=== PATIENT | male | born 1955 | race Two or more races ===

== ENCOUNTER 2020-03-27 07:09 | Outpatient (REF) | payer OTHER, SELFPAY ==
[2020-03-27 08:22] LABS: Hematocrit 44.7 % (42-52); Hemoglobin 14.6 g/dl (14.0-18.0); Mean Corpuscular HGB Conc 32.7 g/dl (31.0-36.0); Mean Corpuscular Hemoglobin 29.6 pg (27.0-33.0); Mean Corpuscular Volume 90.5 fL (80-98); Mean Platelet Volume 9.6 fL (9.4-12.4); Platelet Count 216 X10*3/uL (160-400); Red Blood Count 4.94 X10*6/uL (4.60-5.80)
[2020-03-27 08:42] LABS: Estimated Average Glucose 148 mg/dL; Hemoglobin A1c % 6.8 %
[2020-03-27 08:43] LABS: Alanine Aminotransferase 62 U/L (0-40); Albumin Level 4.5 g/dL (3.5-5.0); Alkaline Phosphatase 75 U/L (39-117); Anion Gap 13 (12-20); Aspartate Amino Transferase 28 U/L (5-37); Bilirubin Total 0.4 mg/dL (0.0-1.0); Blood Urea Nitrogen 21 mg/dL (9-16); Calcium 9.9 mg/dL (8.4-10.2); Carbon Dioxide 29 mmol/L (22-29); Chloride 104 mmol/L (96-108); Cholesterol 142 mg/dL; Estimated Glomerular Filt Rate > 60; Glucose Fasting 155 mg/dL (60-99); HDL Cholesterol 43 mg/dL; LDL Cholesterol Calculated 70 mg/dl; Potassium 4.5 mmol/l (3.3-5.1); Sodium 141 mmol/L (135-145); Total Protein 7.4 g/dL (6.5-8.0); Triglycerides 147 mg/dL
[2020-03-27 08:48] LABS: Microalbum/Creatinine Ratio Ur 29.9 ug/mg cr
[2020-03-27 09:11] LABS: Vitamin D 25-OH Total 37.2 ng/mL (>30)
== END 2020-03-27 07:10 | disposition home or self-care (01) ==
LOC: HO.LAB 07:09
PROVIDERS: PCP Nurse Practitioner Family; Visit Provider Nurse Practitioner Family
DX: E11.29 Type 2 diabetes mellitus with other diabetic kidney complication (principal); E11.69 Type 2 diabetes mellitus with other specified complication; I10 Essential (primary) hypertension; M81.0 Age-related osteoporosis without current pathological fracture; R35.1 Nocturia
CPT/HCPCS: 36415; 80053; 80061; 82043; 82306; 83036; 84153; 85027

== ENCOUNTER 2020-09-04 09:46 | Outpatient (REF) | payer OTHER, SELFPAY ==
[2020-09-04 10:59] LABS: Alanine Aminotransferase 36 U/L (0-40); Albumin Level 4.5 g/dL (3.5-5.0); Alkaline Phosphatase 76 U/L (39-117); Anion Gap 13 (12-20); Aspartate Amino Transferase 21 U/L (5-37); Bilirubin Total 0.7 mg/dL (0.0-1.0); Blood Urea Nitrogen 19 mg/dL (9-16); Carbon Dioxide 28 mmol/L (22-29); Chloride 103 mmol/L (96-108); Estimated Glomerular Filt Rate > 60; Glucose Random 225 mg/dL (60-115); Potassium 4.2 mmol/L (3.3-5.1); Sodium 140 mmol/L (135-145); Total Protein 7.5 g/dL (6.5-8.0)
[2020-09-04 11:23] LABS: Estimated Average Glucose 160 mg/dL; Hemoglobin A1c % 7.2 %
== END 2020-09-04 09:47 | disposition home or self-care (01) ==
LOC: HO.LAB 09:46
PROVIDERS: PCP Family Medicine; Visit Provider Family Medicine
DX: E11.29 Type 2 diabetes mellitus with other diabetic kidney complication (principal); R89.9 Unspecified abnormal finding in specimens from other organs, systems and tissues
CPT/HCPCS: 36415; 80053; 83036

== ENCOUNTER → 2020-12-17 10:16 | Outpatient (BNVA) | payer OTHER, SELFPAY | PROVIDERS: PCP Family Medicine; Referring Provider Family Medicine; Visit Provider Internal Medicine Cardiovascular Disease | DX: I25.10 Atherosclerotic heart disease of native coronary artery without angina pectoris (principal); I11.9 Hypertensive heart disease without heart failure | CPT/HCPCS: 93005; 99212 ==

== ENCOUNTER → 2021-03-18 09:20 | Outpatient (REF) | payer OTHER, SELFPAY ==
--- NOTE | 2021-03-18 09:23 | CA_ITS ---
Transthoracic Echocardiogram Patient (Last, First, Middle): Talha Mendoza, Gender: Male Date of : 1955 Age: 65 Procedure Date: 03/18/2021 Procedure Type: Transthoracic Echocardiogram Location: OP Height: 167.64 cm Weight: 100.25 kg BSA: 2.09 m2 Heart Rate: bpm BP: 128 / 80 mmHg [employer]: MELISA Referring MD: Jeevan Marte MD Informatics Coordinator: Jeevan Marte MD Symptoms: I11.9 - Hypertensive heart disease without heart failure Study Quality: Fair ECG Rhythm: Sinus Conclusions: - 1. Normal LV systolic function with mild LVH with grade 1 diastolic dysfunction 2. Mildly dilated left atrium 3. Normal cardiac valvular Doppler 4. No pulmonary hypertension 5. No gross pericardial effusion Findings Left Ventricle Normal left ventricular size and systolic function. There is mildly increased left ventricular wall thickness. The visually estimated ejection fraction is between 55-60%. Spectral Doppler is indicative of an impaired relaxation filling pattern. E/E prime ratio is <8, consistent with normal filling pressures. Evidence suggests grade I (mild) diastolic dysfunction. Right Ventricle Normal right ventricular cavity size. Atria The left atrium is mildly dilated. Interatrial shunt cannot be excluded. The right atrium is normal in size. Aortic Valve The aortic valve structure and function is likely normal. There is no aortic valve stenosis. There is no aortic valve regurgitation. Mitral Valve Likely normal mitral valve structure and function. There is trace mitral valve regurgitation. There is no mitral valve stenosis. Pulmonic Valve The pulmonic valve was not well visualized. Tricuspid Valve There is trace tricuspid valve regurgitation. There is no evidence of pulmonary hypertension. Great Vessels All visible segments of the aorta are normal in size. The pulmonary artery was not well visualized. Venous The inferior vena cava was not well visualized. Pericardium/Pleural There is no evidence of pericardial effusion. Prior Study Comparison No significant change compared to prior study dated: 11/07/2018. Measurements 2D Linear Measurements IVSd: 1.24 0.6-0.9/0.6-1.0 cm LVIDd: 4.67 3.9-5.3/4.2-5.9 cm LVIDd Index: 2.23 2.4-3.2/2.2-3.1 cm/m2 LVIDs: 2.98 2.0-3.6 cm LVPWd: 1.27 0.7-1.1 cm Ao Root: 3.50 2.1-3.5 cm LA Diam: 4.20 2.7-3.8/3.0-4.0 cm LAIDs Index: 2.01 1.5-2.3 cm/m2 LV Mass: 279.03 67-162/88-224 g LV Mass Index: 133.51 43-95/49-115 g/m2 LVOT Diam: 2.00 3.0+(-)1.3 cm Mitral Valve MV Pk E: 0.47 MV PK A: 0.86 MV Decel Time: 229.00 E/A: 0.50 E'Lateral: 8.49 E'Medial: 6.42 E/E' Med: 7.30 E/E' Lat: 5.50 PHT: 67.00 MVA PHT: 3.28 Decel [place]: 2.06 Aortic Valve AoV Pk Po: 1.32 AoV Mn Po: 0.94 AoV VTI: 0.25 AoV Pk Grad: 7.00 Aov Mn Grad: 4.00 ARNOL Cont.VTI: 2.25 LVOT LVOT Pk Po: 1.05 LVOT Mn Po: 0.62 LVOT VTI: 0.18 LVOT Pk Grad: 4.00 LVOT Mn Grad: 2.00 LVOT Diam: 2.00 LVOT Area: 3.14 Diastolic Function MV Pk E: 0.47 MV Pk A: 0.86 E/A: 0.50 E'Medial: 6.42 E/E' Med: 7.30 E' Laterial: 8.49 E/E' Lat: 5.50 Tricuspid Valve TR Pk Po: 1.75 TR Pk Grad: 12.00 Great Vessels Aorta Ao Root-2D: 3.50 2.0-3.7 cm Ao Asc: 3.40 2.1-3.4 cm Pulmonary Valve PV Pk Po: 0.92 Peak PV Grad: 3.00 Updated in Other Vendor System with Status of Final Jeevan Marte MD electronically signed on 03/18/2021 4:14:05 PM with status of Final
== END ==
LOC: HO.CARD 09:20
PROVIDERS: PCP Family Medicine; Visit Provider Internal Medicine Cardiovascular Disease
DX: I25.10 Atherosclerotic heart disease of native coronary artery without angina pectoris (principal); I11.9 Hypertensive heart disease without heart failure
CPT/HCPCS: 93306

== ENCOUNTER 2021-04-22 08:48 | Outpatient (REF) | payer OTHER, SELFPAY ==
[2021-04-22 09:03] LABS: MANUAL DIFF FLAG NO
[2021-04-22 09:15] LABS: Basophils Percent Auto 0.5 % (0-2); Eosinophils Absolute Auto 0.3 X10*3/uL (0.0-0.4); Eosinophils Percent Auto 3.5 % (0-4); Hematocrit 45.6 % (42-52); Hemoglobin 14.9 g/dl (14.0-18.0); Imm Gran Abs Auto 0.04 X10*3/uL (0.00-0.03); Imm Gran Pct Auto 0.5 % (0.0-0.4); Lymphocytes Absolute Auto 2.9 X10*3/uL (1.2-4.9); Lymphocytes Percent Auto 39.2 % (20-40); Mean Corpuscular HGB Conc 32.7 g/dl (31.0-36.0); Mean Corpuscular Hemoglobin 29.2 pg (27.0-33.0); Mean Corpuscular Volume 89.4 fL (80-98); Mean Platelet Volume 9.2 fL (9.4-12.4); Monocytes Absolute Auto 0.7 X10*3/uL (0.1-1.2); Neutrophils Absolute Auto 3.5 X10*3/uL (2.0-8.3); Neutrophils Percent Auto 47.3 % (45-73); Platelet Count 227 X10*3/uL (160-400); Red Cell Distribution Width 13.2 % (11.0-16.0); White Blood Count 7.4 X10*3/uL (4.8-10.8)
[2021-04-22 09:17] LABS: Estimated Average Glucose 146 mg/dL; Hemoglobin A1c % 6.7 %
[2021-04-22 09:46] LABS: Anion Gap 14 (12-20); Blood Urea Nitrogen 17 mg/dL (9-16); Calcium 10.2 mg/dL (8.4-10.2); Carbon Dioxide 28 mmol/L (22-29); Chloride 105 mmol/L (96-108); Estimated Glomerular Filt Rate > 60; Iron 76 mcg/dL (45-160); Percent Iron Saturation 23 % (15-50); Potassium 4.5 mmol/L (3.3-5.1); Sodium 142 mmol/L (135-145); Total Iron Binding Capacity 337 mcg/dL (228-428); Unsaturated Iron Binding 261 ug/dL
[2021-04-22 09:59] LABS: Appearance Urine CLEAR; Color Urine YELLOW; Glucose Urine UA NEG (NEG); Leukocyte Esterase Urine NEG (NEG); Nitrite Urine NEG (NEG); Specific Gravity - Urine 1.025 (1.005-1.025); Urine Blood NEG (NEG); Urine Ketones NEG (NEG); Urine Protein TRACE MG/DL (NEG-TRACE)
[2021-04-22 10:07] LABS: Vitamin D 25-OH Total 38.5 ng/mL (>30)
[2021-04-22 10:31] LABS: Creatinine Urine 153.48 mg/dL; Protein/Creatinine Ratio, Ur 0.08 (<0.2); Total Protein Urine Random 13 mg/dL (<12)
[2021-04-25 14:31] LABS: Calcium (PTHI) 10.3 mg/dL (8.6-10.3); PTHI 28 pg/mL (14-64)
== END 2021-04-22 08:49 | disposition home or self-care (01) ==
LOC: HO.LAB 08:48
PROVIDERS: PCP Family Medicine; Visit Provider Internal Medicine Nephrology
DX: I12.9 Hypertensive chronic kidney disease with stage 1 through stage 4 chronic kidney disease, or unspecified chronic kidney disease (principal); E11.22 Type 2 diabetes mellitus with diabetic chronic kidney disease; N18.2 Chronic kidney disease, stage 2 (mild)
CPT/HCPCS: 36415; 80051; 81003; 82306; 82310; 82565; 83036; 83540; 83970; 84156; 84520; 85025

== ENCOUNTER 2021-05-12 09:22 | Outpatient (REF) | payer OTHER, SELFPAY ==
--- NOTE | ~2021-05-12 | XR_ITS ---
EXAMINATION: XR SHOULDER, LEFT CLINICAL INFORMATION: Pain in left shoulder COMPARISON: None TECHNIQUE: AP external rotation, Grashey, scapular Y, and axillary views of the left shoulder. FINDINGS: Glenohumeral joint is normal. Minor degenerative joint narrowing and spur of the acromioclavicular joint. No bone erosions. No soft tissue calcification. XR/XR shoulder LT min 2V IMPRESSION: Minor degenerative change of the acromioclavicular joint. Normal glenohumeral joint.
--- NOTE | ~2021-05-12 | XR_ITS ---
EXAMINATION: XR SHOULDER, RIGHT CLINICAL INFORMATION: Pain in right shoulder COMPARISON: None TECHNIQUE: Four views of the right shoulder. FINDINGS: The bones and soft tissues are normal. No fracture. Glenohumeral and acromioclavicular alignment is anatomic with normal joint space. No abnormal soft tissue calcifications. XR/XR shoulder RT min 2V IMPRESSION: Normal right shoulder.
== END 2021-05-12 09:23 | disposition home or self-care (01) ==
LOC: HO.XRAY 09:22
PROVIDERS: PCP Nurse Practitioner Primary Care; Visit Provider Nurse Practitioner Primary Care
DX: M25.511 Pain in right shoulder (principal); M25.512 Pain in left shoulder
CPT/HCPCS: 73030

== ENCOUNTER 2021-09-05 10:22 | Outpatient (REF) | payer OTHER, SELFPAY ==
[2021-09-05 12:33] LABS: Creatinine Urine 79.52 mg/dL; Microalbum/Creatinine Ratio Ur 60.3 ug/mg cr
[2021-09-05 12:43] LABS: Anion Gap 10 (12-20); Blood Urea Nitrogen 18 mg/dL (9-16); Calcium 9.7 mg/dL (8.4-10.2); Carbon Dioxide 28 mmol/L (22-29); Chloride 105 mmol/L (96-108); Estimated Glomerular Filt Rate > 60; Glucose Random 173 mg/dL (60-115); Potassium 4.3 mmol/L (3.3-5.1); Sodium 139 mmol/L (135-145)
== END 2021-09-05 10:23 | disposition home or self-care (01) ==
LOC: HO.LAB 10:22
PROVIDERS: PCP Nurse Practitioner Primary Care; Visit Provider Nurse Practitioner Primary Care
DX: E11.65 Type 2 diabetes mellitus with hyperglycemia (principal)
CPT/HCPCS: 36415; 80048; 82043

== ENCOUNTER → 2021-09-23 08:43 | Outpatient (BNVA) | payer OTHER, SELFPAY | PROVIDERS: PCP Nurse Practitioner Primary Care; Visit Provider Physician Assistant | DX: M75.82 Other shoulder lesions, left shoulder (principal) | CPT/HCPCS: 20610; 99202; J1020 ==

== ENCOUNTER → 2021-11-04 11:07 | Outpatient (BNVA) | payer OTHER, SELFPAY | PROVIDERS: PCP Nurse Practitioner Primary Care; Visit Provider Physician Assistant | DX: M75.82 Other shoulder lesions, left shoulder (principal) | CPT/HCPCS: 99212 ==

== ENCOUNTER 2021-12-02 11:00 | Outpatient (RCR) | payer OTHER, SELFPAY ==
[2021-10-28 10:22] VITALS: BP 134/71; PULSE 74; O2SAT 96
--- NOTE | 2021-10-28 11:47 | MHC.PT.EP ---
[facility] [place] Office [place] Office [place] Office [address] Rad[address] Flanagan [address] [phone] F: [phone] F: [phone] F: [phone] F: [phone] Physical Therapy Plan of Care Date of Evaluation: Date of Surgery: Diagnosis: TENDONITIS LEFT SHOULDER Assessment: 66 YO MALE REF TO PT W 4 MONTH H/O PROGRESSIVE Lt SH PAIN- HE HAD AN INJECTION 09/23/21 W MINIMAL SX RELIEF. 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 OBJECTIVE FINDINGS: DECR POSTURAL AWARENESS, LIMITED CERV AND DARELL SH AROM, STRENGTH DEFICITS IN POST RC/ SCAP MM WELL >SH HEIGHT DUE TO PAIN, AND LEFT SH PAIN W (+) TISSUE TENSION-ESPEC IN POSTERIOR CHAIN. FUNCTIONALLY, Pt IS LIMITED W SLEEP, LIFTING/ CARRYING, HOUSE CHORES- REQ INCR UEs USAGE. Pt WOULD BENEFIT FROM PT TO ADDRESS THE ABOVE FINDINGS, PAIN MGMT, DEV SELF- SX MGMT STRATEGIES, AND EDUC Pt RE BODY MECH W CARETAKING DUTY SIMIL . Frequency and Duration: The patient will be seen 2 x WK x 5 WKS Short Term Goals: Pt INDEP SELF CORRECT POSTURE AND DEMON BODY MECH FOR SIMUL ADL CARE W HIS SPOUSE IN 2 WKS Pt'S POSTERIOR CHAIN TISSUE TENSION EASED AND LEFT SH PAIN DECR TO 2-3/10 IN 2 WKS Pt DEMON WFL AROM Lt SH AND CERV AROM WFL IN 3 WKS Reception Manager Goals: Pt INDEP W HEP PROGRESSION AND SELF-SX MGMT STRATEGIES IN 5 WKS Pt RESUME REG ADLs EVIDENT W IMPROVED SPADI SCORE BY 8-10 POINTS (AT EVAL 94/130 ) IN 5 WKS Treatment Plan: Modalities to reduce pain, spasms and effusion. Manual therapy to restore motion and function. Therapeutic exercise to improve strength and flexibility. Neuromuscular re-education for posture and balance. Therapeutic activities to return to functional activities of daily living. Electronically signed by: Leti Pringle,PT Please sign and return to therapist. Thank you for your referral.
--- NOTE | 2021-12-02 15:09 | MHC.PT.DC ---
[facility] [place] Office [place] Office [place] Office [address] Justa Flanagan [address] [phone] F: [phone] F: [phone] F: [phone] F: [phone] Physical Therapy Discharge Report Diagnosis: TENDONITIS LEFT SHOULDER Date of Surgery: Date of Evaluation: 10/28/21 Date of Discharge: 12/02/21 Treatments to Date: 6 Cancellations to Date: No Shows to Date: Discharge Status: Achieved Goals Improved Function Independent with HEP Discharge Summary: Pt HAS PROGRESSED WELL IN PT- HE STATED HE IS PLEASED W HIS PROGRESS AND IS READY TO CONT W HEP ON HIS OWN. HE HAS BEEN ABLE TO RESUME REG ADLs, SELF CORRECT POSTURE, AND CARE FOR HIS . HIS Lt SHOULDER PAIN IS SIGNIF REDUCED AND NO LONGER CONSTANT. HE MET PT GOALS AND DEMON IMPROVED SPADI SCORE. Electronically signed by: Leti Pringle,PT Please sign and return to therapist. Thank you for your referral.
== END 2021-12-02 15:10 | disposition home or self-care (01) ==
LOC: HO.PT 11:00
PROVIDERS: PCP Nurse Practitioner Primary Care; Visit Provider Physician Assistant
DX: M75.82 Other shoulder lesions, left shoulder (principal)
CPT/HCPCS: 97110; 97162

== ENCOUNTER 2022-01-07 07:12 | Outpatient (REF) | payer OTHER, SELFPAY ==
[2022-01-07 08:56] LABS: Cholesterol 142 mg/dL; HDL Cholesterol 45 mg/dL; LDL Cholesterol Calculated 60 mg/dl; Triglycerides 185 mg/dL
[2022-01-07 09:05] LABS: Estimated Average Glucose 163 mg/dL; Hemoglobin A1c % 7.3 %
== END 2022-01-07 07:13 | disposition home or self-care (01) ==
LOC: HO.LAB 07:12
PROVIDERS: PCP Nurse Practitioner Primary Care; Visit Provider Registered Nurse
DX: Z79.899 Other long term (current) drug therapy (principal)
CPT/HCPCS: 36415; 80061; 83036

== ENCOUNTER 2022-04-27 08:13 | Outpatient (REF) | payer OTHER, SELFPAY ==
[2022-04-27 08:26] LABS: MANUAL DIFF FLAG NO
[2022-04-27 08:48] LABS: Basophils Percent Auto 0.5 % (0-2); Eosinophils Absolute Auto 0.2 X10*3/uL (0.0-0.4); Hemoglobin 14.7 g/dl (14.0-18.0); Imm Gran Abs Auto 0.05 X10*3/uL (0.00-0.03); Imm Gran Pct Auto 0.6 % (0.0-0.4); Lymphocytes Absolute Auto 3.1 X10*3/uL (1.2-4.9); Lymphocytes Percent Auto 39.2 % (20-40); Mean Corpuscular HGB Conc 33.4 g/dl (31.0-36.0); Mean Corpuscular Hemoglobin 28.7 pg (27.0-33.0); Mean Corpuscular Volume 85.9 fL (80.0-98.0); Mean Platelet Volume 9.4 fL (9.4-12.4); Monocytes Absolute Auto 0.8 X10*3/uL (0.1-1.2); Monocytes Percent Auto 9.7 % (2-11); Neutrophils Absolute Auto 3.8 x10*3/uL (2.0-8.3); Platelet Count 209 X10*3/uL (160-400); Red Blood Count 5.12 X10*6/uL (4.60-5.80); Red Cell Distribution Width 13.2 % (11.0-16.0)
[2022-04-27 09:01] LABS: Estimated Average Glucose 180 mg/dL; Hemoglobin A1c % 7.9 %
[2022-04-27 09:13] LABS: Anion Gap 16 (12-20); Blood Urea Nitrogen 19 mg/dL (9-16); Calcium 10.2 mg/dL (8.4-10.2); Chloride 102 mmol/L (96-108); Estimated Glomerular Filt Rate > 60; Iron 73 mcg/dL (45-160); Percent Iron Saturation 21 % (15-50); Potassium 4.2 mmol/L (3.3-5.1); Sodium 141 mmol/L (135-145); Total Iron Binding Capacity 353 mcg/dL (228-428); Unsaturated Iron Binding 280 ug/dL; Uric Acid 5.9 mg/dL (3.4-7.0)
[2022-04-27 09:17] LABS: Carbon Dioxide 27 mmol/L (22-29)
[2022-04-27 09:37] LABS: Ferritin 291 ng/mL (20-250); Vitamin D 25-OH Total 31.9 ng/mL (>30)
[2022-04-27 10:26] LABS: Appearance Urine Clear; Color Urine Yellow; Glucose Urine UA Negative (Negative); Leukocyte Esterase Urine Negative (Negative); Nitrite Urine Negative (Negative); PH 5.5 (5.0-9.0); Urine Blood Negative (Negative); Urine Ketones Negative (Negative); Urine Protein Trace mg/dL (Neg-Trace)
[2022-04-27 10:46] LABS: Creatinine Urine 172.33 mg/dL; Protein/Creatinine Ratio, Ur 0.14 (<0.2); Total Protein Urine Random 24 mg/dL (<12)
[2022-05-01 12:42] LABS: Calcium (PTHI) 10.1 mg/dL (8.6-10.3); PTHI 38 pg/mL (16-77)
== END 2022-04-27 08:14 | disposition home or self-care (01) ==
LOC: HO.LAB 08:13
PROVIDERS: PCP Nurse Practitioner Primary Care; Visit Provider Physician Assistant
DX: E11.22 Type 2 diabetes mellitus with diabetic chronic kidney disease (principal); N18.2 Chronic kidney disease, stage 2 (mild); D50.8 Other iron deficiency anemias; E55.9 Vitamin D deficiency, unspecified
CPT/HCPCS: 36415; 80051; 81003; 82306; 82310; 82565; 82728; 83036; 83540; 83970; 84156; 84520; 84550; 85025

== ENCOUNTER 2022-08-11 13:03 | Outpatient (REF) | payer OTHER, SELFPAY ==
--- NOTE | ~2022-08-11 | US_ITS ---
EXAMINATION: US RETROPERITONEAL LIMITED (AORTA) CLINICAL INFORMATION: Screening for cardiovascular disorders. Smoker. COMPARISON: None TECHNIQUE: Riggs-scale, color Doppler and spectral Doppler evaluation of the abdominal aorta. FINDINGS: The aorta is normal. The measurements of the aorta in maximum AP and transverse dimensions respectively are as follows: Proximal: 2.2 x 2.6 cm. Mid: 1.8 x 1.6 cm. Distal: 1.7 x 1.6 cm. PSV: 98 cm/s. The measurements of the common iliac arteries in maximum AP and TRV dimensions are as follows: Right Common Iliac Artery: 1.0 x 1.1 cm. Left Common Iliac Artery: 0.9 x 1.1 cm. US/US abdominal aortic aneurysm IMPRESSION: There is mild ectasia of the proximal abdominal aorta. No jose aneurysm formation is noted.
== END 2022-08-11 13:04 | disposition home or self-care (01) ==
LOC: HO.US 13:03
PROVIDERS: Visit Provider Nurse Practitioner Primary Care
DX: Z13.6 Encounter for screening for cardiovascular disorders (principal); Z87.891 Personal history of nicotine dependence
CPT/HCPCS: 76706

== ENCOUNTER 2022-10-06 13:04 | Outpatient (REF) | payer OTHER, SELFPAY ==
--- NOTE | ~2022-10-06 | CT_ITS ---
EXAMINATION: CT CHEST SCREENING CLINICAL INFORMATION: Former smoker. Quit 8 years ago. 48 pack year history. COMPARISON: Previous chest x-ray April 2018 TECHNIQUE: Multidetector volumetric CT imaging of the chest is performed without contrast using low dose technique. Additional 2D coronal and sagittal reformatted images and axial 3D maximum intensity projection (MIP) images are generated on the CT workstation. This CT examination was performed using dose optimization techniques as appropriate, variously including the following: *Automated exposure control *Adjustment of mA and/or kV according to patient size (this includes techniques or standardized protocols for targeted exams where dose is matched to indication/reason for exam; i.e. extremities or head) *Use of iterative reconstruction technique DLP: 57 mGy-cm FINDINGS: LUNGS: 2 mm peripheral or subpleural right lower lobe nodule axial image 255 and axial image 276 series 5. No endobronchial or endotracheal lesion. MEDIASTINUM: The mediastinum is normal. CORONARY ARTERY CALCIFICATION: None visualized on this study. PLEURA: There is no pleural effusion. No pleural mass or thickening. AXILLA: Small bilateral axillary lymph nodes. No chest wall mass or enlarged axillary lymph nodes UPPER ABDOMEN: There is a mild diverticulosis colon. OSSEOUS STRUCTURES: Degenerative changes of the spine. CT/CT lung screening IMPRESSION: Small pulmonary nodules or micronodules in the right lower lobe. ASSESSMENT: Lung-RADS category 2: Benign RECOMMENDATION: Annual low-dose chest CT follow-up recommended
== END 2022-10-06 13:05 | disposition home or self-care (01) ==
LOC: HO.CT 13:04
PROVIDERS: PCP Nurse Practitioner Primary Care; Visit Provider Physician Assistant Medical
DX: Z12.2 Encounter for screening for malignant neoplasm of respiratory organs (principal); Z87.891 Personal history of nicotine dependence
CPT/HCPCS: 71271; G0296

== ENCOUNTER 2022-10-12 10:38 | Outpatient (REF) | payer OTHER, SELFPAY ==
--- NOTE | ~2022-10-12 | XR_ITS ---
EXAMINATION: XR HIP, RIGHT CLINICAL INFORMATION: Right hip pain. COMPARISON: CT dated 03/03/2013. TECHNIQUE: AP and frog-leg lateral views of the right hip. FINDINGS: Two partially-threaded cannulated screws are appropriately situated at the femoral head and neck. No appreciable residual or recurrent fracture lines. There is mild osteoarthritis at the right hip with marginal osteophytes and subtle cortical irregularity. Joint space appears relatively well preserved. Foci of periosteal bone formation at the proximal femoral diaphysis appear chronic and are likely enthesopathic in nature. No aggressive osseous lesions. Soft tissues are unremarkable. XR/XR hip RT min 2V IMPRESSION: 1. Mild osteoarthritis in the right hip. No acute osseous findings. 2. Old healed right femoral neck fracture status post ORIF.
== END 2022-10-12 10:39 | disposition home or self-care (01) ==
LOC: HO.XRAY 10:38
PROVIDERS: PCP Nurse Practitioner Primary Care; Visit Provider Nurse Practitioner Primary Care
DX: M25.551 Pain in right hip (principal)
CPT/HCPCS: 73502

== ENCOUNTER → 2022-12-18 10:20 | Outpatient (BNVA) | payer OTHER, SELFPAY | PROVIDERS: PCP Nurse Practitioner Primary Care; Referring Provider Nurse Practitioner Primary Care; Visit Provider Internal Medicine Cardiovascular Disease | DX: I25.10 Atherosclerotic heart disease of native coronary artery without angina pectoris (principal); I11.9 Hypertensive heart disease without heart failure | CPT/HCPCS: 93005; 99212 ==

== ENCOUNTER 2023-03-25 08:40 | Emergency (ER) | payer OTHER, SELFPAY ==
--- NOTE | ~2023-03-25 | XR_ITS ---
EXAMINATION: XR RIBS, BILATERAL CLINICAL INFORMATION: Right rib pain. Trauma. COMPARISON: Previous chest x-ray April [address] September 2022 TECHNIQUE: 3 views of the bilateral ribs were obtained. FINDINGS: Lungs are clear. No consolidation, pneumothorax, or pleural effusion. The cardiomediastinal silhouette and pulmonary vasculature are normal. Old-appearing right anterior eighth rib fracture. There may be a fracture of the right anterior seventh rib near the costochondral junction. This is indeterminate in age. No left-sided rib fracture. Degenerative changes of the thoracic spine. XR/XR ribs BI min 4V w CXR1V IMPRESSION: No evidence for acute disease in the chest. Old-appearing right eighth anterior rib fracture. Question right anterior seventh rib fracture near the costochondral junction, indeterminate age. No left rib fracture.
[2023-03-25 08:42] VITALS: BP 153/76; PULSE 94; RESP 16; TEMP 36.7; O2SAT 95; BMI 34.7
--- NOTE | 2023-03-25 09:15 | ED.GENADULT ---
HPI - General Adult General Chief complaint: General Medical Stated complaint: hit his R side Time Seen by Provider: 03/25/23 08:54 Source: patient Mode of arrival: ambulatory Limitations: no limitations History of Present Illness HPI narrative: 67 year old male with PMHx significant for CAD, HTN, HDL, aortic ectasia, diabetes, GERD, SRINATH, and tubular adenoma of colon presenting to the ED today with right-sided rib pain after reaching into the back seat of his vehicle to reach for something and jamming his ribs into the center console 3 days ago. Reports pain began the following day and has been constant since, unchanged. Reports pain to the lower anterior and lateral rib area without radiation, worse with coughing and with palpation. Additionally endorses dry cough over the last 4 days along with left-sided shoulder pain at x2 weeks. Denies DENNEY, dizziness, fever, chills, sweats, rash, chest pain, SOB, MART, N/V, abdominal pain, or LE swelling or pain. Former tobacco smoker, quit in 2011. Related Data Home Medications Medication Instructions Recorded Confirmed acetaminophen 500 mg capsule 500 mg PO Q6H PRN 12/17/20 12/18/22 albuterol 90 mcg/actuation aerosol mcg inhalation 12/17/20 12/18/22 inhaler albuterol sulfate 2.5 mg/3 mL 2.5 mg inhalation Q4-6H PRN 12/17/20 12/18/22 (0.083 %) solution for nebulization amlodipine 10 mg tablet (Norvasc) 10 mg PO DAILY 12/17/20 12/18/22 blood sugar diagnostic (FreeStyle #10 ea 12/17/20 Lite Strips) calcium carbonate 500 mg calcium 500 mg PO DAILY 12/17/20 12/18/22 (1,250 mg) tablet (Calcium 500) cholecalciferol (vitamin D3) 25 25 mcg PO DAILY 12/17/20 12/18/22 mcg (1,000 unit) capsule clonazepam 1 mg tablet (Klonopin) 1 mg PO DAILY 12/17/20 12/18/22 cyclobenzaprine 10 mg tablet 10 mg PO TID 12/17/20 12/18/22 escitalopram oxalate 10 mg tablet 10 mg PO DAILY 12/17/20 12/18/22 flunisolide 25 mcg (0.025 %) nasal 2 spray intranasal BID 12/17/20 12/18/22 spray losartan 100 mg tablet 100 mg PO DAILY 12/17/20 12/18/22 metformin 500 mg tablet,extended 500 mg PO DAILY 12/17/20 12/18/22 release 24 hr montelukast 10 mg tablet 10 mg PO QPM 12/17/20 12/18/22 pravastatin 20 mg tablet 20 mg PO BEDTIME 12/17/20 12/18/22 ranitidine HCl 150 mg capsule mg PO 12/17/20 12/18/22 risperidone 1 mg tablet (Risperdal) 1 mg PO BID 12/17/20 12/18/22 Previous Rx's Medication Instructions Recorded clopidogrel 75 mg tablet 75 mg PO DAILY 90 days #90 tabs 05/17/22 tramadol 50 mg tablet 50 mg PO BEDTIME PRN pain (scale 03/25/23 score 7-10) #10 tabs tramadol 50 mg tablet 50 mg PO BEDTIME PRN pain (scale 03/25/23 score 7-10) #14 tabs Allergies Allergy/AdvReac Type Severity Reaction Status Date / Time aspirin Allergy Unknown SWELLING Verified 03/25/23 08:42 diphenhydramine Allergy Unknown RASH Verified 03/25/23 08:42 [From Benadryl] ibuprofen Allergy Unknown SWELLING Verified 03/25/23 08:42 indomethacin [From INDOCIN] Allergy Unknown UNKNWON Verified 03/25/23 08:42 NSAIDS (Non-Steroidal Allergy Unknown RASH Verified 03/25/23 08:42 Anti-Inflamma oxycodone Allergy Unknown SWELLING Verified 03/25/23 08:42 penicillin V Allergy Unknown Unknown Verified 03/25/23 08:42 Penicillins Allergy Unknown RASH Verified 03/25/23 08:42 tolmetin [TOLMETIN] Allergy Unknown UNKNOWN Verified 03/25/23 08:42 Codeine Phosphate Allergy Unknown Unknown Uncoded 03/25/23 08:42 Review of Systems Review of Systems: Constitutional: No fever, chills, fatigue, night sweats, weight changes ENT/Mouth: No ear pain, hearing loss, nasal congestion, sinus pain, rhinorrhea, sore throat Eyes: No eye pain, swelling, redness, vision changes, discharge Cardio: No chest pain, palpitations, MART, orthopnea, peripheral edema Pulm: No SOB, + cough, No sputum, wheezing, dyspnea, hemoptysis GI: No nausea, vomiting, hematemesis, abdominal pain, diarrhea, constipation, hematochezia, melena : No irregular bleeding, dysuria, frequency, urgency, hesitancy, hematuria, flank pain, urinary flow changes, urinary incontinence or retention MSK: No back pain, neck pain, joint pain, myalgias, + rib pain Skin: No lesions, rashes Neuro: No weakness, numbness, paresthesias, LOC, dizziness, headache All other systems reviewed and are negative. FORMERLY [facility], [facility] Past Medical History Attestation statement: The following information was validated with the patient. Source: old records reviewed and nursing notes reviewed Medical History SRINATH (obstructive sleep apnea) Osteopenia Tubular adenoma of colon History of hepatitis C GERD (gastroesophageal reflux disease) Hyperlipidemia Personal history of nicotine dependence Diabetes mellitus HTN (hypertension) Hypertensive heart disease CAD (coronary artery disease) Surgical History History of hand surgery History of endoscopy History of hip surgery History of meniscectomy of right knee History of cardiac cath History of colonoscopy History of blepharoplasty Social History Social History Patient Tobacco Use Status: Former Tobacco user Years Smoked: (former smoker, onset 15yo, 1ppd x 41yrs, 40pyh, quit ~2011) Advance Directives: Yes Advance Directives Information Provided: Yes Advance Directives on File: No Current occupational status: disabled Current occupation: rt hand Physical Exam ED Vital Signs: Vital Signs - 24 hr 03/25/23 08:42 03/25/23 11:02 Temperature 98.0 F Pulse Rate 94 86 Respiratory Rate 16 18 Blood Pressure 153/76 H 128/78 Pulse Oximetry 95 95 Oxygen Delivery Method Room Air Room Air BMI result Body Mass Index 34.7 Vital signs stable. Lying comfortably on the bed. Const General: cooperative, no acute distress, alert and awake Orientation/consciousness: patient oriented x3 Limitations: no limitations HENMT Head: Yes normal to inspection Ears: hearing grossly normal bilaterally General nose exam: Normal external nose present Eyes General: appearance normal, both eyes and all related structures Pupils: Equal, round and reactive pupils present Neck Neck: Yes normal visual inspection and Yes no meningeal signs Chest Other: Chest wall without erythema, ecchymoses, rash, obvious deformity. + tender to palpation over the right 6th-10th anterior and lateral ribs without crepitus or palpable deformity. Chest palpation & inspection: normal inspection of the chest, normal palpation of entire chest wall and No rash Resp Other: Symmetric chest wall movement without segmental paradoxical chest wall movement to indicate flail chest. Effort & Inspection: normal respiratory effort, able to speak in complete sentences, no nasal flaring, no pursed lip breathing, no respiratory distress, not tachypneic, no tracheal deviation, no tripod positioning, no use of accessory muscles and No prolonged expiratory phase Auscultation: clear to auscultation bilaterally Cardio Rate: regular rate Rhythm: regular rhythm Heart sounds: S1 normal heart sound present and S2 normal heart sound present Peripheral pulses: Peripheral pulses 2+ throughout GI Inspection: Yes normal to inspection and No abdominal wall ecchymosis Palpation (GI): Soft to palpation, nontender, no guarding, hepatosplenomegaly present, no pulsatile masses and No Rebound tenderness present General: Yes no CVA tenderness Back/Spine/Pelvis Back: no CVA tenderness Skin General skin exam: no rashes or lesions noted Neuro General: patient oriented x3, gait normal, moves all extremities and no meningeal signs Cranial nerves: Yes CN's II-XII intact bilaterally and Yes Equal, round and reactive pupils present Extrem General: Yes normal to inspection, Yes full ROM, Yes capillary refill normal, Yes no clubbing, cyanosis or edema, Yes no pedal edema and Yes no calf tenderness Course Course Course Narrative: 1034-- CBC without leukocytosis or anemia. Chemistry without acute electrolyte abnormality requiring intervention. BNP wnl. Troponin negative. EKG with NSR at a rate of 89 bpm, normal QT, no ischemic changes. This is unlikely ACS. Serology negative for COVID and influenza. Lipase slightly elevated to 180, no concern for acute pancreatitis as this is not 3x the upper limit and patient does not have epigastric pain or tenderness to palpation. > awaiting rib/chest x-ray 1117-- x-ray of chest/ribs does not reveal infiltrate or consolidation suggestive of pneumonia or pneumothorax. It does show an old 8th rib fracture which the patient tells me may have occurred when he fell and broke his right hip years ago. It also shows a ? new anterior 7th rib fracture near the costochrondral junction. > on re-evaluation patient states that his pain is somewhat improved with the Tylenol and lidocaine patch. Will trial a dose of tramadol in ED & observe. > discussed lab and imaging results with patient. If patient tolerates tramadol well in ED, will send him home with Lidoderm patches and tramadol for pain control along with incentive spirometry. 1216-- patient tolerating tramadol well. Nurse has educated him on incentive spirometer. Patient stating he is feeling better and would like to be discharged home. His vital signs are still stable. All questions answered at this time. Discussed return precautions. Patient agreeable with discharge plan. Patient stable to be discharged home with his daughter. Medications Administered Discontinued Medications Generic Name Dose Route Start Last Admin Trade Name Freq PRN Reason Stop Dose Admin Acetaminophen 975 mg 03/25/23 09:31 03/25/23 09:41 Acetaminophen 325 Mg Tablet PO 03/25/23 09:32 975 mg ONCE ONE Administration Lidocaine 1 patch 03/25/23 09:39 03/25/23 09:54 Lidocaine 4 % Patch Adh..Patch TRANSDERMA 03/25/23 09:40 1 patch ONCE ONE Administration Protocol Tramadol HCl 50 mg 03/25/23 11:21 03/25/23 11:31 Tramadol Hcl 50 Mg Tablet PO 03/25/23 11:22 50 mg ONCE ONE Administration Medical Decision Making Medical Decision Making MDM Narrative: 67 year old male with PMHx significant for CAD, HTN, HDL, aortic ectasia, diabetes, GERD, SRINATH, and tubular adenoma of colon presenting to the ED today with right-sided rib pain after reaching into the back seat of his vehicle to reach for something and jamming his ribs into the center console 3 days ago. VSS, afebrile, not tachycardic. Chest wall without erythema, ecchymoses, rash, obvious deformity. Tender to palpation over the right 6th-10th anterior and lateral ribs without crepitus or palpable deformity. Symmetric chest wall movement without segmental paradoxical chest wall movement to indicate flail chest. Lungs CTA b/l. No epigastric tenderness. No JVD or pedal edema. Pulses 2+ throughout. Cap refill <2 sec throughout. Clinical concern for msk sprain/ strain vs rib fracture vs viral syndrome. Low suspicion for PE, pleural effusion, pnuemonia, tension/pneumothorax. Unlikely ACS, arrhythmia, dissection, or effusion. Plan at this time is pain control, labs, EKG, troponin, chest/ rib radiographs. Differential Diagnosis Differential Diagnoses: The differential diagnosis associated with the presentation includes As above. Admission/Observation Consideration of admission/observation: Escalation of care including admission/observation considered In this 67-year-old patient with extensive cardiac history and right anterior chest pain, admission was considered. Lab Data MDM Lab Attestation statement: I reviewed the patient's lab results. As above. 03/25/23 10:19 03/25/23 10:19 Labs: Lab Results 03/25/23 03/25/23 03/25/23 Range/Units 09:49 09:51 09:52 WBC (4.8-10.8) X10*3/uL RBC (4.60-5.80) X10*6/uL Hgb (14.0-18.0) g/dl Hct (42.0-52.0) % MCV (80.0-98.0) fL MCH (27.0-33.0) pg MCHC (31.0-36.0) g/dl RDW (11.0-16.0) % Plt Count (160-400) X10*3/uL MPV (9.4-12.4) fL Immature Gran % (Auto) (0.0-0.4) % Neut % (Auto) (45-73) % Lymph % (Auto) (20-40) % [place] % (Auto) (2-11) % Eos % (Auto) (0-4) % Baso % (Auto) (0-2) % Lymph # (Auto) (1.2-4.9) X10*3/uL [place] # (Auto) (0.1-1.2) X10*3/uL Eos # (Auto) (0.0-0.4) X10*3/uL Baso # (Auto) (0.0-0.2) X10*3/uL Abs Immat Gran (auto) (0.00-0.03) X10*3/uL Absolute Neuts (auto) (2.0-8.3) x10*3/uL Absolute Nucleated RBC (0.0-0.012) X10*3/uL Nucleated RBC % (auto) (0.0-0.2) /100WBC Sodium (135-145) mmol/L Potassium (3.3-5.1) mmol/L Chloride (96-108) mmol/L Carbon Dioxide (22-29) mmol/L Anion Gap (12-20) BUN (9-16) mg/dL Creatinine (0.5-1.4) mg/dL Estim Creat Clear Calc Estimated GFR Random Glucose (60-115) mg/dL Calcium (8.4-10.2) mg/dL Magnesium (1.6-2.6) mg/dL Total Bilirubin (0.0-1.0) mg/dL AST (5-37) U/L ALT (0-40) U/L Alkaline Phosphatase (39-117) U/L Troponin I High Sens < 2.7 (<3.5-35.0) ng/L B-Natriuretic Peptide (<100) pg/mL Total Protein (6.5-8.0) g/dL Albumin (3.5-5.0) g/dL Lipase (8-78) U/L COVID-19 (SHA) Negative (Negative) COVID-19 Clin Com See Note Influenza Type A (JAMES) Negative (Negative) Influenza Type B (JAMES) Negative (Negative) Influenza A & B Note See Note 03/25/23 Range/Units 10:19 WBC 6.6 (4.8-10.8) X10*3/uL RBC 5.16 (4.60-5.80) X10*6/uL Hgb 14.7 (14.0-18.0) g/dl Hct 44.9 (42.0-52.0) % MCV 87.0 (80.0-98.0) fL MCH 28.5 (27.0-33.0) pg MCHC 32.7 (31.0-36.0) g/dl RDW 13.5 (11.0-16.0) % Plt Count 163 (160-400) X10*3/uL MPV 9.7 (9.4-12.4) fL Immature Gran % (Auto) 0.6 H (0.0-0.4) % Neut % (Auto) 49.9 (45-73) % Lymph % (Auto) 37.0 (20-40) % [place] % (Auto) 9.5 (2-11) % Eos % (Auto) 2.7 (0-4) % Baso % (Auto) 0.3 (0-2) % Lymph # (Auto) 2.5 (1.2-4.9) X10*3/uL [place] # (Auto) 0.6 (0.1-1.2) X10*3/uL Eos # (Auto) 0.2 (0.0-0.4) X10*3/uL Baso # (Auto) 0.0 (0.0-0.2) X10*3/uL Abs Immat Gran (auto) 0.04 H (0.00-0.03) X10*3/uL Absolute Neuts (auto) 3.3 (2.0-8.3) x10*3/uL Absolute Nucleated RBC 0.000 (0.0-0.012) X10*3/uL Nucleated RBC % (auto) 0.0 (0.0-0.2) /100WBC Sodium 139 (135-145) mmol/L Potassium 4.4 (3.3-5.1) mmol/L Chloride 104 (96-108) mmol/L Carbon Dioxide 26 (22-29) mmol/L Anion Gap 13 (12-20) BUN 20 H (9-16) mg/dL Creatinine 0.91 (0.5-1.4) mg/dL Estim Creat Clear Calc 87.9 Estimated GFR > 60 Random Glucose 150 H (60-115) mg/dL Calcium 10.4 H (8.4-10.2) mg/dL Magnesium 1.8 (1.6-2.6) mg/dL Total Bilirubin 0.4 (0.0-1.0) mg/dL AST 34 (5-37) U/L ALT 57 H (0-40) U/L Alkaline Phosphatase 84 (39-117) U/L Troponin I High Sens (<3.5-35.0) ng/L B-Natriuretic Peptide < 10 (<100) pg/mL Total Protein 7.7 (6.5-8.0) g/dL Albumin 4.3 (3.5-5.0) g/dL Lipase 180 H (8-78) U/L COVID-19 (SHA) (Negative) COVID-19 Clin Com Influenza Type A (JAMES) (Negative) Influenza Type B (JAMES) (Negative) Influenza A & B Note Independent Interpretation I performed an independent interpretation of an: EKG and Plain X-Ray Interpretation: EKG with NSR, rate of 89 bpm, QT 370, no acute ischemic changes. CXR without infiltrates, consolidations, or pneumothorax, agree with radiologist's interpretation Xray ribs showing fracture of 7th and 8th anterior ribs, agree with radiologist's interpretation. Radiology Impression Discussion of test interpretation with radiology: I have reviewed the radiologist's reading. Radiologist Impression: XR ribs BI min 4V w CXR1V IMPRESSION: No evidence for acute disease in the chest. Old-appearing right eighth anterior rib fracture. Question right anterior seventh rib fracture near the costochondral junction, indeterminate age. No left rib fracture. Independent Historian Clinical information obtained from an independent historian. History obtained from or confirmed by: Other (daughter) External Record Review External record reviewed: Inpatient record, Office record, Outpatient record, Prior outpatient labs, Prior outpatient radiology, Primary care record and Outside ED record Prescription Management I considered prescription management with: Pain Medication Chronic Conditions Patient?s care impacted by: Diabetes, Hypertension and Other (CAD) Critical Care Time Critical Care Time Critical Care Time: No Discharge Plan Discharge Clinical Impression: Closed rib fracture, Right rib fracture Patient Disposition: Home, Self-Care Instructions: Rib Fracture (ED) Additional Instructions: Your lab workup today was reassuring. Your cardiac enzymes were negative. You chest x-ray did not show pneumonia or acute pathology. The x-ray of your ribs showed an old fracture of the 8th bed along with a question new fracture of the 7th rib. This is likely what is causing your pain. Tramadol is in a narcotic pain reliever. This was chosen as an option for you as you have many allergies to other pain control. You were given a dose in the emergency department today and tolerated this well. This will be sent to your pharmacy for you to take as needed for right rib pain. Additionally you were given an incentive spirometer and educated on how to use it in the emergency department. Use this at home to aid with breathing and lung expansion. Follow-up with your primary care provider. Additionally a referral to orthopedist has been provided to you. You may follow-up with them as needed. If your symptoms persist or worsen, return to the emergency department. The case of emergency call 911. Tus enzimas card?acas fueron negativas. Cunningham radiograf?a de t?rax no mostr? neumon?a ni patolog?a aguda. La radiograf?a de delia costillas mostr? nicole rob fractura del octavo lecho junto con nicole posible nueva fractura de la s?ptima radha. Es probable que esto sea lo que est? causando cunningham dolor. Tramadol se encuentra en un analg?sico narc?jacquie. Bonesteel fue elegido bethany nicole opci?n para usted, ya que tiene muchas alergias a otros analg?sicos. Hoy le smalls administrado nicole dosis en el servicio de urgencias y la denney tolerado stephanie. Bonesteel se enviar? a cunningham farmacia para que lo tome seg?n sea necesario para el dolor de la radha derecha. Adem?s, se le entreg? un espir?metro de incentivo y se le ense?? c?mo usarlo en el departamento de emergencias. ?selo en casa para ayudar con la respiraci?n y la expansi?n pulmonar. Gregoria un seguimiento con cunningham proveedor de atenci?n primaria. Adem?s, se le denney proporcionado nicole derivaci?n a un ortopedista. Puede hacer un seguimiento con ellos seg?n sea necesario. Si delia s?ntomas persisten o empeoran, regrese al departamento de emergencias. El dawit de emergencia llama al 91. Prescriptions: New tramadol 50 mg tablet 50 mg PO BEDTIME PRN (Reason: pain (scale score 7-10)) Qty: 14 0RF tramadol 50 mg tablet 50 mg PO BEDTIME PRN (Reason: pain (scale score 7-10)) Qty: 10 0RF No Action clopidogrel 75 mg tablet 75 mg PO DAILY 90 Days Qty: 90 0RF Rx Instructions: LAST REFILL - OVERDUE for Follow Up Appt. MUST CALL to schedule follow up appt for 2022 to receive future refills; [phone]. clonazepam [Klonopin] 1 mg tablet 1 mg PO DAILY risperidone [Risperdal] 1 mg tablet 1 mg PO BID ranitidine HCl 150 mg capsule PO cyclobenzaprine 10 mg tablet 10 mg PO TID metformin 500 mg tablet extended release 24 hr 500 mg PO DAILY losartan 100 mg tablet 100 mg PO DAILY amlodipine [Norvasc] 10 mg tablet 10 mg PO DAILY cholecalciferol (vitamin D3) 25 mcg (1,000 unit) capsule 25 mcg PO DAILY pravastatin 20 mg tablet 20 mg PO BEDTIME albuterol sulfate 2.5 mg /3 mL (0.083 %) solution for nebulization 2.5 mg inhalation Q4-6H PRN escitalopram oxalate 10 mg tablet 10 mg PO DAILY montelukast 10 mg tablet 10 mg PO QPM (DME) FreeStyle Lite Strips Strip See Rx Instructions .ROUTE .MEDSUPPLY Qty: 10 Rx Instructions: As directed flunisolide 25 mcg (0.025 %) spray,non-aerosol 2 spray intranasal BID albuterol 90 mcg/actuation aerosol inhalation acetaminophen 500 mg capsule 500 mg PO Q6H PRN calcium carbonate [Calcium 500] 500 mg calcium (1,250 mg) tablet 500 mg PO DAILY Referrals: [facility] [Provider Group] Minnie Almonte NP [Primary Care Provider] - Stand Alone Forms: Work/School Release
--- NOTE | 2023-03-25 09:31 | ECG_ITS ---
Test Reason : CP Blood Pressure : / mmHG Vent. Rate : 089 BPM Atrial Rate : 089 BPM P-R Int : 168 ms QRS Dur : 094 ms QT Int : 370 ms P-R-T Axes : 020 013 011 degrees QTc Int : 450 ms Normal sinus rhythm Normal ECG When compared with ECG of 06-MAY-2018 11:42, No significant change was found Referred By: Jerrica Rashid Electronically Signed By:RACHEL METZ
[2023-03-25] MEDS: Acetaminophen 325 MG TABLET 975 MG PO (09:41)
[2023-03-25] MEDS: Lidocaine 4 % Patch ADH..PATCH 1 PATCH TRANSDERMA (09:54)
[2023-03-25 10:12] LABS: COVID-19 Test Negative (Negative); IDNOW Serial# 08D9AD1C
[2023-03-25 10:13] LABS: IDNOW Serial# BCCEAD1C; Influenza A Negative (Negative); Influenza B2 Negative (Negative)
[2023-03-25 10:22] LABS: Troponin-I High Sensitivity < 2.7 ng/L (<3.5-35.0)
[2023-03-25 10:23] LABS: MANUAL DIFF FLAG NO
[2023-03-25 10:28] LABS: Basophils Percent Auto 0.3 % (0-2); Eosinophils Absolute Auto 0.2 X10*3/uL (0.0-0.4); Eosinophils Percent Auto 2.7 % (0-4); Hematocrit 44.9 % (42.0-52.0); Hemoglobin 14.7 g/dl (14.0-18.0); Imm Gran Abs Auto 0.04 X10*3/uL (0.00-0.03); Imm Gran Pct Auto 0.6 % (0.0-0.4); Lymphocytes Absolute Auto 2.5 X10*3/uL (1.2-4.9); Mean Corpuscular HGB Conc 32.7 g/dl (31.0-36.0); Mean Corpuscular Hemoglobin 28.5 pg (27.0-33.0); Mean Platelet Volume 9.7 fL (9.4-12.4); Monocytes Absolute Auto 0.6 X10*3/uL (0.1-1.2); Monocytes Percent Auto 9.5 % (2-11); Neutrophils Absolute Auto 3.3 x10*3/uL (2.0-8.3); Neutrophils Percent Auto 49.9 % (45-73); Platelet Count 163 X10*3/uL (160-400); Red Blood Count 5.16 X10*6/uL (4.60-5.80); Red Cell Distribution Width 13.5 % (11.0-16.0); White Blood Count 6.6 X10*3/uL (4.8-10.8)
[2023-03-25 10:47] LABS: Alanine Aminotransferase 57 U/L (0-40); Albumin Level 4.3 g/dL (3.5-5.0); Alkaline Phosphatase 84 U/L (39-117); Anion Gap 13 (12-20); Aspartate Amino Transferase 34 U/L (5-37); Bilirubin Total 0.4 mg/dL (0.0-1.0); Blood Urea Nitrogen 20 mg/dL (9-16); Calcium 10.4 mg/dL (8.4-10.2); Carbon Dioxide 26 mmol/L (22-29); Chloride 104 mmol/L (96-108); Creatinine Clr Calc Pharmacy 87.9; Estimated Glomerular Filt Rate > 60; Glucose Random 150 mg/dL (60-115); Lipase 180 U/L (8-78); Magnesium 1.8 mg/dL (1.6-2.6); Potassium 4.4 mmol/L (3.3-5.1); Sodium 139 mmol/L (135-145); Total Protein 7.7 g/dL (6.5-8.0)
[2023-03-25 11:02] VITALS: BP 128/78; PULSE 86; RESP 18; O2SAT 95
[2023-03-25 11:20] LABS: B Type Natriuretic Peptide < 10 pg/mL (<100)
[2023-03-25] MEDS: traMADoL HCL 50 MG TABLET PO (11:31)
--- NOTE | 2023-03-25 11:56 | PC.NURSE ---
patient given incentive spirometer with education on use, tolerated well
[2023-03-26 08:19] LABS: HBS Num1 120.78 mIU/mL (0-7.99); HBc Num1 5.19 S/CO (0.00-0.79); Hepatitis A Antibody IgM 0.19 Index (0-0.79); Hepatitis B Surface Antigen Negative (Negative); ~HepC Num1 3.82 S/CO (0.00-0.79); ~Hepatitis A Antibody IgM Nonreactive (Nonreactive); ~Hepatitis B Surface Antibody REACTIVE (Nonreactive); ~Hepatitis C Antibody Reactive (Nonreactive)
[2023-03-26 09:36] LABS: HBc Num2 5.32 S/CO; HBc Num3 5.44 S/CO; Hepatitis B Core Antibody Reactive (Nonreactive)
== END 2023-03-25 12:25 | disposition home or self-care (01) ==
PROVIDERS: Physician Assistant Medical; Emergency Provider Emergency Medicine; PCP Nurse Practitioner Primary Care
DX: S22.31XA Fracture of one rib, right side, initial encounter for closed fracture (principal); R07.81 Pleurodynia; R07.89 Other chest pain; X58.XXXA Exposure to other specified factors, initial encounter; Y93.9 Activity, unspecified; Y92.9 Unspecified place or not applicable; Y99.9 Unspecified external cause status; Z79.899 Other long term (current) drug therapy; Z20.822 Contact with and (suspected) exposure to COVID-19; Z20.828 Contact with and (suspected) exposure to other viral communicable diseases
CPT/HCPCS: 36415; 71111; 80053; 83690; 83735; 83880; 84484; 85025; 86704; 86706; 86709; 86803; 87340; 87502; 87635; 93005; 99284

== ENCOUNTER 2023-03-30 11:29 | Outpatient (REF) | payer OTHER, SELFPAY | END 2023-03-30 11:30 | disposition home or self-care (01) | LOC: HO.LAB 11:29 | PROVIDERS: PCP Nurse Practitioner Primary Care; Visit Provider Registered Nurse | DX: F41.1 Generalized anxiety disorder (principal); F33.3 Major depressive disorder, recurrent, severe with psychotic symptoms; Z79.899 Other long term (current) drug therapy | CPT/HCPCS: 36415; 80061; 83036 ==

== ENCOUNTER 2023-05-01 09:17 | Outpatient (REF) | payer OTHER, SELFPAY ==
--- NOTE | ~2023-05-01 | MM_ITS ---
EXAMINATION: BONE DENSITOMETRY CLINICAL INDICATION: Osteoporosis with recent fracture. COMPARISON: Previous BD dated 05/03/2010 and baseline BD dated 10/26/2006. TECHNIQUE: Using a [employer] DXA System (software version: 13.1) manufactured by [employer] dual-energy x-ray absorptiometry was performed of the lumbar spine, left hip, and left forearm radius 33%. The images are of good technical quality. Summary results are attached. FINDINGS: LEFT FEMUR, NECK: Current: BMD 0.852 g/cm2, Z-score -1.0, T-score -1.7, osteopenia. Prior: BMD 0.766 g/cm2. Baseline: BMD 0.766 g/cm2. LEFT FEMUR, TOTAL: Current: BMD 0.920 g/cm2, Z-score -1.1, T-score -1.3, osteopenia, 8.0% increase from previous, 8.5% increase from baseline (<5% change is not significant). Prior: BMD 0.852 g/cm2. Baseline: BMD 0.848 g/cm2. AP SPINE L1-L4: Current: BMD 1.553 g/cm2, Z-score 2.6, T-score 2.8, normal, 55.6% increase from previous, 71.8% increase from baseline (<5% change is not significant). Prior: BMD 0.998 g/cm2. Baseline: BMD 0.904 g/cm2. LEFT FOREARM RADIUS 33%: BMD 0.949 g/cm2, Z-score 0.3, T-score -0.4, normal. IDENTIFIED RISK FACTORS: Glucocorticoids (chronic), height loss, history of fracture (adult), secondary osteoporosis (liver disease). HISTORY OF FRACTURE: Hip, other fractures. MEDICATIONS: Calcium or multivitamin. Vitamin D. MM/XR DEXA axial skeleton IMPRESSION: 1. DIAGNOSIS: Osteopenia based on the lowest T-score value of -1.7 in the femoral neck applying World Health Organization criteria. 2. 10-YEAR FRACTURE RISK PREDICTION, FRAX: Major osteoporotic fracture (clinical spine, forearm, hip or shoulder) 9.1%. Hip fracture 1.8%. 3. Treatment Recommendations: NOF guidelines recommend consideration for treatment in postmenopausal women and men age 50 and older presenting with the following: -A hip or vertebral (clinical or morphometric) fracture. -T-score less than or equal to -2.5 at the femoral neck or spine after appropriate evaluation to exclude secondary causes. -Low bone mass at the hip or spine and a 10-year fracture probability by FRAX of greater than or equal to 3% for hip fracture or greater than or equal to 20% for major osteoporotic fracture based on the [place] adapted WHO algorithm. 4. Other Recommendations: All treatment decisions require clinical judgment and consideration of individual patient factors, including patient preferences, comorbidities, previous drug use, risk factors not captured in the FRAX model (e.g. frailty, falls, vitamin D deficiency, increased bone turnover, interval significant decline in bone density) and possible under or overestimation of fracture risk by FRAX. Additional medical evaluation for secondary cause of low bone mineral density may be appropriate. FUTURE SCAN RECOMMENDATION: People with diagnosed cases of osteoporosis or at high risk for fracture should have regular bone mineral density tests. For patients eligible for Medicare, routine testing is allowed once every 2 years. The testing frequency can be increased to one year for patients who have rapidly progressing disease, those who are receiving or discontinuing medical therapy to restore bone mass, or have additional risk factors.
== END 2023-05-01 09:18 | disposition home or self-care (01) ==
LOC: HO.MAMMO 09:17
PROVIDERS: PCP Nurse Practitioner Primary Care; Visit Provider Nurse Practitioner Primary Care
DX: Z13.820 Encounter for screening for osteoporosis (principal); M81.0 Age-related osteoporosis without current pathological fracture
CPT/HCPCS: 77080

== ENCOUNTER 2023-05-23 09:15 | Outpatient (AMB) | payer OTHER, SELFPAY ==
--- NOTE | 2023-05-23 09:22 | A.OFFVIS_ITS ---
Intake Intake Visit Reasons: New Prob -Rt hip pain Intake Note: Evaristo 67 year old male presents today for an evaluation of right hip pain. Patient reports pain has been present for a while, he was last seen for his right hip by NE on 11/16/11 and referred patient to pain management. According to NE last ov note patient underwent cannulated screw fixation of a femoral neck fracture several years ago. No hx of injections. He states having ongoing pain for many years and its been getting worse over time. Allergies aspirin Allergy (Unknown, Verified 05/23/23 09:24) SWELLING diphenhydramine [From Benadryl] Allergy (Unknown, Verified 05/23/23 09:24) RASH ibuprofen Allergy (Unknown, Verified 05/23/23 09:24) SWELLING indomethacin [From INDOCIN] Allergy (Unknown, Verified 05/23/23 09:24) UNKNWON NSAIDS (Non-Steroidal Anti-Inflamma Allergy (Unknown, Verified 05/23/23 09:24) RASH oxycodone Allergy (Unknown, Verified 05/23/23 09:24) SWELLING penicillin V Allergy (Unknown, Verified 05/23/23 09:24) Unknown Penicillins Allergy (Unknown, Verified 05/23/23 09:24) RASH tolmetin [TOLMETIN] Allergy (Unknown, Verified 05/23/23 09:24) UNKNOWN Codeine Phosphate Allergy (Unknown, Uncoded 03/25/23 08:42) Unknown HPI New Prob -Rt hip pain HPI Details 67-year-old male who presents to the off ice today with an director technical for evaluation of right hip pain. He was seen by Dr. Florez on 11/15/22 for right hip pain and had undergone cannulated screw fixation of femoral neck fracture. He was also referred to pain management for therapy and he started experiencing the pain s/p therapy exercises. He states the pain is located along the lateral aspect of the hip which radiates down the leg and also across his low back. He states the pain does improve with exercises. [facility] Medical History SRINATH (obstructive sleep apnea) Osteopenia Tubular adenoma of colon History of hepatitis C GERD (gastroesophageal reflux disease) Hyperlipidemia Personal history of nicotine dependence Diabetes mellitus HTN (hypertension) Hypertensive heart disease CAD (coronary artery disease) Surgical History History of hand surgery History of endoscopy History of hip surgery History of meniscectomy of right knee History of cardiac cath History of colonoscopy History of blepharoplasty Social History Patient Tobacco Use Status: Former Tobacco user Years Smoked: (former smoker, onset 15yo, 1ppd x 41yrs, 40pyh, quit ~2011) Current occupational status: disabled Current occupation: rt hand Review of Systems Const All systems reviewed & are unremarkable except as noted in HPI and below Physical Exam Extrem Other: Right hip: Normal to inspection. No pain with ROM of the hip. Pain along the greater trochanter. No pain with hip flexion or abduction. Negative tenderness along the SI joint, Negative SLR. NVI. Results Reviewed Results Reviewed: xrays of the right hip obtained on 10/12/22 show cannulated screws intact Assessment & Plan Assessment & Plan (1) Trochanteric bursitis of right hip: Code(s): M70.61 - Trochanteric bursitis, right hip (2) Iliotibial band syndrome affecting right lower leg: Code(s): M76.31 - Iliotibial band syndrome, right leg Plan We discussed options which include PT, NSAIDs and injections. The patient will defer on formal therapy, physical therapy and injection today and proceed with NSAIDs. He was also given a handout of home exercises in the office today. If symptoms persist, the patient will contact me for an injection, otherwise, PRN. Patient Instructions: Scribed for Sigifredo Salazar PA-C, by Daryn Moran medical certification specialist, on 05/23/2023 at 9:30 AM EST. Sigifredo Lopez PA-C, have personally reviewed and agree with the information entered by the scribe. Coding Level of Care Code Est Pt Level 3 (79558) Diagnoses Trochanteric bursitis of right hip M70.61 Iliotibial band syndrome affecting right lower leg M76.31
== END 2023-05-23 10:04 | disposition home or self-care (01) ==
PROVIDERS: PCP Nurse Practitioner Primary Care; Visit Provider Physician Assistant
DX: M70.61 Trochanteric bursitis, right hip (principal); M76.31 Iliotibial band syndrome, right leg
CPT/HCPCS: 99213

== ENCOUNTER → 2023-05-23 09:15 | Outpatient (BNVA) | payer OTHER, SELFPAY | PROVIDERS: PCP Nurse Practitioner Primary Care; Visit Provider Physician Assistant | DX: M70.61 Trochanteric bursitis, right hip (principal); M76.31 Iliotibial band syndrome, right leg | CPT/HCPCS: 99212 ==

== ENCOUNTER 2023-06-20 09:51 | Outpatient (AMB) | payer OTHER, SELFPAY ==
--- NOTE | 2023-06-20 09:56 | A.OFFVIS_ITS ---
Intake Intake Visit Reasons: incomplete bladder emptying Intake Note: NEW Patient presents today to established treatment for Incomplete Bladder Emptying: Meds- None Allergies to Antibiotic- Penicillin Blood Thinner- None Post Void Residual: 62 mL Adobe Layer Required: No Accompanied by: Self / Same As Patient Allergies aspirin Allergy (Unknown, Verified 06/20/23 10:13) SWELLING diphenhydramine [From Benadryl] Allergy (Unknown, Verified 06/20/23 10:13) RASH ibuprofen Allergy (Unknown, Verified 06/20/23 10:13) SWELLING indomethacin [From INDOCIN] Allergy (Unknown, Verified 06/20/23 10:13) UNKNWON NSAIDS (Non-Steroidal Anti-Inflamma Allergy (Unknown, Verified 06/20/23 10:13) RASH oxycodone Allergy (Unknown, Verified 06/20/23 10:13) SWELLING penicillin V Allergy (Unknown, Verified 06/20/23 10:13) Unknown Penicillins Allergy (Unknown, Verified 06/20/23 10:13) RASH tolmetin [TOLMETIN] Allergy (Unknown, Verified 06/20/23 10:13) UNKNOWN Codeine Phosphate Allergy (Unknown, Uncoded 06/20/23 10:13) Unknown Medication List - Last Reconciled 06/20/23 by Janet Segura MD acetaminophen 500 mg PO Q6H PRN albuterol 90 mcg/actuation mcg inhalation albuterol sulfate 2.5 mg inhalation Q4-6H PRN alfuzosin ER 10 mg PO DAILY amlodipine (Norvasc) 10 mg PO DAILY blood sugar diagnostic (FreeStyle Lite Strips) As directed calcium carbonate (Calcium 500) 500 mg PO DAILY cholecalciferol (vitamin D3) 25 mcg PO DAILY clonazepam (Klonopin) 1 mg PO DAILY clopidogrel 75 mg PO DAILY 90 days cyclobenzaprine 10 mg PO TID escitalopram oxalate 10 mg PO DAILY flunisolide 2 sprays intranasal BID losartan 100 mg PO DAILY metformin ER 500 mg PO DAILY montelukast 10 mg PO QPM pravastatin 20 mg PO BEDTIME ranitidine HCl mg PO risperidone (Risperdal) 1 mg PO BID solifenacin (Vesicare) 10 mg PO BEDTIME tramadol 50 mg PO BEDTIME PRN tramadol 50 mg PO BEDTIME PRN HPI HPI Comments History of Present Illness Details Talha is a 67 year old male who is here for evaluation for LUTS of hesitency, and urgency. AUA symptom questionaire completed - score 18. Past Medical history SRINATH (obstructive sleep apnea) Osteopenia Tubular adenoma of colon History of hepatitis C GERD (gastroesophageal reflux disease) Hyperlipidemia Personal history of nicotine dependence Diabetes mellitus HTN (hypertension) Hypertensive heart disease CAD (coronary artery disease) The patient complains of daytime urinary frequency every 45 min - 1 hours, ocassional urge urinary incontinence, he does not currently wear a pad, nocturia every 2-3 hrs, denies hematuria, denies dysuria, history of nicotine use. CoMorbidity- Diabetes I have reviewed chart, labs- FaE0z--39/6/23--7.4, 03/25/23--BUn/creat --20/0.91 I have discussed avoiding dietary bladder irritants, including to cut back on caffeine usage UA - Leuks- neg, blood neg, glu - 3+ Plan: Us retroperitoneum, PSA alfluzosin vesicare fu 6 weeks PFSH Medical History SRINATH (obstructive sleep apnea) Osteopenia Tubular adenoma of colon History of hepatitis C GERD (gastroesophageal reflux disease) Hyperlipidemia Personal history of nicotine dependence Diabetes mellitus HTN (hypertension) Hypertensive heart disease CAD (coronary artery disease) Surgical History History of hand surgery History of endoscopy History of hip surgery History of meniscectomy of right knee History of cardiac cath History of colonoscopy History of blepharoplasty Social History Patient Tobacco Use Status: Former Tobacco user Years Smoked: (former smoker, onset 15yo, 1ppd x 41yrs, 40pyh, quit ~2011) Current occupational status: disabled Current occupation: rt hand Questionnaire AUA Symptom Score AUA Incomplete emptying - It does not feel like I empty my bladder all the way.: 2 - Less than half the time Frequency - I have to go again less than two hours after I finish urinating.: 5 - Almost always Intermittency - I stop and start again several times when I urinate.: 1 - Less than 1 time in 5 Urgency - It is hard to wait when I have to urinate.: 1 - Less than 1 time in 5 Weak stream - I have a weak urinary stream.: 2 - Less than half the time Straining - I have to push or strain to begin urination.: 3 - About half the time Nocturia - I get up to urinate after I go to bed until the time I get up in the morning.: 4 times AUA Symptom Score: 18 Quality of life due to urinary symptoms: If you were to spend the rest of your life with your urinary condition the way it is now, how would you feel about that?: Mixed: about equally satisfied and dissatisfied Source: Erik COMER, Laura PONCE Jr, O'Yoly MP, et al, and the Measurement Committee of the [place] [employer]. The [place] [employer] symptom index for benign prostatic hyperplasia. J Urol. 1992; 148: 3302-5595. Copyright 1992 [place] [employer] Review of Systems Const All systems reviewed & are unremarkable except as noted in HPI and below Reports no additional complaints Eyes Reports no additional complaints ENT Reports no additional complaints Card Denies dyspnea Resp Denies cough and Denies dyspnea GI Reports no additional complaints Musc Reports no additional complaints Skin/Breast Denies rash and Denies unusual bruising Neuro Reports no additional complaints Psych Reports no additional complaints Endo Reports no additional complaints Dave/Lymph Reports no additional complaints Aller/Immun Reports no additional complaints Physical Exam Const General: healthy appearing, no acute distress and well developed Orientation/consciousness: patient oriented x3 HEENT Head: Yes normocephalic and Yes atraumatic Eyes Conjunctivae: conjunctivae normal Neck Neck: Yes normal visual inspection Chest Chest palpation & inspection: normal inspection of the chest Resp Effort & Inspection: normal respiratory effort Cardio Rate: regular rate GI Inspection: Yes normal to inspection Palpation (GI): Soft to palpation Skin General skin exam: no rashes or lesions noted Neuro General: patient oriented x3 Extrem General: No pedal edema Psych Appearance: grossly normal Affect: normal affect Office Procedures Post Void Residual Post Residual Void Post Void Residual (PVR): 62 [id number] Void Residual by ultrasound Results AMB Urinalysis, Automated UA Leukoctes 0 Mary Lou/uL Last Edit by Brennen Perez [facility] on 06/20/23 10:16 UA Nitrite Negative Last Edit by Brennen Perez [facility] on 06/20/23 10:16 UA Urobilinogen 0.2 mg/dL Last Edit by Brennen Perez [facility] on 06/20/23 10:1 6 UA Protein 0 mg/dL Last Edit by Brennen Perez [facility] on 06/20/23 10:16 UA pH 6.0 Last Edit by Brennen Perez [facility] on 06/20/23 10:16 UA Blood 0 Jovi/uL Last Edit by Brennen Perez [facility] on 06/20/23 10:16 UA Specific Horse Shoe 1.015 Last Edit by Brennen Perez [facility] on 06/20/23 10: 16 UA Ketone Negative Last Edit by Brennen Perez [facility] on 06/20/23 10:16 UA Bilirubin 0 mg/dL Last Edit by Brennen Perez [facility] on 06/20/23 10:16 UA Glucose 1000 mg/dL Last Edit by Brennen Perez [facility] on 06/20/23 10:16 3+ Brennen Perez 06/20/23 10:16 Results Reviewed Results Reviewed: Laboratory Last Values Urine pH (Auto) 6.0 06/20/23 10:07 Specific Horse Shoe (Auto) 1.015 06/20/23 10:07 Urine Protein (Auto) 0 mg/dL 06/20/23 10:07 Glucose (UA)(Auto) 1000 mg/dL 06/20/23 10:07 Urine Ketones (Auto) Negative 06/20/23 10:07 Urine Blood (Auto) 0 Jovi/uL 06/20/23 10:07 Urine Nitrite (Auto) Negative 06/20/23 10:07 Urine Bilirubin (Auto) 0 mg/dL 06/20/23 10:07 Urine Urobilinogen (Auto) 0.2 mg/dL 06/20/23 10:07 Leukocyte Esterase (Auto) 0 Mary Lou/uL 06/20/23 10:07 Assessment & Plan Assessment & Plan (1) Urinary urgency: Code(s): R39.15 - Urgency of urination (2) Weak urinary stream: Code(s): R39.12 - Poor urinary stream (3) Diabetes mellitus: Comment: (T2DM, with neuropathy) Code(s): E11.9 - Type 2 diabetes mellitus without complications (4) Personal history of nicotine dependence: Comment: (former smoker, onset 15yo, 1ppd x 41yrs, 40pyh, quit ~2011) Code(s): Z87.891 - Personal history of nicotine dependence (5) BPH loc w urin obs/LUTS: Code(s): N40.1 - Benign prostatic hyperplasia with lower urinary tract symptoms Plan Plan: Us retroperitoneum, PSA alfluzosin vesicare fu 6 weeks Orders: Orders AMB Urinalysis Automated Today Z13.9 - Encounter for screening, unspecified US retroperitoneal comp Today R39.12 - Poor urinary stream, R39.15 - Urgency of urination AMB Post Void Residual by ultrasound Today N39.8 - Other specified disorders of urinary system PSA,Total (Free>4and<10) Today N40.1 - Benign prostatic hyperplasia with lower urinary tract symptoms Medications: New alfuzosin ER administer after the same meal each day 10 mg PO DAILY 60 tabs 2RF solifenacin (Vesicare) 10 mg PO BEDTIME 30 tabs 2RF Patient Instructions: The patient had an opportunity to ask questions regarding treatment plan. All questions were answered. Laboratory studies and physical exam results were discussed and reviewed in detail. No major barriers to understanding were identified. The patient expressed understanding and agreement with the above treatment plan. The patient is aware they should contact our office by phone for worsening of their current condition or the appearance of new symptoms. Compliance is encouraged with any medications and followup testing that is ordered. It is a privilege to be allowed the opportunity to participate in the urologic care of your patient. If you have any questions or concerns regarding treatment for the above conditions please do not hesitate to contact me. The office telephone contact is [phone]. This note is constructed in part using voice recognition software. While every effort has been made to ensure accuracy customer consultant errors may have been included. Yours sincerely, Janet Segura MD Quality Reporting (2019) Benign Prostatic Hyperplasia ([facility] 771) AUA symptom score: 18 Quality of life due to urinary symptoms: If you were to spend the rest of your life with your urinary condition the way it is now, how would you feel about that?: Mixed: about equally satisfied and dissatisfied Coding Level of Care Code New Pt Level 4 (29634) Diagnoses Urinary urgency R39.15 Weak urinary stream R39.12 Diabetes mellitus E11.9 Personal history of nicotine dependence Z87.891 BPH loc w urin obs/LUTS N40.1 CPT Codes Post Residual Void - PVR CPT Code: 60193-[id number] Void Residual by ultrasound ([id number])
== END 2023-06-20 11:13 | disposition home or self-care (01) ==
PROVIDERS: PCP Nurse Practitioner Primary Care; Visit Provider Urology
DX: R39.15 Urgency of urination (principal); R39.12 Poor urinary stream; E11.9 Type 2 diabetes mellitus without complications; Z87.891 Personal history of nicotine dependence; N40.1 Benign prostatic hyperplasia with lower urinary tract symptoms; Z13.9 Encounter for screening, unspecified
CPT/HCPCS: 99204

== ENCOUNTER → 2023-06-20 09:51 | Outpatient (BNVA) | payer OTHER, SELFPAY | PROVIDERS: PCP Nurse Practitioner Primary Care; Visit Provider Urology | DX: N40.1 Benign prostatic hyperplasia with lower urinary tract symptoms (principal); R39.15 Urgency of urination; R39.12 Poor urinary stream; E11.9 Type 2 diabetes mellitus without complications; Z87.891 Personal history of nicotine dependence | CPT/HCPCS: 51798; 81003; 99202 ==

== ENCOUNTER 2023-06-30 08:35 | Outpatient (REF) | payer OTHER, SELFPAY ==
[2023-06-30 10:24] LABS: Alanine Aminotransferase 45 U/L (0-40); Albumin Level 4.4 g/dL (3.5-5.0); Alkaline Phosphatase 99 U/L (39-117); Anion Gap 14 (12-20); Aspartate Amino Transferase 24 U/L (5-37); Bilirubin Direct 0.3 mg/dL (0.0-0.5); Bilirubin Total 0.6 mg/dL (0.0-1.0); Blood Urea Nitrogen 19 mg/dL (9-16); Calcium 10.2 mg/dL (8.4-10.2); Carbon Dioxide 28 mmol/L (22-29); Chloride 102 mmol/L (96-108); Cholesterol 132 mg/dL (<200); Estimated Glomerular Filt Rate > 60; Glucose Random 171 mg/dL (60-115); HDL Cholesterol 40 mg/dL (>40); LDL Cholesterol Calculated 66 mg/dL (<100); Lipase 29 U/L (8-78); Potassium 4.4 mmol/L (3.3-5.1); Sodium 140 mmol/L (135-145); Total Protein 7.9 g/dL (6.5-8.0); Triglycerides 130 mg/dL (<150)
[2023-07-05 11:48] LABS: VITAMIN D (1,25 OH) D3 31 pg/mL; Vit D (1,25-Dihydroxy) Total 31 pg/mL (18-72); Vitamin D (1,25 OH) D2 <8 pg/mL
== END 2023-06-30 08:36 | disposition home or self-care (01) ==
LOC: HO.LAB 08:35
PROVIDERS: Absent Provider Nurse Practitioner Primary Care; PCP Nurse Practitioner Primary Care; Visit Provider Urology
DX: N40.1 Benign prostatic hyperplasia with lower urinary tract symptoms (principal); E11.69 Type 2 diabetes mellitus with other specified complication; E78.5 Hyperlipidemia, unspecified; I10 Essential (primary) hypertension; R33.9 Retention of urine, unspecified; R74.8 Abnormal levels of other serum enzymes; M80.00XD Age-related osteoporosis with current pathological fracture, unspecified site, subsequent encounter for fracture with routine healing; X58.XXXD Exposure to other specified factors, subsequent encounter; Z12.5 Encounter for screening for malignant neoplasm of prostate
CPT/HCPCS: 36415; 80048; 80061; 80076; 82043; 82570; 82607; 82652; 83690; 84153

== ENCOUNTER 2023-07-27 10:12 | Outpatient (REF) | payer OTHER, SELFPAY ==
--- NOTE | ~2023-07-27 | US_ITS ---
EXAMINATION: US RETROPERITONEAL COMPLETE (RENAL) CLINICAL INFORMATION: Urgency of urination. COMPARISON: None available. TECHNIQUE: Real-time imaging of the kidneys and bladder. FINDINGS: RIGHT KIDNEY: 12.7 x 5.3 x 5.8 cm (SAG x AP x TRV). The kidney is normal in size, contour, and echogenicity. Renal cortical thickness is normal. No calculi or focal parenchymal lesions. No hydronephrosis. LEFT KIDNEY: 13.0 x 6.2 x 5.6 cm (SAG x AP x TRV). The kidney is normal in size, contour, and echogenicity. Renal cortical thickness is normal. No calculi or focal parenchymal lesions. No hydronephrosis. BLADDER: Well distended and normal. Bilateral ureteral jets are demonstrated. Prevoid bladder volume is 129.5 mL. Postvoid bladder volume is 31.8 mL. ADDITIONAL FINDINGS: The prostate measures 49 mL US/US retroperitoneal comp IMPRESSION: Enlarged prostate measuring 49 mL. Small post void bladder residual volume of 32 mL. No hydronephrosis..
== END 2023-07-27 10:13 | disposition home or self-care (01) ==
LOC: HO.US 10:12
PROVIDERS: PCP Nurse Practitioner Primary Care; Visit Provider Urology
DX: R39.15 Urgency of urination (principal); R39.12 Poor urinary stream
CPT/HCPCS: 76770

== ENCOUNTER 2023-08-02 11:43 | Outpatient (AMB) | payer OTHER, SELFPAY ==
--- NOTE | 2023-08-02 12:12 | A.OFFVIS_ITS ---
Intake Intake Visit Reasons: 6wks follow up/PSA/Imaging Intake Note: Patient presents today for a follow-up on PSA Results Meds- None Allergies to Antibiotic- Penicillin Blood Thinner- None Fitness And Wellness Coordinator Required: No Accompanied by: Self / Same As Patient Allergies aspirin Allergy (Unknown, Verified 08/10/23 08:22) SWELLING diphenhydramine [From Benadryl] Allergy (Unknown, Verified 08/10/23 08:22) RASH ibuprofen Allergy (Unknown, Verified 08/10/23 08:22) SWELLING indomethacin [From INDOCIN] Allergy (Unknown, Verified 08/10/23 08:22) UNKNWON NSAIDS (Non-Steroidal Anti-Inflamma Allergy (Unknown, Verified 08/10/23 08:22) RASH oxycodone Allergy (Unknown, Verified 08/10/23 08:22) SWELLING penicillin V Allergy (Unknown, Verified 08/10/23 08:22) Unknown Penicillins Allergy (Unknown, Verified 08/10/23 08:22) RASH tolmetin [TOLMETIN] Allergy (Unknown, Verified 08/10/23 08:22) UNKNOWN Codeine Phosphate Allergy (Unknown, Uncoded 06/20/23 10:13) Unknown HPI HPI Comments History of Present Illness Details Talha presents for telehealth follow-up to review PSA results. He was initially evaluated on 06/20/2023 for lower urinary tract symptoms secondary to BPH. He was started on alfuzosin and VESIcare. He states urinary symptoms have improved. I reviewed PSA results-06/30/2023--0.65 ng/mL; renal ultrasound 07/27/2023--kidneys within normal limits, estimated prostate volume 49 mL. Review of chart: 06/20/2023-- Talha is a 67 year old male who is here for evaluation for LUTS of hesitency, and urgency. AUA symptom questionaire completed - score 18. Past Medical history SRINATH (obstructive sleep apnea) Osteopenia Tubular adenoma of colon History of hepatitis C GERD (gastroesophageal reflux disease) Hyperlipidemia Personal history of nicotine dependence Diabetes mellitus HTN (hypertension) Hypertensive heart disease CAD (coronary artery disease) The patient complains of daytime urinary frequency every 45 min - 1 hours, ocassional urge urinary incontinence, he does not currently wear a pad, nocturia every 2-3 hrs, denies hematuria, denies dysuria, history of nicotine use. CoMorbidity- Diabetes I have reviewed chart, labs- [id number]--34/6/23--7.4, 03/25/23--BUn/creat --20/0.91 I have discussed avoiding dietary bladder irritants, including to cut back on caffeine usage UA - Leuks- neg, blood neg, glu - 3+ Plan: Us retroperitoneum, PSA alfluzosin vesicare fu 6 weeks PFSH Medical History SRINATH (obstructive sleep apnea) Osteopenia Tubular adenoma of colon History of hepatitis C GERD (gastroesophageal reflux disease) Hyperlipidemia Personal history of nicotine dependence Diabetes mellitus HTN (hypertension) Hypertensive heart disease CAD (coronary artery disease) Surgical History History of hand surgery History of endoscopy History of hip surgery History of meniscectomy of right knee History of cardiac cath History of colonoscopy History of blepharoplasty Social History Patient Tobacco Use Status: Former Tobacco user Years Smoked: (former smoker, onset 15yo, 1ppd x 41yrs, 40pyh, quit ~2011) Current occupational status: disabled Current occupation: rt hand Results Reviewed Results Reviewed: Date of Service: 07/27/23 EXAMINATION: US RETROPERITONEAL COMPLETE (RENAL) CLINICAL INFORMATION: Urgency of urination. COMPARISON: None available. TECHNIQUE: Real-time imaging of the kidneys and bladder. FINDINGS: RIGHT KIDNEY: 12.7 x 5.3 x 5.8 cm (SAG x AP x TRV). The kidney is normal in size, contour, and echogenicity. Renal cortical thickness is normal. No calculi or focal parenchymal lesions. No hydronephrosis. LEFT KIDNEY: 13.0 x 6.2 x 5.6 cm (SAG x AP x TRV). The kidney is normal in size, contour, and echogenicity. Renal cortical thickness is normal. No calculi or focal parenchymal lesions. No hydronephrosis. BLADDER: Well distended and normal. Bilateral ureteral jets are demonstrated. Prevoid bladder volume is 129.5 mL. Postvoid bladder volume is 31.8 mL. ADDITIONAL FINDINGS: The prostate measures 49 mL IMPRESSION: Enlarged prostate measuring 49 mL. Small post void bladder residual volume of 32 mL. No hydronephrosis.. Assessment & Plan Assessment & Plan (1) Urinary urgency: Code(s): R39.15 - Urgency of urination (2) Weak urinary stream: Code(s): R39.12 - Poor urinary stream (3) Diabetes mellitus: Comment: (T2DM, with neuropathy) Code(s): E11.9 - Type 2 diabetes mellitus without complications (4) Personal history of nicotine dependence: Comment: (former smoker, onset 15yo, 1ppd x 41yrs, 40pyh, quit ~2011) Code(s): Z87.891 - Personal history of nicotine dependence (5) BPH loc w urin obs/LUTS: Code(s): N40.1 - Benign prostatic hyperplasia with lower urinary tract symptoms Plan Continue alfluzosin, vesicare fu 4 months Telehealth Telehealth Location of provider rendering services: practice address Location of patient: address on file Patient Identification confirmed using: Name, : Yes Telehealth method: voice only Patient verbally consented to treatment: Yes Patient verbally consented to billing insurance company: Yes Patient informed of any privacy concerns related to visit: Yes Minutes spent on Phone/Video with Pt.: 12 Coding Level of Care Code Tele Est Pt Level 3 (56704) Diagnoses Urinary urgency R39.15 Weak urinary stream R39.12 Diabetes mellitus E11.9 Personal history of nicotine dependence Z87.891 BPH loc w urin obs/LUTS N40.1
== END 2023-08-02 12:25 | disposition home or self-care (01) ==
LOC: HO.HUSH 11:44
PROVIDERS: PCP Nurse Practitioner Primary Care; Visit Provider Urology
DX: R39.15 Urgency of urination (principal); R39.12 Poor urinary stream; E11.9 Type 2 diabetes mellitus without complications; Z87.891 Personal history of nicotine dependence; N40.1 Benign prostatic hyperplasia with lower urinary tract symptoms
CPT/HCPCS: 99442

== ENCOUNTER → 2023-08-02 11:43 | Outpatient (BNVA) | payer OTHER, SELFPAY | PROVIDERS: PCP Nurse Practitioner Primary Care; Visit Provider Urology ==

== ENCOUNTER 2023-08-10 08:01 | Outpatient (AMB) | payer OTHER, SELFPAY ==
--- NOTE | 2023-08-10 08:16 | A.OFFVIS_ITS ---
Intake Vital Signs 08/10/23 08:25 Height 5 ft 6 in Weight 211 lb 4 oz BMI 34.1 BP 120/70 Blood Pressure Location Lt brachial Position Sitting Pulse 52 Pulse Source Pulse Oximeter Pulse Oximetry (%) 94 Oxygen Delivery Method Room Air Intake Visit Reasons: Obstructive sleep apnea-LVM Intake Note: Patient presents for still snoring, sleep during day, gets up a lot at night, legs jerk on their own. Allergies aspirin Allergy (Unknown, Verified 08/10/23 08:22) SWELLING diphenhydramine [From Benadryl] Allergy (Unknown, Verified 08/10/23 08:22) RASH ibuprofen Allergy (Unknown, Verified 08/10/23 08:22) SWELLING indomethacin [From INDOCIN] Allergy (Unknown, Verified 08/10/23 08:22) UNKNWON NSAIDS (Non-Steroidal Anti-Inflamma Allergy (Unknown, Verified 08/10/23 08:22) RASH oxycodone Allergy (Unknown, Verified 08/10/23 08:22) SWELLING penicillin V Allergy (Unknown, Verified 08/10/23 08:22) Unknown Penicillins Allergy (Unknown, Verified 08/10/23 08:22) RASH tolmetin [TOLMETIN] Allergy (Unknown, Verified 08/10/23 08:22) UNKNOWN Codeine Phosphate Allergy (Unknown, Uncoded 06/20/23 10:13) Unknown HPI HPI Comments History of Present Illness Details 67 y/o male patient with pmx of CAD, T2D M presents for new in-person visit for sleep consultation. Pt reports he was diagnosed with SRINATH more than 5 years ago. He has been using CPAP, but his CPAP did not work, and stopped using it. Pt continues to experiences snoring, disrupted sleep, wakes up several times at night. He feels tired all day, can doze off during daytime. leep questionnaire: Have you ever been diagnosed with a sleep disorder? Yes, SRINATH more than 5 years ago. Have you ever had a sleep study in the past? Yes. Have you ever been treated for a sleep disorder? Yes, with CPAP, but it does not work anymore. Do you take medications for a sleep disorder? No. Do you snore? Yes. Do you wake up gasping at night? No. Do you have episodes of apneas? Yes. If yes, are they witnessed? Yes. Do you have episodes of nocturnal chest pain or dyspnea? No. Do you have difficulty initiating sleep? Yes. Do you have difficulty maintaining sleep? Yes. Do you wake up tired? Yes. Do you have headaches upon awakening? No. Do you wake up with dry mouth or throat? No. Do you have GERD? Yes. Do you have nocturia? Yes. Do you have nocturnal leg cramps? Yes. Do you have symptoms of restless legs? Yes. Do you act out your dreams? No. Sleep hygiene questionnaire: What is your usual sleep routine? Usual bedtime is at 10-11 pm; Usual wake up time is at 4:30- 5 am. Do you take naps? Yes. Is your sleep environment cool, dark, and quiet? Yes. Do you exercise? Yes, Do you take caffeine or other stimulants? Coffee in the morning. Do you use electronics in bed? Yes. What is your work schedule? Retired. Hypersomnolence questionnaire: Do you have daytime tiredness or fatigue? Yes. Do you easily fall asleep when inactive? Yes Have you ever had episodes of sudden weakness? No. Have you ever had episodes of sudden weakness associated with strong emotions? No. PFSH Medical History SRINATH (obstructive sleep apnea) Osteopenia Tubular adenoma of colon History of hepatitis C GERD (gastroesophageal reflux disease) Hyperlipidemia Personal history of nicotine dependence Diabetes mellitus HTN (hypertension) Hypertensive heart disease CAD (coronary artery disease) Surgical History History of hand surgery History of endoscopy History of hip surgery History of meniscectomy of right knee History of cardiac cath History of colonoscopy History of blepharoplasty Social History Patient Tobacco Use Status: Former Tobacco user Years Smoked: (former smoker, onset 15yo, 1ppd x 41yrs, 40pyh, quit ~2011) Current occupational status: disabled Current occupation: rt hand Review of Systems Const All systems reviewed & are unremarkable except as noted in HPI and below Physical Exam Vital Signs: Last Vital Signs Pulse 52 08/10/23 08:25 BP 120/70 08/10/23 08:25 Pulse Ox 94 08/10/23 08:25 Oxygen Delivery Method Room Air 08/10/23 08:25 BMI result Body Mass Index 34.1 Const General: cooperative Nutritional Appearance: obese Orientation/consciousness: patient oriented x3 Neck Neck: Yes full ROM and Yes supple Resp Effort & Inspection: normal respiratory effort and able to speak in complete sentences Neuro General: patient oriented x3 and gait normal Cranial nerves: Yes CN's II-XII intact bilaterally Cognition (Neuro): normal cognition Psych Appearance: grossly normal Mental Status: mental status grossly normal Speech and movement: Normal speech and movement present Affect: normal affect Attitude: cooperative Assessment & Plan Assessment & Plan (1) SRINATH (obstructive sleep apnea): Code(s): G47.33 - Obstructive sleep apnea (adult) (pediatric) (2) Daytime sleepiness: Code(s): R40.0 - Somnolence Plan Pt is advised to undergo home sleep study to assess for sleep apnea. Will f/u with pt after study to discuss results and appropriate treatment options. Wt reduction advised. Pt to call with any worsening concerns or questions. Orders: Orders RT home sleep study Today G47.33 - Obstructive sleep apnea (adult) (pediatric), R40.0 - Somnolence Coding Level of Care Code New Pt Level 3 (34996) Diagnoses SRINATH (obstructive sleep apnea) G47.33 Daytime sleepiness R40.0
[2023-08-10 08:25] VITALS: BP 120/70; PULSE 52; O2SAT 94; BMI 34.1
== END 2023-08-10 08:48 | disposition home or self-care (01) ==
PROVIDERS: PCP Nurse Practitioner Primary Care; Visit Provider Nurse Practitioner Family
DX: G47.33 Obstructive sleep apnea (adult) (pediatric) (principal); R40.0 Somnolence
CPT/HCPCS: 99203

== ENCOUNTER → 2023-08-10 08:01 | Outpatient (BNVA) | payer OTHER, SELFPAY | PROVIDERS: PCP Nurse Practitioner Primary Care; Visit Provider Nurse Practitioner Family | DX: G47.33 Obstructive sleep apnea (adult) (pediatric) (principal); R40.0 Somnolence | CPT/HCPCS: 99202 ==

== ENCOUNTER → 2023-09-26 08:52 | Outpatient (REF) | payer OTHER, SELFPAY | LOC: HO.SL 08:52 | PROVIDERS: PCP Nurse Practitioner Primary Care; Visit Provider Nurse Practitioner Family | DX: G47.33 Obstructive sleep apnea (adult) (pediatric) (principal); R40.0 Somnolence | CPT/HCPCS: 95806 ==

== ENCOUNTER → 2023-09-26 09:06 | Outpatient (BNV) | payer OTHER, SELFPAY | PROVIDERS: PCP Nurse Practitioner Primary Care; Visit Provider Psychiatry & Neurology Neurology | DX: G47.33 Obstructive sleep apnea (adult) (pediatric) (principal) | CPT/HCPCS: 95806 ==

== ENCOUNTER 2023-11-30 08:55 | Outpatient (AMB) | payer OTHER, SELFPAY ==
--- NOTE | 2023-11-30 09:03 | A.OFFVIS_ITS ---
Intake Visit Reasons: 4m/PVR/BPH/OAB Intake Note: Patient presents today for a follow-up on BPH/OAB & Bladder Scan (PVR) Meds- Alfuzosin & Vesicare Allergies to Antibiotic- Penicillin Blood Thinner- None Unable to void, PVR 222 mL, patient was able to void completely. Cloth Brushing And Sueding Supervisor Required: No Accompanied by: Self / Same As Patient Allergies aspirin Allergy (Unknown, Verified 11/30/23 09:21) SWELLING diphenhydramine [From Benadryl] Allergy (Unknown, Verified 11/30/23 09:21) RASH ibuprofen Allergy (Unknown, Verified 11/30/23 09:21) SWELLING indomethacin [From INDOCIN] Allergy (Unknown, Verified 11/30/23 09:21) UNKNWON NSAIDS (Non-Steroidal Anti-Inflamma Allergy (Unknown, Verified 11/30/23 09:21) RASH oxycodone Allergy (Unknown, Verified 11/30/23 09:21) SWELLING penicillin V Allergy (Unknown, Verified 11/30/23 09:21) Unknown Penicillins Allergy (Unknown, Verified 11/30/23 09:21) RASH tolmetin [TOLMETIN] Allergy (Unknown, Verified 11/30/23 09:21) UNKNOWN Codeine Phosphate Allergy (Unknown, Uncoded 11/30/23 09:21) Unknown Medication List - Last Reconciled 12/01/23 by Janet Segura MD acetaminophen 500 mg PO Q6H PRN albuterol 90 mcg/actuation mcg inhalation albuterol sulfate 2.5 mg inhalation Q4-6H PRN alfuzosin ER 10 mg PO DAILY amlodipine (Norvasc) 10 mg PO DAILY calcium carbonate (Calcium 500) 500 mg PO DAILY cholecalciferol (vitamin D3) 25 mcg PO DAILY clonazepam (Klonopin) 1 mg PO DAILY clopidogrel 75 mg PO DAILY 90 days cyclobenzaprine 10 mg PO TID diphenhydramine HCl (Benadryl) 25 mg PO BEDTIME PRN empagliflozin (Jardiance) 25 mg PO DAILY escitalopram oxalate 10 mg PO DAILY flunisolide 2 sprays intranasal BID losartan 100 mg PO DAILY metformin ER 500 mg PO DAILY montelukast 10 mg PO QPM pravastatin 20 mg PO BEDTIME ranitidine HCl mg PO risperidone (Risperdal) 1 mg PO BID HPI Comments Details: 12/01/23-- Talha is here for fu due to LUTS of urgency and he has been prescribed alfuzosin and VESIcare. He states that sometimes he has to push to feel like he is emptying his bladder. Initially he was not able to give a urine specimen bladder scan was 222 mL. The patient eventually provided urine to be evaluated. Leukocytes negative blood negative. I have discussed continue alfuzosin we will discontinue VESIcare. Review of chart: Talha presents for telehealth follow-up to review PSA results. He was initially evaluated on 06/20/2023 for lower urinary tract symptoms secondary to BPH. He was started on alfuzosin and VESIcare. He states urinary symptoms have improved. I reviewed PSA results-06/30/2023--0.65 ng/mL; renal ultrasound 07/27/2023--kidneys within normal limits, estimated prostate volume 49 mL. 06/20/2023-- Talha is a 67 year old male who is here for evaluation for LUTS of hesitency, and urgency. AUA symptom questionaire completed - score 18. The patient complains of daytime urinary frequency every 45 min - 1 hours, ocassional urge urinary incontinence, he does not currently wear a pad, nocturia every 2-3 hrs, denies hematuria, denies dysuria, history of nicotine use. I have discussed avoiding dietary bladder irritants, including to cut back on caffeine usage. UA - Leuks- neg, blood neg, glu - 3+. CoMorbidity- Diabetes Past Medical history SRINATH (obstructive sleep apnea) Osteopenia Tubular adenoma of colon History of hepatitis C GERD (gastroesophageal reflux disease) Hyperlipidemia Personal history of nicotine dependence Diabetes mellitus HTN (hypertension) Hypertensive heart disease CAD (coronary artery disease) I have reviewed chart, labs- [id number]--02/6/23--7.4, 03/25/23--BUn/creat --20/0.91 [facility] Medical History History of hepatitis C CAD (coronary artery disease) Hypertensive heart disease HTN (hypertension) Hyperlipidemia Diabetes mellitus SRINATH (obstructive sleep apnea) Osteopenia Tubular adenoma of colon GERD (gastroesophageal reflux disease) Personal history of nicotine dependence Surgical History History of hand surgery History of endoscopy History of hip surgery History of meniscectomy of right knee History of cardiac cath History of colonoscopy History of blepharoplasty Social History Patient Tobacco Use Status: Former Tobacco user Years Smoked: (former smoker, onset 15yo, 1ppd x 41yrs, 40pyh, quit ~2011) Current occupational status: disabled Current occupation: rt hand Review of Systems Const All systems reviewed & are unremarkable except as noted in HPI and below Reports no additional complaints Eyes Reports no additional complaints ENT Reports no additional complaints Card Reports no additional complaints Resp Reports no additional complaints GI Reports no additional complaints Reports as per HPI Musc Reports no additional complaints Skin/Breast Reports system reviewed and no additional complaints, except as documented Neuro Reports no additional complaints Psych Reports no additional complaints Endo Reports no additional complaints Dave/Lymph Reports no additional complaints Aller/Immun Reports no additional complaints Office Procedures Post Void Residual Post Residual Void Post Void Residual (PVR): [id number] Void Residual by ultrasound Results AMB Urinalysis, Automated UA Leukoctes 0 Mary Lou/uL Last Edit by ROBERTO Hmyan on 11/30/23 09:50 UA Nitrite Negative Last Edit by RBOERTO Hyman on 11/30/23 09:50 UA Urobilinogen 0.2 mg/dL Last Edit by ROBERTO Hyman on 11/30/23 09:5 0 UA Protein 0 mg/dL Last Edit by ROBERTO Hyman on 11/30/23 09:50 UA pH 5.0 Last Edit by ROBERTO Hyman on 11/30/23 09:50 UA Blood 0 Jovi/uL Last Edit by ROBERTO Hyman on 11/30/23 09:50 UA Specific [place] 1.010 Last Edit by ROBERTO Hyman on 11/30/23 09: 50 UA Ketone Negative Last Edit by ROBERTO Hyman on 11/30/23 09:50 UA Bilirubin 0 mg/dL Last Edit by ROBERTO Hyman on 11/30/23 09:50 UA Glucose 1000 mg/dL Last Edit by ROBERTO Hyman on 11/30/23 09:50 3+ Brennen Perez 11/30/23 09:50 Results Reviewed Results Reviewed: Laboratory Last Values Urine pH (Auto) 5.0 11/30/23 09:49 Specific [place] (Auto) 1.010 11/30/23 09:49 Urine Protein (Auto) 0 mg/dL 11/30/23 09:49 Glucose (UA)(Auto) 1000 mg/dL 11/30/23 09:49 Urine Ketones (Auto) Negative 11/30/23 09:49 Urine Blood (Auto) 0 Jovi/uL 11/30/23 09:49 Urine Nitrite (Auto) Negative 11/30/23 09:49 Urine Bilirubin (Auto) 0 mg/dL 11/30/23 09:49 Urine Urobilinogen (Auto) 0.2 mg/dL 11/30/23 09:49 Leukocyte Esterase (Auto) 0 Mary Lou/uL 11/30/23 09:49 Date of Service: 07/27/23 EXAMINATION: US RETROPERITONEAL COMPLETE (RENAL) CLINICAL INFORMATION: Urgency of urination. COMPARISON: None available. TECHNIQUE: Real-time imaging of the kidneys and bladder. FINDINGS: RIGHT KIDNEY: 12.7 x 5.3 x 5.8 cm (SAG x AP x TRV). The kidney is normal in size, contour, and echogenicity. Renal cortical thickness is normal. No calculi or focal parenchymal lesions. No hydronephrosis. LEFT KIDNEY: 13.0 x 6.2 x 5.6 cm (SAG x AP x TRV). The kidney is normal in size, contour, and echogenicity. Renal cortical thickness is normal. No calculi or focal parenchymal lesions. No hydronephrosis. BLADDER: Well distended and normal. Bilateral ureteral jets are demonstrated. Prevoid bladder volume is 129.5 mL. Postvoid bladder volume is 31.8 mL. ADDITIONAL FINDINGS: The prostate measures 49 mL IMPRESSION: Enlarged prostate measuring 49 mL. Small post void bladder residual volume of 32 mL. No hydronephrosis.. Assessment & Plan Assessment & Plan (1) Urinary urgency: Code(s): R39.15 - Urgency of urination Category: Medical (2) Weak urinary stream: Code(s): R39.12 - Poor urinary stream Category: Medical (3) Diabetes mellitus: Comment: (T2DM, with neuropathy) Code(s): E11.9 - Type 2 diabetes mellitus without complications Category: Medical (4) Personal history of nicotine dependence: Comment: (former smoker, onset 15yo, 1ppd x 41yrs, 40pyh, quit ~2011) Code(s): Z87.891 - Personal history of nicotine dependence Category: Medical (5) BPH loc w urin obs/LUTS: Code(s): N40.1 - Benign prostatic hyperplasia with lower urinary tract symptoms Category: Medical Plan Continue alfluzosin, d/c vesicare Orders: Orders AMB Post Void Residual by ultrasound 11/30/23 N39.8 - Other specified disorders of urinary system AMB Urinalysis Automated 11/30/23 Z13.9 - Encounter for screening, unspecified Medications: Discontinued solifenacin (Vesicare) Discontinued Reason: Doctor's Order 10 mg PO BEDTIME 30 tabs 2RF Patient Instructions: The patient had an opportunity to ask questions regarding treatment plan. The patient expressed understanding and agreement with the above treatment plan. The patient is aware they should contact our office by phone for worsening of their current condition or the appearance of new symptoms. Compliance is encouraged with any medications and followup testing that is ordered. It is a privilege to be allowed the opportunity to participate in the urologic care of your patient. If you have any questions or concerns regarding treatment for the above conditions please do not hesitate to contact me. The office telephone contact is [phone]. This note is constructed in part using voice recognition software. While every effort has been made to ensure accuracy mainframe analyst errors may have been included. Yours sincerely, Janet Segura MD Coding Level of Care Code Est Pt Level 4 (18569) Complex EM visit Add On G2211 Diagnoses Urinary urgency R39.15 Weak urinary stream R39.12 Diabetes mellitus E11.9 Personal history of nicotine dependence Z87.891 BPH loc w urin obs/LUTS N40.1 CPT Codes Post Residual Void - PVR CPT Code: 15956-Xght Void Residual by ultrasound ([id number])
== END 2023-11-30 09:51 | disposition home or self-care (01) ==
PROVIDERS: PCP Nurse Practitioner Primary Care; Visit Provider Urology
DX: R39.15 Urgency of urination (principal); R39.12 Poor urinary stream; E11.9 Type 2 diabetes mellitus without complications; Z87.891 Personal history of nicotine dependence; N40.1 Benign prostatic hyperplasia with lower urinary tract symptoms
CPT/HCPCS: 99214; G2211

== ENCOUNTER → 2023-11-30 08:55 | Outpatient (BNVA) | payer OTHER, SELFPAY | PROVIDERS: PCP Nurse Practitioner Primary Care; Visit Provider Urology | DX: N40.1 Benign prostatic hyperplasia with lower urinary tract symptoms (principal); R39.15 Urgency of urination; R39.12 Poor urinary stream; E11.9 Type 2 diabetes mellitus without complications; Z87.891 Personal history of nicotine dependence | CPT/HCPCS: 51798; 81003; 99212 ==

== ENCOUNTER 2023-12-12 08:20 | Outpatient (AMB) | payer OTHER, SELFPAY ==
--- NOTE | 2023-12-12 08:20 | A.OFFVIS_ITS ---
Intake Visit Reasons: 4 mo f/u-CONF Intake Note: Patient following up on sleep study results Allergies aspirin Allergy (Unknown, Verified 12/12/23 08:21) SWELLING diphenhydramine [From Benadryl] Allergy (Unknown, Verified 12/12/23 08:21) RASH ibuprofen Allergy (Unknown, Verified 12/12/23 08:21) SWELLING indomethacin [From INDOCIN] Allergy (Unknown, Verified 12/12/23 08:21) UNKNWON NSAIDS (Non-Steroidal Anti-Inflamma Allergy (Unknown, Verified 12/12/23 08:21) RASH oxycodone Allergy (Unknown, Verified 12/12/23 08:21) SWELLING penicillin V Allergy (Unknown, Verified 12/12/23 08:21) Unknown Penicillins Allergy (Unknown, Verified 12/12/23 08:21) RASH tolmetin [TOLMETIN] Allergy (Unknown, Verified 12/12/23 08:21) UNKNOWN Codeine Phosphate Allergy (Unknown, Uncoded 12/12/23 08:21) Unknown HPI Comments Details: 68-yr-old male presents for follow-up televideo visit for f/u of HST results via telephone Doximity. Pt is accompanied by his dtr. Since the last visit, pt underwent HST, which revealed: mild SRINATH w/ AHI 12/hr and O2 jose angel 74%. Since, pt has started on APAP 5-20 cmH2O. Pt states he is using this nightl;y w/o difficulty. He feels he is sleeping better and feels better during the day. He is cleaning his machine and supplies routinely. [facility] Medical History History of hepatitis C CAD (coronary artery disease) Hypertensive heart disease HTN (hypertension) Hyperlipidemia Diabetes mellitus SRINATH (obstructive sleep apnea) Osteopenia Tubular adenoma of colon GERD (gastroesophageal reflux disease) Personal history of nicotine dependence Surgical History History of hand surgery History of endoscopy History of hip surgery History of meniscectomy of right knee History of cardiac cath History of colonoscopy History of blepharoplasty Social History Patient Tobacco Use Status: Former Tobacco user Years Smoked: (former smoker, onset 15yo, 1ppd x 41yrs, 40pyh, quit ~2011) Current occupational status: disabled Current occupation: rt hand Review of Systems Const All systems reviewed & are unremarkable except as noted in HPI and below Physical Exam Const General: no acute distress Orientation/consciousness: patient oriented x3 Neuro General: patient oriented x3 Psych Mental Status: mental status grossly normal Speech and movement: Clear speech present Attitude: cooperative Telehealth Telehealth Telehealth Platform: Epuls Location of provider rendering services: practice address Location of patient: address on file Patient Identification confirmed using: Name, : Yes Telehealth method: video Patient verbally consented to treatment: Yes Patient verbally consented to billing insurance company: Yes Patient informed of any privacy concerns related to visit: Yes Minutes spent on Phone/Video with Pt.: 6 Results Reviewed Results Reviewed: HST report- see HPI. Assessment & Plan Assessment & Plan (1) Mild obstructive sleep apnea: Comment: 10/02/23: HST AHI 12/hr w/ O2 jose angel 74% Code(s): G47.33 - Obstructive sleep apnea (adult) (pediatric) Category: Medical Plan Continue APAP 5-20 cmH2O, as pt is having good clinical effect from use. Clean and change PAP supplies routinely. Pt to notify us or respiratory company w/ any issues or concerns r/t his PAP machine/use. follow-up in 6-12 months or sooner prn. Coding Level of Care Code Tele Est Pt Level 3 (63977) Diagnoses Mild obstructive sleep apnea G47.33
== END 2023-12-12 09:13 | disposition home or self-care (01) ==
LOC: HO.HSMS 08:20
PROVIDERS: PCP Nurse Practitioner Primary Care; Visit Provider Nurse Practitioner Family
DX: G47.33 Obstructive sleep apnea (adult) (pediatric) (principal)
CPT/HCPCS: 99213

== ENCOUNTER → 2023-12-12 08:20 | Outpatient (BNVA) | payer OTHER, SELFPAY | PROVIDERS: PCP Nurse Practitioner Primary Care; Visit Provider Nurse Practitioner Family ==

== ENCOUNTER 2023-12-28 08:56 | Outpatient (AMB) | payer OTHER, SELFPAY ==
--- NOTE | 2023-12-28 08:56 | MHC.OFFVIS ---
Intake Visit Reasons: follow up Intake Note: Patient is Present for Follow Up Urology Medication: Alfuzosin Antibiotic Allergies:Penicillin Blood Thinners:Clopidogrel Last PVR: 222ML Today PVR: 73ml Allergies aspirin Allergy (Unknown, Verified 12/12/23 08:21) SWELLING diphenhydramine [From Benadryl] Allergy (Unknown, Verified 12/12/23 08:21) RASH ibuprofen Allergy (Unknown, Verified 12/12/23 08:21) SWELLING indomethacin [From INDOCIN] Allergy (Unknown, Verified 12/12/23 08:21) UNKNWON NSAIDS (Non-Steroidal Anti-Inflamma Allergy (Unknown, Verified 12/12/23 08:21) RASH oxycodone Allergy (Unknown, Verified 12/12/23 08:21) SWELLING penicillin V Allergy (Unknown, Verified 12/12/23 08:21) Unknown Penicillins Allergy (Unknown, Verified 12/12/23 08:21) RASH tolmetin [TOLMETIN] Allergy (Unknown, Verified 12/12/23 08:21) UNKNOWN Codeine Phosphate Allergy (Unknown, Uncoded 12/12/23 08:21) Unknown HPI Comments Details: 01/15 - Developed balanitis with foreskin scarring after being on Jardiance. Likely due to subclinical fungal infection Prescribed clotrimazole +betamethasone cream Recommendation to cease Jardiance Four week follow-up Dr. Lopez 12/01/23-- Talha is here for fu due to LUTS of urgency and he has been prescribed alfuzosin and VESIcare. He states that sometimes he has to push to feel like he is emptying his bladder. Initially he was not able to give a urine specimen bladder scan was 222 mL. The patient eventually provided urine to be evaluated. Leukocytes negative blood negative. I have discussed continue alfuzosin we will discontinue VESIcare. Review of chart: Talha presents for telehealth follow-up to review PSA results. He was initially evaluated on 06/20/2023 for lower urinary tract symptoms secondary to BPH. He was started on alfuzosin and VESIcare. He states urinary symptoms have improved. I reviewed PSA results-06/30/2023--0.65 ng/mL; renal ultrasound 07/27/2023--kidneys within normal limits, estimated prostate volume 49 mL. 06/20/2023-- Talha is a 67 year old male who is here for evaluation for LUTS of hesitency, and urgency. AUA symptom questionaire completed - score 18. The patient complains of daytime urinary frequency every 45 min - 1 hours, ocassional urge urinary incontinence, he does not currently wear a pad, nocturia every 2-3 hrs, denies hematuria, denies dysuria, history of nicotine use. I have discussed avoiding dietary bladder irritants, including to cut back on caffeine usage. UA - Leuks- neg, blood neg, glu - 3+. CoMorbidity- Diabetes Past Medical history SRINATH (obstructive sleep apnea) Osteopenia Tubular adenoma of colon History of hepatitis C GERD (gastroesophageal reflux disease) Hyperlipidemia Personal history of nicotine dependence Diabetes mellitus HTN (hypertension) Hypertensive heart disease CAD (coronary artery disease) I have reviewed chart, labs- ReU9l--28/6/23--7.4, 03/25/23--BUn/creat --20/0.91 PFSH Medical History History of hepatitis C CAD (coronary artery disease) Hypertensive heart disease HTN (hypertension) Hyperlipidemia Diabetes mellitus SRINATH (obstructive sleep apnea) Osteopenia Tubular adenoma of colon GERD (gastroesophageal reflux disease) Personal history of nicotine dependence Surgical History History of hand surgery History of endoscopy History of hip surgery History of meniscectomy of right knee History of cardiac cath History of colonoscopy History of blepharoplasty Social History Patient Tobacco Use Status: Former Tobacco user Years Smoked: (former smoker, onset 15yo, 1ppd x 41yrs, 40pyh, quit ~2011) Current occupational status: disabled Current occupation: rt hand Review of Systems Const Denies chills and Denies fever(s) Card Reports no additional complaints and Denies syncope Resp Denies cough GI Denies abdominal pain and Denies heartburn Reports as per HPI and Denies change in libido Neuro Denies syncope Psych Denies change in libido Endo Denies change in libido Physical Exam Const General: cooperative, healthy appearing, comfortable and no acute distress Orientation/consciousness: patient oriented x3 HEENT Face and sinus: Yes normal facial exam Mouth: moist mucous membranes Neck Neck: Yes normal visual inspection, Yes full ROM and Yes trachea midline Chest Chest palpation & inspection: normal inspection of the chest Resp Effort & Inspection: normal respiratory effort, able to speak in complete sentences and no respiratory distress GI Inspection: Yes normal to inspection Back/Spine/Pelvis Cervical Spine: normal cervical lordosis Thoracic/Lumbar Spine: thoracic and lumbar spine normal to inspection Skin General skin exam: no rashes or lesions noted Neuro General: patient oriented x3, gait normal, tone normal and moves all extremities Extrem General: Yes normal to inspection and Yes capillary refill normal Office Procedures Post Void Residual Post Residual Void Post Void Residual (PVR): [id number] Void Residual by ultrasound Results AMB Urinalysis, Automated UA Leukoctes 0 Mary Lou/uL Last Edit by Gayle Steinberg Braden on 12/28/23 09:17 UA Nitrite Negative Last Edit by Gayle Steinberg A on 12/28/23 09:17 UA Urobilinogen 0.2 mg/dL Last Edit by Gayle Steinberg Braden on 12/28/23 09:17 UA Protein 15 mg/dL Last Edit by [facility]le [facility] on 12/28/23 09:17 UA pH 5.0 Last Edit by Gayle Steinberg [facility] on 12/28/23 09:17 UA Blood 0 Jovi/uL Last Edit by Gayle Steinberg [facility] on 12/28/23 09:17 UA Specific [place] 1.015 Last Edit by Gayle Steinbreg A on 12/28/23 09:17 UA Ketone Negative Last Edit by Gayle Steinberg Braden on 12/28/23 09:17 UA Bilirubin 0 mg/dL Last Edit by Gayle Steinberg A on 12/28/23 09:17 UA Glucose 0 mg/dL Last Edit by Gayle Steinberg [facility] on 12/28/23 09:17 Results Reviewed Results Reviewed: Laboratory Last Values Urine pH (Auto) 5.0 12/28/23 09:16 Specific [place] (Auto) 1.015 12/28/23 09:16 Urine Protein (Auto) 15 mg/dL 12/28/23 09:16 Glucose (UA)(Auto) 0 mg/dL 12/28/23 09:16 Urine Ketones (Auto) Negative 12/28/23 09:16 Urine Blood (Auto) 0 Jovi/uL 12/28/23 09:16 Urine Nitrite (Auto) Negative 12/28/23 09:16 Urine Bilirubin (Auto) 0 mg/dL 12/28/23 09:16 Urine Urobilinogen (Auto) 0.2 mg/dL 12/28/23 09:16 Leukocyte Esterase (Auto) 0 Mary Lou/uL 12/28/23 09:16 Assessment & Plan Assessment & Plan (1) Balanitis: Code(s): N48.1 - Balanitis Category: Medical Plan Antifungal cream prescribed Four week follow-up Dr. Lopez Orders: Orders AMB Post Void Residual by ultrasound Today N40.1 - Benign prostatic hyperplasia with lower urinary tract symptoms AMB Urinalysis Automated Today Z13.9 - Encounter for screening, unspecified Medications: New clotrimazole-betamethasone 1-0.05 % Apply thin coat 2 times per day 1 appl topical BID 45 grams 0RF 4 weeks N48.1 - Balanitis Patient Instructions: Imaging studies, laboratory and physical exam results were discussed and reviewed in detail. No major barriers to patient understanding were identified. An opportunity to ask questions regarding the treatment plan was provided. All questions were answered. The patient expressed understanding and agreement with the above treatment plan. The patient is aware they should contact our office by phone for worsening of their current condition or the appearance of new urologic symptoms. Compliance is encouraged with any medications and followup testing that is ordered. It is a privilege to participate in the urologic care of your patient. If you have any questions or concerns regarding treatment for the above conditions, or other urologic issues, please do not hesitate to contact me. The office telephone contact is [phone]. This note is constructed using voice recognition software. While every effort has been made to ensure accuracy rn acute dialysis errors may have been included. Yours sincerely, Dr Kamron Talamantes MD, [facility] - Urology Providers of Expert, Compassionate Care for the Genitourinary System Coding Level of Care Code Est Pt Level 4 (97924) Diagnoses Balanitis N48.1 CPT Codes Post Residual Void - PVR CPT Code: 03568-Mgnt Void Residual by ultrasound ([id number])
== END 2023-12-28 09:44 | disposition home or self-care (01) ==
LOC: HO.HUSH 08:56
PROVIDERS: PCP Nurse Practitioner Primary Care; Visit Provider Urology
DX: N48.1 Balanitis (principal); Z13.9 Encounter for screening, unspecified
CPT/HCPCS: 99213

== ENCOUNTER → 2023-12-28 08:56 | Outpatient (BNVA) | payer OTHER, SELFPAY | PROVIDERS: PCP Nurse Practitioner Primary Care; Visit Provider Urology | DX: N48.1 Balanitis (principal); N40.0 Benign prostatic hyperplasia without lower urinary tract symptoms | CPT/HCPCS: 51798; 81003; 99212 ==

== ENCOUNTER 2024-01-28 08:41 | Outpatient (REF) | payer OTHER, SELFPAY ==
--- NOTE | ~2024-01-28 | US_ITS ---
EXAMINATION: US RETROPERITONEAL LIMITED (AORTA) CLINICAL INFORMATION: Aorta close to upper limits of normal on AAA screening July 2022. COMPARISON: US retroperitoneal limited (aorta) 08/11/2022. TECHNIQUE: Riggs-scale, color Doppler and spectral Doppler evaluation of the abdominal aorta. FINDINGS: The aorta is normal. The measurements of the aorta in maximum AP and transverse dimensions respectively are as follows: Proximal: 2.7 x 2.4 cm. Mid: 2.2 x 2.3 cm. Distal: 2.3 x 2.0 cm. PSV: 100 cm/s. The measurements of the common iliac arteries in maximum AP and TRV dimensions are as follows: Right Common Iliac Artery: 1.0 x 1.2 cm. Left Common Iliac Artery: 1.3 x 1.5 cm. US/US abdominal aortic aneurysm IMPRESSION: No abdominal aortic aneurysm.
== END 2024-01-28 08:42 | disposition home or self-care (01) ==
LOC: HO.US 08:41
PROVIDERS: PCP Nurse Practitioner Primary Care; Visit Provider Nurse Practitioner Primary Care
DX: Z13.6 Encounter for screening for cardiovascular disorders (principal); Z87.891 Personal history of nicotine dependence
CPT/HCPCS: 76706

== ENCOUNTER 2024-02-22 08:31 | Outpatient (AMB) | payer OTHER, SELFPAY ==
--- NOTE | 2024-02-22 08:56 | A.OFFVIS_ITS ---
Intake Visit Reasons: 1m follow up/PVR Intake Note: Patient is present for 1M F/U PVR Urology Medication:ALFUZOSIN, CLOTRIMAZOLE Antibiotic Allergy:PENICILLIN, TOLMETIN Blood Thinner:NONE TODAY'S PVR: [facility] Required: No Allergies aspirin Allergy (Unknown, Verified 02/22/24 08:59) SWELLING diphenhydramine [From Benadryl] Allergy (Unknown, Verified 02/22/24 08:59) RASH ibuprofen Allergy (Unknown, Verified 02/22/24 08:59) SWELLING indomethacin [From INDOCIN] Allergy (Unknown, Verified 02/22/24 08:59) UNKNWON NSAIDS (Non-Steroidal Anti-Inflamma Allergy (Unknown, Verified 02/22/24 08:59) RASH oxycodone Allergy (Unknown, Verified 02/22/24 08:59) SWELLING penicillin V Allergy (Unknown, Verified 02/22/24 08:59) Unknown Penicillins Allergy (Unknown, Verified 02/22/24 08:59) RASH tolmetin [TOLMETIN] Allergy (Unknown, Verified 02/22/24 08:59) UNKNOWN Codeine Phosphate Allergy (Unknown, Uncoded 02/22/24 08:59) Unknown HPI Comments Details: Talha is a pleasant male. He is a patient of Dr. Almonte. He is seen for the following urologic conditions - balanitis - diabetic - lower urinary tract symptoms Here for review of balanitis Improved after ceasing Jardiance Urination is staying improved with alfuzosin Six-month follow-up Balanitis Treated with topical therapy Lower urinary tract symptoms Current therapy alfuzosin Initial evaluation 06/16 Primary presentation with urgency, hesitancy - AUA score 18 Reported daytime frequency every hour, nocturia 2-3 times Initial therapy included alfuzosin with VESIcare [facility] Medical History History of hepatitis C CAD (coronary artery disease) Hypertensive heart disease HTN (hypertension) Hyperlipidemia Diabetes mellitus SRINATH (obstructive sleep apnea) Osteopenia Tubular adenoma of colon GERD (gastroesophageal reflux disease) Personal history of nicotine dependence Surgical History History of hand surgery History of endoscopy History of hip surgery History of meniscectomy of right knee History of cardiac cath History of colonoscopy History of blepharoplasty Social History Patient Tobacco Use Status: Former Tobacco user Years Smoked: (former smoker, onset 15yo, 1ppd x 42yrs, 40pyh, quit ~2011) Current occupational status: disabled Current occupation: rt hand Review of Systems Const Denies chills and Denies fever(s) Card Reports no additional complaints and Denies syncope Resp Denies cough GI Denies abdominal pain and Denies heartburn Reports as per HPI and Denies change in libido Neuro Denies syncope Psych Denies change in libido Endo Denies change in libido Physical Exam Const General: cooperative, healthy appearing, comfortable and no acute distress Orientation/consciousness: patient oriented x3 HEENT Face and sinus: Yes normal facial exam Mouth: moist mucous membranes Neck Neck: Yes normal visual inspection, Yes full ROM and Yes trachea midline Chest Chest palpation & inspection: normal inspection of the chest Resp Effort & Inspection: normal respiratory effort, able to speak in complete sentences and no respiratory distress GI Inspection: Yes normal to inspection Back/Spine/Pelvis Cervical Spine: normal cervical lordosis Thoracic/Lumbar Spine: thoracic and lumbar spine normal to inspection Skin General skin exam: no rashes or lesions noted Neuro General: patient oriented x3, gait normal, tone normal and moves all extremities Extrem General: Yes normal to inspection and Yes capillary refill normal Results AMB Urinalysis, Automated UA Leukoctes 0 Mary Lou/uL Last Edit by SALTY Mcnally on 02/22/24 09:14 UA Nitrite Negative Last Edit by SALTY Mcnally on 02/22/24 09:14 UA Urobilinogen 0.2 mg/dL Last Edit by SALTY Mcnally on 02/22/24 09:1 4 UA Protein 15 mg/dL Last Edit by SALTY Mcnally on 02/22/24 09:14 UA pH 6.0 Last Edit by SALTY Mcnally on 02/22/24 09:14 UA Blood 0 Jovi/uL Last Edit by SALTY Mcnally on 02/22/24 09:14 UA Specific [place] 1.025 Last Edit by SALTY Mcnally on 02/22/24 09: 14 UA Ketone Negative Last Edit by SALTY Mcnally on 02/22/24 09:14 UA Bilirubin 0 mg/dL Last Edit by SALTY Mcnally on 02/22/24 09:14 UA Glucose 100 mg/dL Last Edit by SALTY Mcnally on 02/22/24 09:14 Results Reviewed Results Reviewed: Laboratory Last Values Urine pH (Auto) 6.0 02/22/24 09:14 Specific [place] (Auto) 1.025 02/22/24 09:14 Urine Protein (Auto) 15 mg/dL 02/22/24 09:14 Glucose (UA)(Auto) 100 mg/dL 02/22/24 09:14 Urine Ketones (Auto) Negative 02/22/24 09:14 Urine Blood (Auto) 0 Jovi/uL 02/22/24 09:14 Urine Nitrite (Auto) Negative 02/22/24 09:14 Urine Bilirubin (Auto) 0 mg/dL 02/22/24 09:14 Urine Urobilinogen (Auto) 0.2 mg/dL 02/22/24 09:14 Leukocyte Esterase (Auto) 0 Mary Lou/uL 02/22/24 09:14 Assessment & Plan Assessment & Plan (1) Balanitis: Code(s): N48.1 - Balanitis Category: Medical (2) BPH loc w urin obs/LUTS: Code(s): N40.1 - Benign prostatic hyperplasia with lower urinary tract symptoms Category: Medical Plan Six-month follow-up office PVR Orders: Orders AMB Urinalysis Automated Today Z13.9 - Encounter for screening, unspecified Medications: Changed From alfuzosin ER administer after the same meal each day 10 mg PO DAILY 60 tabs 2RF N40.1 - Benign prostatic hyperplasia with lower urinary tract symptoms To alfuzosin ER administer after the same meal each day 10 mg PO DAILY 90 days 90 tabs 1RF N40.1 - Benign prostatic hyperplasia with lower urinary tract symptoms Patient Instructions: Imaging studies, laboratory and physical exam results were discussed and reviewed in detail. No major barriers to patient understanding were identified. An opportunity to ask questions regarding the treatment plan was provided. All questions were answered. The patient expressed understanding and agreement with the above treatment plan. The patient is aware they should contact our office by phone for worsening of their current condition or the appearance of new urologic symptoms. Compliance i s encouraged with any medications and followup testing that is ordered. It is a privilege to participate in the urologic care of your patient. If you have any questions or concerns regarding treatment for the above conditions, or other urologic issues, please do not hesitate to contact me. The office telephone contact is [phone]. This note is constructed using voice recognition software. While every effort has been made to ensure accuracy arc trimmer errors may have been included. Yours sincerely, Dr Kamron Talamantes MD, [facility] - Urology Providers of Expert, Compassionate Care for the Genitourinary System Coding Level of Care Code Est Pt Level 3 (09297) Diagnoses Balanitis N48.1 BPH loc w urin obs/LUTS N40.1
== END 2024-02-22 09:33 | disposition home or self-care (01) ==
PROVIDERS: PCP Nurse Practitioner Primary Care; Visit Provider Urology
DX: N48.1 Balanitis (principal); N40.1 Benign prostatic hyperplasia with lower urinary tract symptoms; Z13.9 Encounter for screening, unspecified
CPT/HCPCS: 99213

== ENCOUNTER → 2024-02-22 08:31 | Outpatient (BNVA) | payer OTHER, SELFPAY | PROVIDERS: PCP Nurse Practitioner Primary Care; Visit Provider Urology | DX: N48.1 Balanitis (principal); N40.1 Benign prostatic hyperplasia with lower urinary tract symptoms; N13.8 Other obstructive and reflux uropathy | CPT/HCPCS: 81003; 99212 ==

== ENCOUNTER 2024-04-05 07:18 | Outpatient (REF) | payer OTHER, SELFPAY ==
[2024-04-05 08:19] LABS: Cholesterol 140 mg/dL (<200); HDL Cholesterol 46 mg/dL (>40); LDL Cholesterol Calculated 63 mg/dL (<100); Triglycerides 157 mg/dL (<150)
[2024-04-05 09:05] LABS: Estimated Average Glucose 169 mg/dL; Hemoglobin A1C 211.6715 umol/L; Hemoglobin A1c % 7.5 % (<6.0); Total Hemoglobin (HGBA1C) 3599.8373 umol/L
== END 2024-04-05 07:19 | disposition home or self-care (01) ==
LOC: HO.LAB 07:18
PROVIDERS: PCP Nurse Practitioner Primary Care; Visit Provider Registered Nurse
DX: Z79.899 Other long term (current) drug therapy (principal)
CPT/HCPCS: 36415; 80061; 83036

== ENCOUNTER 2024-04-29 08:06 | Day surgery (SDC) | payer OTHER, SELFPAY ==
[2024-04-25 10:00] VITALS: BMI 34.2
--- NOTE | 2024-04-28 11:04 | P.CONAN_ITS ---
Documented by User: Heather Cesar NP 04/28/24 11:06 HPI - Anesthesia Eval Consult details Narrative: 68yo M for Colonoscopy Multiple Med Allergies Follows [facility] [place] Cardiology for CAD (plavix d/t asa allergy). No office visit >1 year, but ok to proceed per workload message. [facility] Active Problems Active Problems: All Active Problems Balanitis (Acute) Mild obstructive sleep apnea (Acute) Daytime sleepiness (Acute) BPH loc w urin obs/LUTS (Acute) Weak urinary stream (Acute) Urinary urgency (Acute) Iliotibial band syndrome affecting right lower leg (Acute) Trochanteric bursitis of right hip (Acute) Aortic ectasia, abdominal (Acute) Tendonitis of left rotator cuff (Acute) CAD (coronary artery disease) (Acute) Hypertensive heart disease (Acute) Hyperlipidemia (Acute) Diabetes mellitus (Acute) SRINATH (obstructive sleep apnea) (Acute) GERD (gastroesophageal reflux disease) (Acute) Tubular adenoma of colon (Acute) Personal history of nicotine dependence (Acute) Osteopenia (Acute) Past Medical History Medical History (Updated 04/25/24 @ 09:26 by Penny Gomez RN) Asthma SRINATH (obstructive sleep apnea) Osteopenia Tubular adenoma of colon History of hepatitis C GERD (gastroesophageal reflux disease) Hyperlipidemia Personal history of nicotine dependence Diabetes mellitus HTN (hypertension) Hypertensive heart disease CAD (coronary artery disease) Surgical History Surgical History History of hand surgery History of endoscopy History of hip surgery History of meniscectomy of right knee History of cardiac cath History of colonoscopy History of blepharoplasty Social History Social History Patient Tobacco Use Status: Former Tobacco user Years Smoked: (former smoker, onset 15yo, 1ppd x 41yrs, 40pyh, quit ~2011) Use of substances other than those prescribed or required for medical reasons: No Are you DNR?: No Advance Directives: No Advance Directives Information Provided: Yes Current occupational status: disabled Current occupation: rt hand Meds Allergies Allergy/AdvReac Type Severity Reaction Status Date / Time aspirin Allergy Unknown SWELLING Verified 04/29/24 08:56 diphenhydramine Allergy Unknown RASH Verified 04/29/24 08:56 [From Benadryl] ibuprofen Allergy Unknown SWELLING Verified 04/29/24 08:56 indomethacin [From INDOCIN] Allergy Unknown UNKNWON Verified 04/29/24 08:56 NSAIDS (Non-Steroidal Allergy Unknown RASH Verified 04/29/24 08:56 Anti-Inflamma oxycodone Allergy Unknown SWELLING Verified 04/29/24 08:56 penicillin V Allergy Unknown Unknown Verified 04/29/24 08:56 Penicillins Allergy Unknown RASH Verified 04/29/24 08:56 tolmetin [TOLMETIN] Allergy Unknown UNKNOWN Verified 04/29/24 08:56 amitriptyline [From Elavil] Allergy Unknown Verified 04/29/24 08:56 diclofenac Allergy Unknown Verified 04/29/24 08:56 fenoprofen Allergy Unknown Verified 04/29/24 08:56 halofantrine [From Halfan] Allergy Unknown Verified 04/29/24 08:56 ketoprofen Allergy Unknown Verified 04/29/24 08:56 meclofenamic acid Allergy Unknown Verified 04/29/24 08:56 [meclofenamate sodium] mefenamic acid [From Ponstel] Allergy Unknown Verified 04/29/24 08:56 metformin Allergy Unknown Verified 04/29/24 08:56 morphine Allergy Unknown Verified 04/29/24 08:56 naproxen Allergy Unknown Verified 04/29/24 08:56 phenylbutazone Allergy Unknown Verified 04/29/24 08:56 piroxicam [From Feldene] Allergy Unknown Verified 04/29/24 08:56 sulindac Allergy Unknown Verified 04/29/24 08:56 Codeine Phosphate Allergy Unknown Unknown Uncoded 04/29/24 08:56 Home Medications ?Medication ?Instructions ?Recorded ?Confirmed ?Last Taken ?Type acetaminophen 500 mg capsule 500 mg PO Q8-10H PRN Pain 12/17/20 04/29/24 Unknown History albuterol sulfate 2.5 mg/3 mL 2.5 mg inhalation Q4-6H PRN 12/17/20 04/29/24 Unknown History (0.083 %) solution for nebulization Shortness Of Breath Or Wheezing amlodipine 10 mg tablet (Norvasc) 10 mg PO DAILY 12/17/20 04/29/24 Unknown History calcium carbonate (Calcium 500) 500 mg PO DAILY 12/17/20 04/29/24 Unknown History cholecalciferol (vitamin D3) 25 25 mcg PO DAILY 12/17/20 04/29/24 Unknown History mcg (1,000 unit) capsule clonazepam 1 mg tablet (Klonopin) 1 mg PO DAILY 12/17/20 04/29/24 04/29/24 History escitalopram oxalate 10 mg tablet 10 mg PO DAILY 12/17/20 04/29/24 Unknown History losartan 100 mg tablet 100 mg PO DAILY 12/17/20 04/29/24 Unknown History metformin 500 mg tablet,extended 500 mg PO DAILY 12/17/20 04/29/24 Unknown Histo ry release 24 hr montelukast 10 mg tablet 10 mg PO QPM 12/17/20 04/29/24 Unknown History pravastatin 20 mg tablet 20 mg PO BEDTIME 12/17/20 04/29/24 Unknown History diphenhydramine HCl 25 mg capsule 25 mg PO BEDTIME PRN Insomnia 06/20/23 04/29/24 Unknown History (Benadryl) albuterol sulfate 90 mcg/actuation 2 puff inhalation Q4-6H PRN 04/25/24 04/29/24 Unknown History aerosol inhaler Shortness Of Breath Or Wheezing budesonide 32 mcg/actuation nasal 2 spray intranasal DAILY 04/25/24 04/29/24 Unknown History spray clonazepam 1 mg tablet (Klonopin) 1 mg PO TID 04/25/24 04/29/24 Unknown History diphenhydramine HCl 12.5 mg/5 mL 25 mg PO TID 04/25/24 04/29/24 Unknown History oral elixir famotidine 20 mg tablet 20 mg PO DAILY 04/25/24 04/29/24 Unknown History ranitidine HCl 150 mg capsule 150 mg PO DAILY 04/25/24 04/29/24 Unknown History risperidone 1 mg tablet (Risperdal) 1 mg PO DAILY 04/25/24 04/29/24 Unknown History Exam Height,Weight and Vital Signs: Height 5 ft 6 in Weight 96.162 kg Assessment and Plan Assessment Anesthesia Assessment: Chart Reviewed Documented by User: Rea Conrad MD 04/29/24 09:43 [facility] Past Medical History Medical History (Updated 04/25/24 @ 09:26 by Penny Gomez RN) Asthma SRINATH (obstructive sleep apnea) Osteopenia Tubular adenoma of colon History of hepatitis C GERD (gastroesophageal reflux disease) Hyperlipidemia Personal history of nicotine dependence Diabetes mellitus HTN (hypertension) Hypertensive heart disease CAD (coronary artery disease) Family History Family history of problems with anesthesia: No Surgical History Surgical History History of hand surgery History of endoscopy History of hip surgery History of meniscectomy of right knee History of cardiac cath History of colonoscopy History of blepharoplasty History of Problems with Anesthesia: No Social History Social History Patient Tobacco Use Status: Former Tobacco user Years Smoked: (former smoker, onset 15yo, 1ppd x 41yrs, 40pyh, quit ~2011) Use of substances other than those prescribed or required for medical reasons: No Are you DNR?: No Advance Directives: No Advance Directives Information Provided: Yes Current occupational status: disabled Current occupation: rt hand Meds Allergies Allergy/AdvReac Type Severity Reaction Status Date / Time aspirin Allergy Unknown SWELLING Verified 04/29/24 08:56 diphenhydramine Allergy Unknown RASH Verified 04/29/24 08:56 [From Benadryl] ibuprofen Allergy Unknown SWELLING Verified 04/29/24 08:56 indomethacin [From INDOCIN] Allergy Unknown UNKNWON Verified 04/29/24 08:56 NSAIDS (Non-Steroidal Allergy Unknown RASH Verified 04/29/24 08:56 Anti-Inflamma oxycodone Allergy Unknown SWELLING Verified 04/29/24 08:56 penicillin V Allergy Unknown Unknown Verified 04/29/24 08:56 Penicillins Allergy Unknown RASH Verified 04/29/24 08:56 tolmetin [TOLMETIN] Allergy Unknown UNKNOWN Verified 04/29/24 08:56 amitriptyline [From Elavil] Allergy Unknown Verified 04/29/24 08:56 diclofenac Allergy Unknown Verified 04/29/24 08:56 fenoprofen Allergy Unknown Verified 04/29/24 08:56 halofantrine [From Halfan] Allergy Unknown Verified 04/29/24 08:56 ketoprofen Allergy Unknown Verified 04/29/24 08:56 meclofenamic acid Allergy Unknown Verified 04/29/24 08:56 [meclofenamate sodium] mefenamic acid [From Ponstel] Allergy Unknown Verified 04/29/24 08:56 metformin Allergy Unknown Verified 04/29/24 08:56 morphine Allergy Unknown Verified 04/29/24 08:56 naproxen Allergy Unknown Verified 04/29/24 08:56 phenylbutazone Allergy Unknown Verified 04/29/24 08:56 piroxicam [From Feldene] Allergy Unknown Verified 04/29/24 08:56 sulindac Allergy Unknown Verified 04/29/24 08:56 Codeine Phosphate Allergy Unknown Unknown Uncoded 04/29/24 08:56 Home Medications ?Medication ?Instructions ?Recorded ?Confirmed ?Last Taken ?Type acetaminophen 500 mg capsule 500 mg PO Q8-10H PRN Pain 12/17/20 04/29/24 Unknown History albuterol sulfate 2.5 mg/3 mL 2.5 mg inhalation Q4-6H PRN 12/17/20 04/29/24 Unknown History (0.083 %) solution for nebulization Shortness Of Breath Or Wheezing amlodipine 10 mg tablet (Norvasc) 10 mg PO DAILY 12/17/20 04/29/24 Unknown History calcium carbonate (Calcium 500) 500 mg PO DAILY 12/17/20 04/29/24 Unknown History cholecalciferol (vitamin D3) 25 25 mcg PO DAILY 12/17/20 04/29/24 Unknown History mcg (1,000 unit) capsule clonazepam 1 mg tablet (Klonopin) 1 mg PO DAILY 12/17/20 04/29/24 04/29/24 History escitalopram oxalate 10 mg tablet 10 mg PO DAILY 12/17/20 04/29/24 Unknown History losartan 100 mg tablet 100 mg PO DAILY 12/17/20 04/29/24 Unknown History metformin 500 mg tablet,extended 500 mg PO DAILY 12/17/20 04/29/24 Unknown History release 24 hr montelukast 10 mg tablet 10 mg PO QPM 12/17/20 04/29/24 Unknown History pravastatin 20 mg tablet 20 mg PO BEDTIME 12/17/20 04/29/24 Unknown History diphenhydramine HCl 25 mg capsule 25 mg PO BEDTIME PRN Insomnia 06/20/23 04/29/24 Unknown History (Benadryl) albuterol sulfate 90 mcg/actuation 2 puff inhalation Q4-6H PRN 04/25/24 04/29/24 Unknown History aerosol inhaler Shortness Of Breath Or Wheezing budesonide 32 mcg/actuation nasal 2 spray intranasal DAILY 04/25/24 04/29/24 Unknown History spray clonazepam 1 mg tablet (Klonopin) 1 mg PO TID 04/25/24 04/29/24 Unknown History diphenhydramine HCl 12.5 mg/5 mL 25 mg PO TID 04/25/24 04/29/24 Unknown History oral elixir famotidine 20 mg tablet 20 mg PO DAILY 04/25/24 04/29/24 Unknown History ranitidine HCl 150 mg capsule 150 mg PO DAILY 04/25/24 04/29/24 Unknown History risperidone 1 mg tablet (Risperdal) 1 mg PO DAILY 04/25/24 04/29/24 Unknown History Exam Airway Mallampati Class: III TM Dist: >3cm Neck ROM: Full Assessment and Plan Assessment Anesthesia Assessment: Anesthesia Plan Discussed Final Anesthetic Review Family History of Problems with Anesthesia: No History of Problems with Anesthesia: No NPO: Yes ASA Class: III Final Preanesthetic Review: No Changes in Pt Med Stat, Meds/Allgs Chart Reviewed, Consent Obtained/Reviewed and Anes Risks/Benef Reviewed Patient Risk: Intermediate Procedure Risk: Low Anesthetic Plan Anesthetic Plan: TIVA Disposition: Standard PACU
[2024-04-29 08:52] VITALS: BMI 33.1
[2024-04-29 08:53] VITALS: BP 128/86; PULSE 94; RESP 14; TEMP 36.9; O2SAT 95
[2024-04-29 08:53] LABS: Glucose, Whole Blood 155 mg/dL (60-115)
[2024-04-29] MEDS: Lactated Ringers 1,000 ML 100 ML IVCONT (09:04)
--- NOTE | 2024-04-29 09:22 | MHC.SHP ---
Pre-Procedural Eval Section A - 24 Hr Update-Section A only Date of Service: 04/29/24 Section B - Complete if H&P > 30 days Chief Complaint: screening Details of Present Illness: see H&P no changes Relevant Family History (Specify if Yes): No Relevant Social History: None Present Medications: see Short Stay Collaborative assessment Medical History: No relevant PMH Allergies: Allergies Allergy/AdvReac Type Severity Reaction Status Date / Time aspirin Allergy Unknown SWELLING Verified 04/29/24 08:56 diphenhydramine Allergy Unknown RASH Verified 04/29/24 08:56 [From Benadryl] ibuprofen Allergy Unknown SWELLING Verified 04/29/24 08:56 indomethacin [From INDOCIN] Allergy Unknown UNKNWON Verified 04/29/24 08:56 NSAIDS (Non-Steroidal Allergy Unknown RASH Verified 04/29/24 08:56 Anti-Inflamma oxycodone Allergy Unknown SWELLING Verified 04/29/24 08:56 penicillin V Allergy Unknown Unknown Verified 04/29/24 08:56 Penicillins Allergy Unknown RASH Verified 04/29/24 08:56 tolmetin [TOLMETIN] Allergy Unknown UNKNOWN Verified 04/29/24 08:56 amitriptyline [From Elavil] Allergy Unknown Verified 04/29/24 08:56 diclofenac Allergy Unknown Verified 04/29/24 08:56 fenoprofen Allergy Unknown Verified 04/29/24 08:56 halofantrine [From Halfan] Allergy Unknown Verified 04/29/24 08:56 ketoprofen Allergy Unknown Verified 04/29/24 08:56 meclofenamic acid Allergy Unknown Verified 04/29/24 08:56 [meclofenamate sodium] mefenamic acid [From Ponstel] Allergy Unknown Verified 04/29/24 08:56 metformin Allergy Unknown Verified 04/29/24 08:56 morphine Allergy Unknown Verified 04/29/24 08:56 naproxen Allergy Unknown Verified 04/29/24 08:56 phenylbutazone Allergy Unknown Verified 04/29/24 08:56 piroxicam [From Feldene] Allergy Unknown Verified 04/29/24 08:56 sulindac Allergy Unknown Verified 04/29/24 08:56 Codeine Phosphate Allergy Unknown Unknown Uncoded 04/29/24 08:56 Review of Systems Sugical H&P ROS: Negative: Constitution, Cardiovascular, Respiratory, Neurological, Psychiatric, Hem-Onc, Allergic/Immunologic, Gastrointestinal, Genitourinary, Musculoskeletal, Integumentary, Endocrine and Eyes/Ears/Nose/Throat Exam Surgical H&P Exam: Normal: HEENT, Normal: Heart, Normal: Lungs, Normal: Extremities, Normal: Abdomen, Normal: Skin and Normal: Neurological Plan Diagnosis/Plan: Unchanged I have reviewed the history and physical and performed a pertinent physical examination on my patient. No changes have occurred unless specified. Time Spent With Patient Time: Total time managing care of this patient today ____ minutes.
[2024-04-29 10:12] VITALS: BP 124/65; PULSE 98; RESP 17; TEMP 36.7; O2SAT 96
[2024-04-29 10:24] VITALS: BP 125/80; PULSE 107; RESP 16; TEMP 36.6; O2SAT 97
--- NOTE | 2024-04-29 10:24 | OP_ITS ---
DATE OF SERVICE: 04/29/2024 SURGEON: Frank Sharif MD INDICATIONS: Colon cancer screening and prior history of adenomatous colon polyps. PREOPERATIVE DIAGNOSIS: POSTOPERATIVE DIAGNOSIS: PROCEDURE PERFORMED: Colonoscopy to the terminal ileum with biopsy. ESTIMATED BLOOD LOSS: COMPLICATIONS: ANESTHESIA: Monitored anesthesia care. ASSISTANTS: SPECIMENS: DESCRIPTION OF PROCEDURE: A history and physical was performed. The risks and benefits of the procedure were explained to the patient. Informed consent was obtained. The patient was placed in the left lateral decubitus position. A digital rectal exam was performed and was found to be normal. The Olympus pediatric video colonoscope was introduced into the rectum and advanced to the cecum. The cecum identified by transillumination, palpation, and identification of ileocecal valve. Examination was performed. The scope was removed. He tolerated the procedure well and was returned to the recovery area in stable condition. FINDINGS: The terminal ileum was briefly examined and appeared normal. The visualized colonic mucosa was within normal limits without evidence of masses or ulcers. One polyp measuring less than 5 mm was identified at 80 cm from the anal verge and removed with biopsy forceps. No other polyps were seen. The quality of the prep was good. Retroflexed examination showed small internal hemorrhoids. IMPRESSION: Colon polyp. RECOMMENDATION: Follow up the biopsy results. MD KELSI Madrigal/CHITRA / [id number]
== END 2024-04-29 11:05 | disposition home or self-care (01) ==
PROVIDERS: PCP Nurse Practitioner Primary Care; Visit Provider Internal Medicine Gastroenterology
PROC: 0DJD8ZZ Inspection of Lower Intestinal Tract, Via Natural or Artificial Opening Endoscopic (ICD-10-PCS; CPT 45378; principal; 2024-04-29 10:00)
DX: Z12.11 Encounter for screening for malignant neoplasm of colon (principal); D12.4 Benign neoplasm of descending colon; K64.8 Other hemorrhoids; Z86.0101 Personal history of adenomatous and serrated colon polyps; E11.9 Type 2 diabetes mellitus without complications; I10 Essential (primary) hypertension; E78.5 Hyperlipidemia, unspecified; G47.33 Obstructive sleep apnea (adult) (pediatric); Z87.891 Personal history of nicotine dependence; Z86.19 Personal history of other infectious and parasitic diseases; Z79.899 Other long term (current) drug therapy; Z79.02 Long term (current) use of antithrombotics/antiplatelets; Z79.84 Long term (current) use of oral hypoglycemic drugs
CPT/HCPCS: 45380; 82947; 88305; J2003; J2704

== ENCOUNTER 2024-05-03 09:00 | Outpatient (AMB) | payer OTHER, SELFPAY ==
--- NOTE | 2024-05-03 09:02 | AM.OFFWIN_ITS ---
Intake Vital Signs 05/03/24 09:09 Height 5 ft 6 in Weight 210 lb BMI 33.9 BP 134/70 Blood Pressure Location Lt brachial Position Sitting Pulse 88 Pulse Source Pulse Oximeter Temp 98.0 F Temp Source Oral Pulse Oximetry (%) 97 Oxygen Delivery Method Room Air Intake Visit Reasons: [employer]-Throat swollen Intake Note: Pt is here today c/o throat swollen due to a recent colonoscopy procedure and Rt ear pain Patient Tobacco Use Status: Former Tobacco user Allergies aspirin Allergy (Unknown, Verified 05/03/24 09:17) SWELLING diphenhydramine [From Benadryl] Allergy (Unknown, Verified 05/03/24 09:17) RASH ibuprofen Allergy (Unknown, Verified 05/03/24 09:17) SWELLING indomethacin [From INDOCIN] Allergy (Unknown, Verified 05/03/24 09:17) UNKNWON NSAIDS (Non-Steroidal Anti-Inflamma Allergy (Unknown, Verified 05/03/24 09:17) RASH oxycodone Allergy (Unknown, Verified 05/03/24 09:17) SWELLING penicillin V Allergy (Unknown, Verified 05/03/24 09:17) Unknown Penicillins Allergy (Unknown, Verified 05/03/24 09:17) RASH tolmetin [TOLMETIN] Allergy (Unknown, Verified 05/03/24 09:17) UNKNOWN amitriptyline [From Elavil] Allergy (Verified 05/03/24 09:17) Unknown diclofenac Allergy (Verified 05/03/24 09:17) Unknown fenoprofen Allergy (Verified 05/03/24 09:17) Unknown halofantrine [From Halfan] Allergy (Verified 05/03/24 09:17) Unknown ketoprofen Allergy (Verified 05/03/24 09:17) Unknown meclofenamic acid [meclofenamate sodium] Allergy (Verified 05/03/24 09:17) Unknown mefenamic acid [From Ponstel] Allergy (Verified 05/03/24 09:17) Unknown metformin Allergy (Verified 05/03/24 09:17) Unknown morphine Allergy (Verified 05/03/24 09:17) Unknown naproxen Allergy (Verified 05/03/24 09:17) Unknown phenylbutazone Allergy (Verified 05/03/24 09:17) Unknown piroxicam [From Feldene] Allergy (Verified 05/03/24 09:17) Unknown sulindac Allergy (Verified 05/03/24 09:17) Unknown Codeine Phosphate Allergy (Unknown, Uncoded 05/03/24 09:04) Unknown Medication List - Last Reconciled 05/03/24 by Yeni Rome [facility]- acetaminophen 500 mg PO Q8-10H PRN albuterol sulfate 90 mcg/actuation 2 puffs inhalation Q4-6H PRN albuterol sulfate 2.5 mg inhalation Q4-6H PRN alfuzosin ER 10 mg PO DAILY 90 days amlodipine (Norvasc) 10 mg PO DAILY budesonide 32 mcg/actuation 2 sprays intranasal DAILY calcium carbonate (Calcium 500) 500 mg PO DAILY cholecalciferol (vitamin D3) 25 mcg PO DAILY clonazepam (Klonopin) 1 mg PO BID clopidogrel 75 mg PO DAILY 90 days diphenhydramine HCl 25 mg PO TID escitalopram oxalate 10 mg PO DAILY famotidine 20 mg PO DAILY losartan 100 mg PO DAILY metformin ER 500 mg PO DAILY montelukast 10 mg PO QPM pravastatin 20 mg PO BEDTIME ranitidine HCl 150 mg PO DAILY risperidone (Risperdal) 1 mg PO DAILY HPI HPI Comments History of Present Illness Details 68-year-old Upper Sorbian-speaking male here t yrn with his daughter. Complains that he has a sore throat and right ear pain. Reports that on Sunday he went in for a colonoscopy. Since this time he has had the sensation of a sore throat. Shortly after he developed a productive cough followed by right ear pain. Has been using salt water gargles to help. No medications as he has several listed allergies. He does not have any painful swallowing. He is able to manage secretions. Reports that his voice can be hoarse at times. Exam Awake alert NAD Sclera and conjunctiva clear bilat Nares patent, turbinates within normal limits, no sinus tenderness with palpation bilat TM intact and clear bilat MMM, pharynx mild erythema, no exudate RRR LS CTAB Plan Advised the other than some very mild erythema his exam is benign. Advised for supportive care to include salt water gargles. I did offer to send in some lidocaine to swish and spit however given his allergies the family declines. It was okay to use his inhalers as needed to help with the cough. Educated that should his symptoms continue past 5 days or worsen that he should follow up with his primary care or return to the office. This note is constructed using voice recognition software. While every effort has been made to ensure accuracy in senior integration developer, still errors may have been included Sometimes, these errors may affect the content or meaning of the given sentence . [facility] Medical History (Updated 04/25/24 @ 09:26 by Penny Gomez RN) Asthma SRINATH (obstructive sleep apnea) Osteopenia Tubular adenoma of colon History of hepatitis C GERD (gastroesophageal reflux disease) Hyperlipidemia Personal history of nicotine dependence Diabetes mellitus HTN (hypertension) Hypertensive heart disease CAD (coronary artery disease) Surgical History History of hand surgery History of endoscopy History of hip surgery History of meniscectomy of right knee History of cardiac cath History of colonoscopy History of blepharoplasty Social History Patient Tobacco Use Status: Former Tobacco user Years Smoked: (former smoker, onset 15yo, 1ppd x 41yrs, 40pyh, quit ~2011) Current occupational status: disabled Current occupation: rt hand Physical Exam Vital Signs: Last Vital Signs Temp 98.0 F 05/03/24 09:09 Pulse 88 05/03/24 09:09 BP 134/70 05/03/24 09:09 Pulse Ox 97 05/03/24 09:09 Oxygen Delivery Method Room Air 05/03/24 09:09 BMI result Body Mass Index 33.9 Assessment & Plan Assessment & Plan (1) Otalgia, right ear: Code(s): H92.01 - Otalgia, right ear Plan: . (2) Pharyngitis: Code(s): J02.9 - Acute pharyngitis, unspecified Qualifiers: Pharyngitis/tonsillitis etiology: unspecified etiology Qualified Code(s): J02.9 - Acute pharyngitis, unspecified Plan: . (3) Cough: Code(s): R05.9 - Cough, unspecified Qualifiers: Cough type: acute Qualified Code(s): R05.1 - Acute cough Plan: . Coding Level of Care Code Est Pt Level 3 (34654) Diagnoses Otalgia, right ear H92.01 Pharyngitis, unspecified etiology J02.9 Pharyngitis/tonsillitis etiology: unspecified etiology Acute cough R05.1 Cough type: acute
[2024-05-03 09:09] VITALS: BP 134/70; PULSE 88; TEMP 36.7; O2SAT 97; BMI 33.9
== END 2024-05-03 10:10 | disposition home or self-care (01) ==
PROVIDERS: PCP Nurse Practitioner Primary Care; Visit Provider Nurse Practitioner Family
DX: H92.01 Otalgia, right ear (principal); J02.9 Acute pharyngitis, unspecified; R05.1 Acute cough

== ENCOUNTER → 2024-05-03 09:00 | Outpatient (BNVA) | payer OTHER, SELFPAY | PROVIDERS: PCP Nurse Practitioner Primary Care | DX: H92.01 Otalgia, right ear (principal); J02.9 Acute pharyngitis, unspecified; R05.1 Acute cough | CPT/HCPCS: 99212 ==

== ENCOUNTER 2024-07-10 07:56 | Outpatient (AMB) | payer OTHER, SELFPAY ==
--- NOTE | 2024-07-10 07:54 | MHC.OFFVIS ---
Intake Visit Reasons: 6 month [phone] Allergies aspirin Allergy (Unknown, Verified 07/10/24 07:54) SWELLING diphenhydramine [From Benadryl] Allergy (Unknown, Verified 07/10/24 07:54) RASH ibuprofen Allergy (Unknown, Verified 07/10/24 07:54) SWELLING indomethacin [From INDOCIN] Allergy (Unknown, Verified 07/10/24 07:54) UNKNWON NSAIDS (Non-Steroidal Anti-Inflamma Allergy (Unknown, Verified 07/10/24 07:54) RASH oxycodone Allergy (Unknown, Verified 07/10/24 07:54) SWELLING penicillin V Allergy (Unknown, Verified 07/10/24 07:54) Unknown Penicillins Allergy (Unknown, Verified 07/10/24 07:54) RASH tolmetin [TOLMETIN] Allergy (Unknown, Verified 07/10/24 07:54) UNKNOWN amitriptyline [From Elavil] Allergy (Verified 07/10/24 07:54) Unknown diclofenac Allergy (Verified 07/10/24 07:54) Unknown fenoprofen Allergy (Verified 07/10/24 07:54) Unknown halofantrine [From Halfan] Allergy (Verified 07/10/24 07:54) Unknown ketoprofen Allergy (Verified 07/10/24 07:54) Unknown meclofenamic acid [meclofenamate sodium] Allergy (Verified 07/10/24 07:54) Unknown mefenamic acid [From Ponstel] Allergy (Verified 07/10/24 07:54) Unknown metformin Allergy (Verified 07/10/24 07:54) Unknown morphine Allergy (Verified 07/10/24 07:54) Unknown naproxen Allergy (Verified 07/10/24 07:54) Unknown phenylbutazone Allergy (Verified 07/10/24 07:54) Unknown piroxicam [From Feldene] Allergy (Verified 07/10/24 07:54) Unknown sulindac Allergy (Verified 07/10/24 07:54) Unknown Codeine Phosphate Allergy (Unknown, Uncoded 05/03/24 09:04) Unknown HPI Comments Details: 68-yr-old male presents for follow-up televideo visit for f/u of mild SRINATH.. Pt is accompanied by his dtr. 09/27/2023, t HST, which revealed: mild SRINATH w/ AHI 12/hr and O2 jos eangel 74%. Since, pt states he is unable to consistently use his APAP 5-20 cmH2O, as he is the primary caregiver for his who has dementia. His sleep is often fragmented due to needing to care for her throughout the day and night. When he does use the machine, he does sleep and feels better during the day. He is cleaning his machine and supplies routinely. He does use distilled water. [place] [id number] Email: [email or web address] Compliance Report Usage 06/09/2024 - 07/08/2024 Usage days 4/30 days (13%) >= 4 hours 0 days (0%) < 4 hours 4 days (13%) Usage hours 5 hours 43 minutes Average usage (total days) 11 minutes Average usage (days used) 1 hours 26 minutes Median usage (days used) 1 hours 12 minutes Total used hours (value since last reset - 07/08/2024) 390 hours AirSense 10 AutoSet Serial number [id number] Mode AutoSet Min Pressure 5 cmH2O Max Pressure 20 cmH2O EPR Fulltime EPR level 2 Response Standard Therapy Pressure - cmH2O Median: 4.8 95th percentile: 6.8 Maximum: 7.6 Leaks - L/min Median: 3.0 95th percentile: 7.2 Maximum: 14.4 Events per hour AI: 0.0 HI: 0.0 AHI: 0.0 PFSH Medical History Asthma SRINATH (obstructive sleep apnea) Osteopenia Tubular adenoma of colon History of hepatitis C GERD (gastroesophageal reflux disease) Hyperlipidemia Personal history of nicotine dependence Diabetes mellitus HTN (hypertension) Hypertensive heart disease CAD (coronary artery disease) Surgical History History of hand surgery History of endoscopy History of hip surgery History of meniscectomy of right knee History of cardiac cath History of colonoscopy History of blepharoplasty Social History Patient Tobacco Use Status: Former Tobacco user Years Smoked: (former smoker, onset 15yo, 1ppd x 41yrs, 40pyh, quit ~2011) Current occupational status: disabled Current occupation: rt hand Physical Exam Const General: no acute distress Orientation/consciousness: patient oriented x3 Neuro General: patient oriented x3 Psych Mental Status: mental status grossly normal Speech and movement: Clear speech present Attitude: cooperative Telehealth Telehealth Telehealth Platform: [employer] Location of provider rendering services: practice address Location of patient: address on file Patient Identification confirmed using: Name, : Yes Telehealth method: video Patient verbally consented to treatment: Yes Patient verbally consented to billing insurance company: Yes Patient informed of any privacy concerns related to visit: Yes Minutes spent on Phone/Video with Pt.: 7 Assessment & Plan Assessment & Plan (1) Mild obstructive sleep apnea: Comment: 10/02/23: HST AHI 12/hr w/ O2 jose angel 74% Code(s): G47.33 - Obstructive sleep apnea (adult) (pediatric) Category: Medical Plan Encourage patient to use APAP 5-20 cmH2O whenever he is able to sleep, with the goal of using greater than 4 hours a night, as he does have good clinical effect from use. Once patient is able to use CPAP more consistently, consider nocturnal pulse oximetry reading x1 night to assess effectiveness of APAP on reducing degree of nocturnal hypoxemia. Clean and change PAP supplies routinely. Continue to use distilled water in CPAP water reservoir tubing. Pt to notify us or respiratory company w/ any issues or concerns r/t his PAP machine/use. follow-up in 6-12 months or sooner prn. Coding Level of Care Code Tele Est Pt Level 3 (76152) Diagnoses Mild obstructive sleep apnea G47.33
== END 2024-07-10 12:06 | disposition home or self-care (01) ==
PROVIDERS: PCP Nurse Practitioner Primary Care; Visit Provider Nurse Practitioner Family
DX: G47.33 Obstructive sleep apnea (adult) (pediatric) (principal)
CPT/HCPCS: 99213

== ENCOUNTER 2024-10-16 07:52 | Outpatient (REF) | payer OTHER, SELFPAY ==
--- OUTSIDE RECORDS SUMMARY | 2024-10-16 07:59 | XMS_ITS | Clinical Summary ---
Author Organization [facility] Address [address] [place] [address] Care Team Providers Care Geriatrician Name Role Phone Poonam Garcia MD Primary Care Provider [phone] Social History Tobacco Use Types Packs/Day Years Used Date Smoking Tobacco: Never Assessed Sex and Gender Information Value Date Recorded Sex Assigned at Not on file Legal Sex Male 6:28 PM EST Gender Identity Not on file Sexual Orientation Not on file Plan of Treatment Health Maintenance Due Date Last Done Comments Hepatitis C Virus Screening 1955 DTaP/Tdap/Td Vaccines (1 - Tdap) 08/27/1975 Colonoscopy 2001 Pneumococcal Vaccines 50+ (1 of 1 - PCV) 2006 Zoster (Shingles) Vaccine (1 of 2) 2006 Influenza Vaccine 01/24/2024 COVID-19 Vaccine ( - 2023-2 5 season) 2024 RSV Vaccine 60 years and old er and Patients (1 - 1-dose 75+ series) 08/27/2031 Hepatitis B Vaccines Aged Out No long er eligible based on patient's age to complete this topic Insurance MEDICAID OUT OF STATE [facility] Care Teams Geriatrician Relationship Specialty Start Date End Date Poonam Garcia MD PCP - General Surgery, General 11/06/19
--- OUTSIDE RECORDS SUMMARY | 2024-10-16 07:59 | XMS_ITS | Encounter Summary ---
Author Organization [facility] Address [address] [place] [address] 7[address] [place] [address] Care Team Providers Care Trailer Technician Name Role Phone Minnie Almonte Primary Care Provider [phone] Reason for Visit * Reason Comments Med Refill Encounter Details Date Type Department Care Team (Late st Contact Info) Description 09/12/2022 Refill [facility] [address] [place] [address] [phone] Minnie Almonte ANP [address] [place], [place] [phone] Hyperlipidemia associated with type 2 diabetes mellitus (CMS/[facility]) Social History Tobacco Use Types Packs/Day Years Used Date Smoking Tobacco: Former Cigarettes Smokeless Tobacco: Never Alcohol Use Standard Drinks/Week Comments Not Currently 0 (1 standard drink = 0.6 oz pur e alcohol) Sex and Gender Information Value Date Recorded Sex Assigned at Male 04/24/2022 10:14 AM EDT Legal Sex Male 10:14 AM EDT Gender Identity Male 04/24/2022 10:14 AM EDT Sexual Orientation Choose not to disclose 2021 10:14 AM EDT documented as of this encounter Plan of Treatment Upcoming Encounters Date Type Department Care Team (Late st Contact Info) Description 11/20/2024 10:30 AM EDT Office Visit [facility] [address] [place], [place] [phone] Minnie Almonte ANP [address] [place], [place] [phone] documented as of this encounter Visit Diagnoses Diagnosis Hyperlipidemia associated with type 2 diabetes mellitus (CMS/[facility]) documented in this encounter Care Teams Trailer Technician Relationship Specialty Start Date End Date Minnie Almonte ANP [address] [place] [address] PCP - General Family Medicine 04/15/21 documented as of this encounter
--- OUTSIDE RECORDS SUMMARY | 2024-10-16 07:59 | XMS_ITS | Encounter Summary ---
Author Organization [facility] Address [address] [facility] [address] [place] [address] Care Team Providers Care Cigar Wrapper Tender Automatic Name Role Phone Suzy Minnie MALDONADO Primary Care Provider [phone] Encounter Details Date Type Department Care Team (Late st Contact Info) Description 05/11/2023 Abstract [facility] [address] [place], [place] [phone] Joyce Ely Social History Tobacco Use Types Packs/Day Years Used Date Smoking Tobacco: Former Cigarettes Smokeless Tobacco: Never Alcohol Use Standard Drinks/Week Comments Not Currently 0 (1 standard drink = 0.6 oz pur e alcohol) Housing Stability Answer Date Recorded What is your housing situation today? I have shwetha melton 04/08/[address] you li ve. Do you have problems with any of the following? None of the above 04/08/2023 Food Insecurity Answer Date Recorded Within the past 12 months, y ou worried that your food would run out before you got money to buy more: Never True 04/08/2023 Within the past 12 months,th e food you bought just didn't last and you didn't have enough money to get more: Never True Transportation Answer Date Recorded In the past 12 months, has l ack of transportation kept you from medical appts, meetings, work or from getting things needed for daily living? No 04/08/2023 Utilities Answer Date Recorded In the past 12 months, has t he electric, gas, oil or water company threatened to shut off services in your home? No 04/08/2023 Sex and Gender Information Value Date Recorded [...] Description 11/20/2024 10:30 AM EDT Office Visit [facility] [address] [place] [address] Minnie Almonte ANP [address] [place] [address] documented as of this encounter Procedures Procedure Name Priority Date/Time Associated Diagnosis Comments COLONOSCOPY Routine 01/22/2019 documented in this encounter Results * Colonoscopy (01/22/2019) Colonoscopy Normal Normal Comment:repeat in 5 years Historical Provider HEALTH MAINTENANCE Final Result documented in this encounter Visit Diagnoses Not on filedocumented in this encounter Care Teams Cigar Wrapper Tender Automatic Relationship Specialty Start Date End Date Minnie Almonte ANP [address] [place] [address] PCP - General Family Medicine 04/15/21 documented as of this encounter
--- OUTSIDE RECORDS SUMMARY | 2024-10-16 07:59 | XMS_ITS | Encounter Summary ---
Author Organization [facility] Address [address] [facility] [address] [place] [address] Care Team Providers Care Bicycle Courier Name Role Phone Minnie Almonte Primary Care Provider [phone] Reason for Visit * Reason Comments Med Refill Encounter Details Date Type Department Care Team ([facility] st Contact Info) Description 04/11/2023 Refill [facility] [address] [place], [place] [phone] Minnie Almonte ANP [address] [place] [address] Social History Tobacco Use Types Packs/Day Years [...] t he electric, gas, oil or water [employer] threatened to shut off services in your [...] Description 11/20/2024 10:30 AM EDT Office Visit [facility] [address] [place] [address] Minnie Almonte ANP [address] [place] [address] documented as of this encounter Visit Diagnoses Not on filedocumented in this encounter Care Teams Bicycle Courier Relationship Specialty Start Date End Date Minnie Almonte ANP [address] [place] [id number] PCP - General Family Medicine 04/15/21 documented as of this encounter
--- OUTSIDE RECORDS SUMMARY | 2024-10-16 07:59 | XMS_ITS | Clinical Summary ---
Author Organization [facility], Address [address] [place] [address] [place] [address] Phone Care Team Providers Care Eye Dropper Assembler Name Role Phone Minnie Almonte NP Primary Care Provider [phone] Allergies Active Allergy Reactions Criticality Noted Date Comments Luis Inhibitors Other (see comments) 04/12/2020 COUGH Amitriptyline Other (see comments) High 04/12/2020 SUICIDAL IDEATION Aspirin Anaphylaxis High 04/07/2020 Codeine Hives 04/07/2020 Diphenhydramine 08/14/2023 Doxycycline Itching 04/12/2020 ANGIOEDEMA Ibuprofen Anaphylaxis High 04/12/2020 Morphine Itching 04/12/2020 Penicillins Itching,Swelling 04/07/2020 Medications acetaminophen (TYLENOL) 500 MG tablet TAKE ONE TO TWO TABLETS (1000MG) THREE TIMES A DAY NEEDED. MAX 6 TABLETS/24 HOURS 02/28/20 20 Active alendronate (FOSAMAX) 70 MG tablet 03/05/20 20 Active amLODIPine (NORVASC) 10 MG tablet 03/08/20 20 Active D3-1000 25 MCG (1000 UT) capsule 03/05/20 20 Active clonazePAM (KlonoPIN) 1 MG tablet 03/05/20 20 Active clopidogrel (PLAVIX) 75 MG tablet 03/12/20 20 Active cyclobenzaprin e (FLEXERIL) 10 MG tablet TOME GARY TABLETA VIA ORAL JERAD VECES AL MARA CONNIE SEA NECESARIO PARA BACK PAIN 03/17/20 20 Active escitalopram (LEXAPRO) 20 MG tablet 03/05/20 20 Active losartan (COZAAR) 100 MG tablet 03/05/20 20 Active metFORMIN XR (GLUCOPHAGE-XR ) 500 MG 24 hr tablet 03/05/20 20 Active montelukast (SINGULAIR) 10 MG tablet Take 10 mg by mouth 1 (one) time each day in the evening 04/05/20 Active pravastatin (PRAVACHOL) 20 MG tablet 03/08/20 Active risperiDONE (RisperDAL) 2 MG tablet 03/05/20 Active raNITIdine (ZANTAC) 150 MG tablet Take 150 mg by mouth 2 (two) times a day Active Calcium Carbonate (CALCIUM 500 PO) Take 500 mg by mouth 1 (one) time each day Active famotidine (PEPCID) 20 MG tablet Take 20 mg by mouth 2 (two) times a day Active glimepiride (AMARYL) 1 MG tablet 03/05/20 025 Discontinued Active Problems Problem Noted Date Diagnosed Date Chronic kidney disease, stage 2 (mild) Essential (primary) hypertension 10/11/2020 Type 2 diabetes mellitus wit h diabetic chronic kidney disease 04/07/2020 Resolved Problems Problem Noted Date Diagnosed Date Resolved Date Neuropathy due to diabetes mellitus 04/07/2020 04/25/2021 Hyperlipidemia 04/07/2020 04/25/2021 Proteinuria 04/07/2020 04/25/2021 Renal disorder due to type 2 diabetes mellitus 04/07/2020 04/25/2021 Encounters Date Type Department Care Team Description 10/14/2024 8:50 AM EDT Office Visit [facility] [address] [place] [address] Raffi Kraft MD Essential (primary) hypertension (Primary Dx) 08/20/2024 1:30 PM EST Office Visit [facility] [address] [place] [address] Raffi Kraft MD Essential (primary) hypertension (Primary Dx); Type 2 diabetes mellitus with diabetic chronic kidney disease (HCC) from Last 3 Months Family History Relation Status Comments Father Mother Social History Tobacco Use Types Packs/Day Years Used Date Smoking Tobacco: Former Tobacco Cessation:Counseling Given: Not Answered Comments:Smoking History Info:Some days Alcohol Use Standard Drinks/Week Comments Yes 0 (1 standard drink = 0.6 oz pure alcohol) Alcoholic Drinks/day: Occasional social drink Sex and Gender Information Value Date Recorded Sex Assigned at Not on file Legal Sex Male 4:32 PM EST Gender Identity Not on file Sexual Orientation Not on file Last Filed Vital Signs Vital Sign Reading Time Taken Comments Blood Pressure 128/76 08/15/2023 1:38 PM EST Pulse 74 03/31/2019 12:00 PM EDT Temperature - - Respiratory Rate 16 03/31/2019 12:00 PM EDT Oxygen Saturation - - Inhaled Oxygen Concentration - - Weight 98 kg (216 lb) 08/15/2023 1:38 PM EST Height 166.4 cm (5' 5.5 ) 08/15/2023 1:38 PM EST Body Mass Index 35.4 08/15/2023 1:38 PM EST Plan of Treatment Upcoming Encounters Date Type Department Care Team (Late st Contact Info) Description 10/29/2024 5:20 PM EDT Office [facility] [address] [place] [address] Raffi Kraft MD [address] [address] [place] [phone] 11/19/2024 3:50 PM EDT Office Visit [facility], [address] [facility] [place] [phone] Raffi Kraft MD [address] [place] [phone] Health Maintenance Due Date Last Done Comments Colorectal Cancer Screening: Annual FOBT 2005 Colorectal Cancer Screening: Colonoscopy 2005 Colorectal Cancer Screening: Sigmoidoscopy 2005 Diabetes: Ophthalmology Exam 09/15/2019 Diabetes: Pedal Pulse Checked 09/15/2019 Diabetes: Sensory Foot Exam 09/15/2019 Diabetes: Visual Foot Exam 09/15/2019 Diabetes: Hemoglobin A1C 11/18/2024 025, 05/08/2024, 07/20/2023 Hepatitis B Vaccine Aged Out 03/26/2015 No longe r eligible based on patient's age to complete this topic Pneumococcal Vaccine: 50+ Years Completed 04/10/2023, 09/13/2021, 02/23/2009 Pneumococcal Vaccine: Peds (0 to 5 Years) and At-Risk Patients (6 to 49 Years) Discontinued 04/10/2023, 09/13/2021, 02/23/2009 Influenza Vaccine Completed 04/12/2024, , 05/05/2021, Additional history exists Insurance [facility] Care Dual SNP ([id number]) [place] [id number] Care Teams Eye Dropper Assembler Relationship Specialty Start Date End Date Minnie Almonte NP [address] [place] [id number] PCP - General Nurse Practitioner 10/14/24
--- OUTSIDE RECORDS SUMMARY | 2024-10-16 07:59 | XMS_ITS | Encounter Summary ---
Author Organization [facility], Address [address] [place] [address] Phone Care Team Providers Care Blueprint Maker Name Role Phone Minnie Almonte NP Primary Care Provider [phone] Encounter Details Date Type Department Care Team (Late st Contact Info) Description 10/14/2024 8:50 AM EDT Office Visit [facility], [address] [place] [phone] Raffi Kraft MD [address] [place] [address] [place] [phone] Essential (primary) hypertension (Primary Dx) Social History Tobacco Use Types Packs/Day Years Used Date Smoking Tobacco: Former Comments:Smoking History Inf o:Some days Alcohol Use Standard Drinks/Week Comments Yes 0 (1 standard drink = 0.6 oz pure alcohol) Alcoholic Drinks/day: Occasional social drink Sex and Gender Information Value Date Recorded Sex Assigned at Not on file Legal Sex Male 4:32 PM EST Gender Identity Not on file Sexual Orientation Not on file documented as of this encounter Progress Notes * Raffi Kraft MD - 10/14/2024 8:50 AM EDT Images from the original note were not included. PATIENT: Talha Ness : 1955 ENCOUNTER: 10/14/2024 PCP: Minnie Almonte NP HPI: Talha Ness is a 69 y.o. year old male with a history of Longstanding diabetes, hypertension, and BPH who now presents for further evaluation. Chief Complaint - Elevated blood sugar (235 this morning) - High blood pressure (170/95 on second check) History of Present Illness The patient reports his blood glucose was 235 mg/dL this morning. He is currently taking metformin 1000 mg twice daily but discontinued glimepiride due to side effects. Since stopping glimepiride, his blood sugars have been fluctuating, often running in the 200s. Mr. Mendoza states he does everything possible to manage his diabetes and avoids sugar intake. He mentions that the glimepiride was effective in lowering his blood sugar before he had to stop it. Regarding his blood pressure, he reports feeling anxious, which may have contributed to the elevated readings. The patient also mentions he has been working on fixing a door at his house, which couldbe a source of physical exertion affecting his blood pressure. ROS: Constitutional: No fever. Respiratory: No shortness of breath. Cardiovascular: No chest pain. Gastrointestinal: No abdominal pain, nausea or vomiting. Genitourinary: No hematuria. All other systems reviewed and are negative. PAST MEDICAL HISTORY: Patient Active Problem List Diagnosis Date Noted Chronic kidney disease, stage 2 (mild) 10/11/2020 Essential (primary) hypertension 10/11/2020 Type 2 diabetes mellitus with diabetic chronic kidney disease (HCC) 04/07/2020 PAST SURGICAL HISTORY: Past Surgical History: Procedure Laterality Date OTHER SURGICAL HISTORY Bilateral blepharoplasty SOCIAL HISTORY: Social History Tobacco Use Smoking status: Former Smokeless tobacco: Not on file Tobacco comments: Smoking History Info:Some days Substance Use Topics Alcohol use: Yes Comment: Alcoholic Drinks/day: Occasional social drink FAMILY HISTORY: History reviewed. No pertinent family history. MEDICATIONS: Outpatient Encounter Medications as of 10/14/2024 Medication Sig Dispense Refill acetaminophen (TYLENOL) 500 MG tablet TAKE ONE TO TWO TABLETS (1000MG) THREE TIMES A DAY NEEDED.MAX 6 TABLETS/24 HOURS alendronate (FOSAMAX) 70 MG tablet amLODIPine (NORVASC) 10 MG tablet Calcium Carbonate (CALCIUM 500 PO) Take 500 mg by mouth 1 (one) time each day clonazePAM (KlonoPIN) 1 MG tablet clopidogrel (PLAVIX) 75 MG tablet cyclobenzaprine (FLEXERIL) 10 MG tablet TOME GARY TABLETA VIA ORAL JERAD VECES AL MARA CONNIE SEA NECESARIO PARA BACK PAIN D3-1000 25 MCG (1000 UT) capsule escitalopram (LEXAPRO) 20 MG tablet famotidine (PEPCID) 20 MG tablet Take 20 mg by mouth 2 (two) times a day losartan (COZAAR) 100 MG tablet metFORMIN XR (GLUCOPHAGE-XR) 500 MG 24 hr tablet montelukast (SINGULAIR) 10 MG tablet Take 10 mg by mouth 1 (one) time each day in the evening pravastatin (PRAVACHOL) 20 MG tablet raNITIdine (ZANTAC) 150 MG tablet Take 150 mg by mouth 2 (two) times a day risperiDONE (RisperDAL) 2 MG tablet [DISCONTINUED] glimepiride (AMARYL) 1 MG tablet No facility-administered encounter medications on file as of 10/14/2024. MEDICATION REVIEW: I have reviewed the patient's current medications. ALLERGIES: is allergic to amitriptyline, aspirin, ibuprofen, valentina inhibitors, codeine, diphenhydramine, doxycycline, morphine, and penicillins. PHYSICAL EXAM: There were no vitals taken for this visit. - Blood Pressure: 170/95 mmHg Constitutional: No apparent distress Cardiovascular: No friction rub. Pulmonary/Chest: No rales. Abdominal: Soft and non-tender. Extremities: Edema None LABS: Chemistry Lab Units 06/30/23 0854 03/25/23 1019 CREATININE mg/dL 0.93 0.91 BUN mg/dL 19* 20* POTASSIUM mmol/L 4.4 4.4 SODIUM mmol/L 140 139 CO2 mmol/L 28 26 CHLORIDE mmol/L 102 104 ALBUMIN g/dL -- 4.3 Bone Mineral Lab Units 06/30/23 0854 03/25/23 1019 CALCIUM mg/dL 10.2 10.4* ALK PHOS U/L -- 84 LABORATORY REVIEW: I have reviewed the labs noted above as well as in the chart, in [facility] and in Care Everywhere. DOCUMENTATION REVIEW: I have reviewed the applicable outside notes located in the chart, in CIS and in Care Everywhere. ASSESSMENT: 1. Essential (primary) hypertension Kind 69-year-old gentleman with a history of longstanding hypertension, diabetes benign prostatic hypertrophy who now presents for further evaluation. At this point his current medical issues include Diabetes Mellitus Type 2 Assessment: Patient's diabetes is currently poorly controlled with morning blood glucose of 235 mg/dL. He is taking metformin 1000 mg twice daily but discontinued glimepiride due to side effects. Since stopping glimepiride, blood sugars have been running in the 200s. The patient reports adhering todietary restrictions. An updated HbA1c is needed to assess overall glycemic control before adjusting medication regimen. Plan: - Continue metformin 1000 mg PO BID - Order HbA1c - Discuss potential addition of new antidiabetic medication at follow-up appointment after reviewing HbA1c results - Follow-up appointment scheduled for Sunday evening in two weeks Hypertension Assessment: Patient's blood pressure was initially elevated but improved on repeat measurement to 170/95 mmHg, which is still above goal. The elevated blood pressure may be partially attributed to anxiety in the clinical setting. Plan: - Recheck blood pressure at follow-up appointment in two weeks - Consider medication adjustment based on follow-up blood pressure readings Chronic Kidney Disease (suspected) Assessment: Given the patient's history of diabetes and hypertension, there is concern for potential chronic kidney disease. Further evaluation is necessary to assess renal function and proteinuria. Plan: - Order comprehensive metabolic panel to assess renal function - Order urinalysis to check for proteinuria - Review results at follow-up appointment in two weeks Orders Placed This Encounter Urine Albumin / Creatinine Ratio documented in this encounter Plan of Treatment Upcoming Encounters Date Type Department Care Team (Late st Contact Info) Description 10/29/2024 5:20 PM EDT Office [facility] [address] [phone] Raffi Kraft MD [address] [place] [address] [place] [address] 11/19/2024 3:50 PM EDT Office Visit [facility] [address] [place] [address] Raffi Kraft MD [address] [place] [address] Scheduled Orders Name Type Priority Associated Diagnoses Orde r Schedule Urine Albumin / Creatinine Ratio Lab Routine Essential (primary) hypertension Expected: 10/14/2024, Expires: 11/13/2025 documented as of this encounter Visit Diagnoses Diagnosis Essential (primary) hypertension- Primary documented in this encounter Care Teams Blueprint Maker Relationship Specialty Start Date End Date Minnie Almonte NP [address] [place] [address] PCP - General Nurse Practitioner 10/14/24 documented as of this encounter
--- OUTSIDE RECORDS SUMMARY | 2024-10-16 07:59 | XMS_ITS | Data Portability ---
Author Organization [facility] Address [address] [facility],[address] [place] [address] Care Team Providers Care Airport Baggage Screener Name Role Phone PADMINI HINTON Referring Provider [phone] Assessment Encounter Date Assessment Date Assessment LastModified by Organization Details LastModified Time 02/12/2017 02/12/2017 Talha Mendoza is a 61 year old man with complaints of pain in both shoulders and knees. His greatest pain today is in his right shoulder. On exam, Limited range of motion is present in his right shoulder. Pain is elicited with abduction. Tenderness is elicited on palpation of his right sub acromial region. I recommend a right shoulder steroid injection under ultrasound guidance. The risks and benefits of the procedure were discussed in detail. He wishes to proceed.An appointment will be booked after insurance approval. I have given him a sample of voltaren gel . I have advised him to discuss using it with his PCP as he is on plavix. [email or web address] Not available 02/12/2017 14:31:43 02/19/2017 02/19/2017 Talha Mendoza is a 61 year old man with complaints of pain in both shoulders and knees. His greatest pain today is in his right shoulder. On exam, Limited range of motion is present in his right shoulder. Pain is elicited with abduction. Tenderness is elicited on palpation of his right sub acromial region. He is here for a right shoulder steroid injection under ultrasound guidance. The risks and benefits of the procedure were discussed in detail. He wishes to proceed He has complaints of low back pain radiating into both lower extremities, right is greater than left for the past four months. He had good pain benefit in the past with lumbar epidural steroid injections in 01/2015. On exam, straight leg raising test is positive on the right. Physical therapy in the past did not help. He is doing a home exercise program with persistent pain. MRI Lumbar Spine shows Grade I anterior spondylolisthesis at L5-S1 secondary to underlying spondylolysis with superimposed moderate broad based predominantly right sided disc herniation and degenerative facet arthropathy causing marked right and moderate to marked left sided foraminal stenosis with encroachment upon the right and possibly the left L5 nerve roots within the foramen. I recommend lumbar epidural steroid injection at L5-S1 level under fluoroscopic guidance. The risks and benefits of the procedure were reviewed and He wishes to proceed. An appointment has been booked for the same. He needs a tour driver on the day of the procedure. He is a diabetic. Blood sugar levels may temporarily increase after steroid injections. He was advised to check his blood glucose levels three times a day post procedure. If his levels are above 250, he was advised to contact his PCP. [email or web address] Not available 02/22/2017 11:09:03 10/01/2017 10/01/2017 Talha Mendoza is a 62 year old man with complaints of pain in both shoulders and knees. His greatest pain today is in his right shoulder. On exam, Limited range of motion is present in his right shoulder. Pain is elicited with abduction. Tenderness is elicited on palpation of his right subacromial region. I recommend a right shoulder steroid injection under ultrasound guidance. The risks and benefits of the procedure were discussed in detail. He wishes to proceed. An appointment will be booked after insurance approval. He needs a tour driver on the day of the procedure. He also has pain in his left shoulder. On exam, Limited range of motion is present in his left shoulder. Pain is elicited with abduction. Tenderness is elicited on palpation of his left subacromial region. I recommend a left shoulder steroid injection under ultrasound guidance two weeks after the right. The risks and benefits of the procedure were discussed in detail. He wishes to proceed. An appointment will be booked after insurance approval. He needs a tour driver on the day of the procedure. He is a diabetic. Blood sugar levels may temporarily increase after steroid injections. He was advised to check his blood glucose levels three times a day post procedure. If his levels are above 250, he was advised to contact his PCP. [email or web address] Not available 10/02/2017 08:43:11 10/15/2017 10/15/2017 Talha Mendoza is a 61 year old man with complaints of pain in both shoulders and knees. His greatest pain today is in his right shoulder. On exam, Limited range of motion is present in his right shoulder. Pain is elicited with abduction. Tenderness is elicited on palpation of his right subacromial region. He is here for a right shoulder steroid injection under ultrasound guidance. The risks and benefits of the procedure were discussed in detail. He wishes to proceed. He is a diabetic. Blood sugar levels may temporarily increase after steroid injections. He was advised to check his blood glucose levels three times a day post procedure. If his levels are above 250, he was advised to contact his PCP. [email or web address] Not available 10/15/2017 15:29:52 10/22/2017 10/22/2017 Talha Mendoza is a 62 year old man with complaints of pain in both shoulders and knees. His greatest pain today is in his left shoulder. On exam, Limited range of motion is present in his left shoulder. Pain is elicited with abduction. Tenderness is elicited on palpation of his left sub acromial region. He is here for a left shoulder steroid injection under ultrasound guidance. The risks and benefits of the procedure were discussed in detail. He wishes to proceed He has complaints of low back pain radiating into both lower extremities, right is greater than left for the past four months. He had good pain benefit in the past with lumbar epidural steroid injections in 01/2015. On exam, straight leg raising test is positive on the right. Physical therapy in the past did not help. He is doing a home exercise program with persistent pain. MRI Lumbar Spine shows Grade I anterior spondylolisthesis at L5-S1 secondary to underlying spondylolysis with superimposed moderate broad based predominantly right sided disc herniation and degenerative facet arthropathy causing marked right and moderate to marked left sided foraminal stenosis with encroachment upon the right and possibly the left L5 nerve roots within the foramen. I recommend repeat lumbar epidural steroid injection at L5-S1 level under fluoroscopic guidance. The risks and benefits of the procedure were reviewed and He wishes to proceed. An appointment will be booked after insurance approval. He needs a tour driver on the day of the procedure. He is a diabetic. Blood sugar levels may temporarily increase after steroid injections. He was advised to check his blood glucose levels three times a day post procedure. If his levels are above 250, he was advised to contact his PCP. [email or web address] Not available 10/22/2017 11:10:51 Plan of Treatment Reminders Order Date Submit Date Provider Last Modified By Organization Details Last Modified Time Details Appointments None record ed. Lab None record ed. Referral None record ed. Procedures None record ed. Surgeries None record ed. Imaging None record ed. Medication Orders None record ed. Patient TargetsNo targets recorded. Patient Instructions Encounter Date Encounter Id Patient Instructions Last Modified By Organization Details Last Modified Time 02/12/2017 [id number] He was advised against bed rest lasting longer than four days and to continue activities as tolerated. Benefits of smoking cessation were discussed with him. [email or web address] Not available 02/12/2017 14:28:54 02/19/2017 [id number] He was advised against bed rest lasting longer than four days and to continue activities as tolerated. Benefits of smoking cessation were discussed with him. [email or web address] Not available 02/22/2017 10:38:10 10/01/2017 [id number] He was advised against bed rest lasting longer than four days and to continue activities as tolerated. Benefits of smoking cessation were discussed with him. [email or web address] Not available 10/02/2017 08:29:19 10/15/2017 [id number] He was advised against bed rest lasting longer than four days and to continue activities as tolerated. Benefits of smoking cessation were discussed with him. [email or web address] Not available 10/15/2017 15:27:51 10/22/2017 [id number] He was advised against bed rest lasting longer than four days and to continue activities as tolerated. Benefits of smoking cessation were discussed with him. [email or web address] Not available 10/22/2017 11:08:50 Reason for Referral None Reported. Problems Name Problem SNOMED Code Status Onset Date Resolution Date Notes Provider Name and Address Organization Details Recorded Time Lumbosacral radiculitis [id number] Prudence olson MD [address] , [address], [place], [address], [place] [facility] 6 10:39:48 Muscle pain [id number] Prudence olson MD [address] , [address], [place], [address], [place] [facility] 6 10:39:49 Neuropathy due to diabetes mellitus [id number] Prudence olson MD [address] , [address], [place], [address], [place] [facility] 6 11:21:14 Shoulder joint pain 227346868 Active Rory olson MD [address] , [address], [facility] [place], [address], [place] [facility] 6 11:21:14 Pain in left knee Active Rory olson MD [address] , [address], [facility] [place], [address], [place] [facility] 6 11:21:14 Displacement of lumbar intervertebral disc without myelopathy 64032550 Active Rory olson MD [address] , [address], [facility] [place], [address], [place] [facility] 6 10:39:48 Enthesopathy of hip region 38364416 Active Rory olson MD [address] [facility] , [address], [facility] [place], [address], [place] [facility] 6 10:39:49 Problem Notes None recorded. Procedures Surgical History Date Name Laterality Status Provider Name and Address Organization Details Recorded Time 10/23/19 18 Intra-articular shoulder steroid injection under ultrasound guidance completed Rory Sapp MD [address] , [address], [place], [address], [place] [facility] 10/22/2017 11:07:14 10/16/19 18 Intra-articular shoulder steroid injection under ultrasound guidance completed Rory Sapp MD [address] , [address], [place], [address], [place] [facility] 10/15/2017 15:29:04 02/20/20 17 Intra-articular shoulder steroid injection under ultrasound guidance completed Rory Sapp MD [address] , [address], [place], [address], [place] [facility] 02/22/2017 10:38:22 09/29/19 17 Intra-articular shoulder steroid injection under ultrasound guidance completed Rory Sapp MD [address] , [address], [place], [address], [place] [facility] 09/28/2016 14:41:24 02/08/20 16 Intra-articular shoulder steroid injection under ultrasound guidance completed Rory Sapp MD [address] , [address], [place], [address], [place] [facility] 02/08/2016 11:20:24 01/29/20 15 Trigger Point Injections under ultrasound guidance completed Rory Sapp MD [address] [facility] , [address], [place], [address], [place] [facility] 02/03/2015 10:13:59 01/27/20 15 Lumbar Epidural steroid injection under fluoroscopic guidance completed Rory Sapp MD [address] [facility] , [address], [place], [address], [place] [facility] 01/28/2015 09:19:08 04/02/20 12 Intra-articular Hip Steroid Injection completed Rory Sapp [facility] [address] [facility] [address], [place], [address], [place] [facility] 04/03/2012 11:04:47 02/05/20 12 Lumbar Epidural steroid injection under fluoroscopic guidance completed Rory Sapp MD [address] [facility] , [address], [place], [address], [place] [facility] 02/06/2012 11:45:31 Other completed Vanessa Saeed [place] [facility] 01/15/2015 10:57:36 Other completed Vanessa Saeed [place] [facility] 01/21/2015 15:26:31 Other completed Vanessa Saeed [place] [facility] 01/25/2012 10:16:12 Imaging Results None recorded. Procedure Notes None recorded. Medical Equipment None Reported. Allergies Allergen ID Allergen Name Allergen Category Reaction Reaction Severity Criticality Documentation Date Start Date Code Code System Note Provider Name and Address Organization Details Recorded Time 41998 aspirin medicatio n hives Not available Not available 01/26/2015 1191 RxNorm Vanessa montero [place] [facility] 5 13:06:17 3261 Product containin g penicilli n (product) medicatio n Not available Not available Not available 01/25/2012 74130 8001 SNOMED [place] montero [place] [facility] 2 10:16:12 3262 amoxicill in medicatio n Not available Not available Not available 01/25/2012 723 RxNorm [facility] 2 10:16:12 4181 codeine medicatio n hives Not available Not available 05/14/2012 2670 RxNorm Vanessa montero [place] [facility] 2 15:48:55 Medications Name Sig Start Date Stop Date Status Note LastModified by Organization Details LastModified Time Mapap Extra Strength 500 mg tablet active Not Available Not Available Not Available Qvar 80 mcg/actuati on Metered Aerosol oral inhaler active Not Available Not Available Not Available doxycycline hyclate 100 mg capsule active Not Available Not Available N ot Available benztropine 0.5 mg tablet active Not Available Not Available Not Available albuterol sulfate 2.5 mg/3 mL (0.083 %) solution for nebulizatio n active Not Available Not Available Not Available azithromyci n 250 mg tablet 10/22 completed Not Available Not Available Not Available prednisone 20 mg tablet 10/22 completed Not Available Not Available Not Available clonazepam 0.5 mg tablet TAKE ONE TABLET BY MOUTH TWICE A DAY AND TAKE ONE TO TWO TABLETS AT BEDTIME NEEDED 09/14 completed Not Available Not Available Not Available sertraline 100 mg tablet TAKE ONE TABLET BY MOUTH EVERY DAY IN THE MORNING 10/22 completed Not Available Not Available Not Available clonazepam 1 mg tablet TAKE ONE TABLET BY MOUTH THREE TIMES A DAY active Not Available Not Available No t Available Calcium Antacid 200 mg (as calcium carbonate 500 mg) chewable tablet CHEW AND SWALLOW ONE TABLET BY MOUTH TWICE A DAY active Not Available Not Available No t Available clopidogrel 75 mg tablet TAKE ONE TABLET BY MOUTH EVERY DAY active Not Available Not Available No t Available tramadol 50 mg tablet active Not Available Not Available No t Available triamcinolo ne acetonide 0.1 % topical cream active Not Available Not Available Not Available lidocaine-p rilocaine 2.5 %-2.5 % topical cream APPLY A SMALL AMOUNT TO THE AFFECTED AREA THREE TIMES A DAY active Not Available Not Available No t Available glimepiride 1 mg tablet TAKE ONE TABLET BY MOUTH TWICE A DAY WITH MEALS active Not Available Not Available No t Available Celebrex 200 mg capsule Take 1 capsule twice a day by oral route after meals for 30 days. 2011 active Not Available Not Available Not Avai lable risperidone 2 mg tablet active Not Available Not Available Not Available oxycodone-a cetaminophe n 5 mg-325 mg tablet active Not Available Not Available No t Available amlodipine 10 mg tablet TAKE ONE TABLET BY MOUTH EVERY DAY active Not Available Not Available No t Available erythromyci n 5 mg/gram (0.5 %) eye ointment 02/12 completed Not Available Not Available Not Available ranitidine 150 mg tablet TAKE ONE TABLET BY MOUTH TWICE A DAY active Not Available Not Available No t Available lidocaine 5 % topical patch 02/12 completed Not Available Not Available Not Available valsartan 320 mg tablet TAKE ONE TABLET BY MOUTH EVERY DAY active Not Available Not Available No t Available benztropine 1 mg tablet active Not Available Not Available Not Available omeprazole 20 mg capsule,del ayed release active Not Available Not Available Not Available Actos 15 mg tablet active Not Available Not Available Not Available montelukast 10 mg tablet TAKE ONE TABLET BY MOUTH EVERY DAY IN THE EVENING active Not Available Not Available No t Available pravastatin 20 mg tablet TAKE ONE TABLET BY MOUTH EVERY DAY IN THE EVENING active Not Available Not Available No t Available Nasonex 50 mcg/actuati on [place] active Not Available Not Available Not Available fluticasone propionate 50 mcg/actuati on nasal spray,suspe nsion active Not Available Not Available Not Available risperidone 1 mg tablet TAKE ONE TO TWO TABLETS ONCE DAILY AT BEDTIME NEEDED 10/22 completed Not Available Not Available Not Available Ventolin HFA 90 mcg/actuati on aerosol inhaler INHALE 2 PUFFS FOUR TIMES A DAY NEEDED active Not Available Not Available No t Available Benicar 40 mg tablet TAKE ONE TABLET BY MOUTH EVERY DAY 09/14 completed Not Available Not Available Not Available escitalopra m 10 mg tablet TAKE 1/2 TABLET BY MOUTH EVERY MORNING FOR 7 DAYS THEN TAKE 1 TABLET DAILY EVERY MORNING active Not Available Not Available No t Available Vitamin D3 25 mcg (1,000 unit) tablet TAKE ONE TABLET BY MOUTH TWICE A DAY active Not Available Not Available No t Available Benicar HCT 40 mg-25 mg tablet active Not Available Not Available Not Available Alcohol Prep Pads USE TO TEST BLOOD SUGAR TWICE A DAY active Not Available Not Available No t Available Lexapro 5 mg tablet Take 1 tablet every day by oral route. active Not Available Not Available No t Available Banophen 12.5 mg/5 mL oral liquid TAKE 10ML BY MOUTH THREE TIMES A DAY NEEDED active Not Available Not Available No t Available Zostavax (PF) 19,400 unit/0.65 mL subcutaneou s suspension 02/12 completed Not Available Not Available Not Available Januvia 100 mg tablet active Not Available Not Available No t Available FreeStyle Lite Strips active Not Available Not Available Not Available diclofenac 1 % topical gel APPLY 4 GRAMS TOPICALLY THREE TIMES A DAY TO AFFECTED AREA DIRECTED active Not Available Not Available No t Available Children's Benadryl Allergy 12.5 mg/5 mL oral liquid Take 20 mL every 4 hours by oral route. 02/12 completed Not Available Not Available Not Available Prolia 60 mg/mL subcutaneou s syringe active Not Available Not Available No t Available Proctosol HC 2.5 % topical cream perineal applicator APPLY TO AFFECTED AREA TWO TIMES EVERY DAY 02/12 completed Not Available Not Available Not Available Vitals Date Recorded Heart rate Oxygen saturation Oxygen saturation in Arterial blood by Pulse oximetry Systolic blood pressure Diastolic blood pressure Provider Name and Address Organization Details Last Updated DateTime 7 74 /min 97 % 97 % 115 mm[Hg] 72 mm[Hg] Vanessa Saeed [facility] 7 13:14:21 Date Recorded Heart rate Oxygen saturation Oxygen saturation in Arterial blood by Pulse oximetry Systolic blood pressure Diastolic blood pressure Provider Name and Address Organization Details Last Updated DateTime 7 77 /min 97 % 97 % 129 mm[Hg] 79 mm[Hg] Vanessa Saeed [facility] 7 13:33:15 Date Recorded Oxygen saturation Oxygen saturation in Arterial blood by Pulse oximetry Heart rate Body height Body mass index (BMI) Body weight Systolic blood pressure Diastolic blood pressure Provider Name and Address Organization Details Last Updated DateTime 8 95 % 95 % 71 /min 167.64 cm 33.9 kg/m2 22722.4 g 134 mm[Hg] 84 mm[Hg] Vanessa Saeed [place] [facility] 8 11:56:37 Date Recorded Pain severity - 0-10 verbal numeric rating [Score] - Reported Provider Name and Address Organization Details Last Updated DateTime 10/01/2017 6 Not Available [facility] 8 05:02:17 Date Recorded Body height Heart rate Oxygen saturation Oxygen saturation in Arterial blood by Pulse oximetry Systolic blood pressure Diastolic blood pressure Provider Name and Address Organization Details Last Updated DateTime 8 167.64 cm 71 /min 95 % 95 % 131 mm[Hg] 73 mm[Hg] Vanessa Prietozier [place] - [facility] 8 14:55:51 Date Recorded Body height Heart rate Oxygen saturation Oxygen saturation in Arterial blood by Pulse oximetry Systolic blood pressure Diastolic blood pressure Provider Name and Address Organization Details Last Updated DateTime 8 167.64 cm 81 /min 96 % 96 % 118 mm[Hg] 93 mm[Hg] Vanessa Saeed [place] [facility] 8 10:14:26 Social History Question Answer Notes LastModified by Organizat ion Details LastModified Time Tobacco Smoking Status Current Every Day Smoker Not Available [facility] 04/09/2020 03:16:11 What Is Your Level Of Alcohol Consumption? None [id number] Information not available 04/09/2020 Are You Currently Employed? No [employer] [id number] Information not available 04/09/2020 Which Illicit Or Recreational Drugs Have You Used? No [id number] Information not available 04/09/2020 Education Less Than 8th Grade [email or web address] Information not available 01/25/2012 Live Alone Or With Others? With Others And Daughter Information not available 01/25/2012 Marital Status [place] [id number] Informatio n not available 01/25/2012 What Was The Date Of Your Most Recent Tobacco Screening? 10/22/2017 [id number] Information not available 04/09/2020 How Much Tobacco Do You Smoke? 0.25 PPD [id number] Information not available 04/09/2020 Sex: Unknown Functional Status None recorded. Mental Status None recorded. Family History Nothing Reported. Medical History Condition Response Diabetes Y Arthritis Y Hypertension Y Osteoporosis Y High Cholesterol Y Past Encounters Encounter ID Performer Location Encounter Start Date Encounter Closed Date Diagnosis/Indication Diagnosis SNOMED-CT Code Diagnosis ICD10 Code Diagnosis Note [id number] [facility] [address] [place] [address] 01/25/2012 09:47:03 01/25/2012 11:19:31 [id number] [facility] [address] [place] [id number] 02/05/2012 15:36:13 02/05/2012 16:13:38 [id number] Rory Sapp MD [facility] [address] [place] [address] 03/08/2012 08:45:06 03/08/2012 09:21:51 [id number] Rory Sapp MD [facility] [address] [place] [address] 04/02/2012 15:14:29 04/02/2012 16:03:24 [id number] Rory Sapp MD [facility] [address] [place] [address] 05/14/2012 15:40:22 05/15/2012 14:56:05 [id number] Rory Sapp MD [facility] [address] [place] [address] 01/15/2015 10:33:38 01/17/2015 13:03:46 Displacement of lumbar intervertebral disc without myelopathy 18908807 Enthesopat hy of hip region 09241540 Muscle pain 79855717 Lumbosacra l radiculitis 93160719 [id number] [facility] [address] [place] [address] 01/26/2015 12:58:25 01/28/2015 09:20:28 Muscle pain 95723084 Displaceme nt of lumbar intervertebral disc without myelopathy 17188166 Enthesopat hy of hip region 06672161 Lumbosacra l radiculitis 99694588 [id number] [facility] [address] [place] [address] 01/28/2015 12:53:02 02/03/2015 10:14:41 Muscle pain 02717497 Displaceme nt of lumbar intervertebral disc without myelopathy 84031228 Enthesopat hy of hip region 01611106 Lumbosacra l radiculitis 03000778 [id number] [facility] [address] [place] [address] 03/16/2015 08:29:15 03/16/2015 09:52:50 Displacement of lumbar intervertebral disc without myelopathy 54781859 Enthesopat hy of hip region 60081278 Lumbosacra l radiculitis 87330537 Muscle pain 97084213 [id number] Rory Sapp MD [facility] [address] [place] [address] 02/08/2016 08:51:23 02/08/2016 11:23:25 Neuropathy due to diabetes mellitus 011452716 E11.40 Shoulder joint pain 2679 22405 M25.511 Pain in left knee 202949 0431 91933 M25.562 [id number] Rory Sapp MD [facility] [address] [facility] [place] [address] 09/14/2016 11:18:49 09/14/2016 21:35:34 Neuropathy due to diabetes mellitus 626681672 E11.40 Shoulder joint pain 2679 01986 M25.511 Pain in left knee 790046 7247 95398 M25.562 [id number] Rory Sapp MD [facility] [address] [facility] [address] [facility] [place] [address] 09/28/2016 12:57:01 09/29/2016 10:21:21 Neuropathy due to diabetes mellitus [id number] E11.40 Shoulder joint pain 2679 03241 M25.511 Pain in left knee 968369 5148 78822 M25.562 54371 Rory Sapp MD [facility] [address] [facility] [address] [facility] [place] [address] 02/12/2017 13:11:49 02/12/2017 15:48:06 Neuropathy due to diabetes mellitus [id number] E11.40 Shoulder joint pain 2679 69364 M25.511 Pain in left knee 464995 2068 55015 M25.562 86536 Rory Sapp MD [facility] [address] [facility] [place] [address] 02/19/2017 13:03:32 02/22/2017 10:51:38 Neuropathy due to diabetes mellitus [id number] E11.40 Shoulder joint pain 2679 59805 M25.511 Pain in left knee 198962 4593 00343 M25.562 Displaceme nt of lumbar intervertebral disc without myelopathy 56911096 M51.26 Lumbosacra l radiculitis 00420564 M54.17 71227 Rory Sapp MD PAIN OFFICE [address] [employer] [address] [address] 10/01/2017 11:20:22 10/02/2017 08:38:41 Neuropathy due to diabetes mellitus [id number] E11.40 Shoulder joint pain 2679 43626 M25.511 Pain in left knee 388505 5373 49941 M25.562 Displaceme nt of lumbar intervertebral disc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
--- OUTSIDE RECORDS SUMMARY | 2024-10-16 07:59 | XMS_ITS | Encounter Summary ---
Author Organization [facility] Address [address] [place] [address] Phone Care Team Providers Care Chair Caner Name Role Phone SuzyMinnie Dakota TREJO Primary Care Provider [phone] Encounter Details Date Type Department Care Team (Late st Contact Info) Description 04/27/2022 Documentation Only [facility] [address] [place] [address] Bethany Brink PA Social History Tobacco Use Types Packs/Day Years [...] on file documented as of this encounter Plan of Treatment Upcoming Encounters Date Type Department Care Team (Late st Contact Info) Description 10/29/2024 5:20 PM EDT Office Visit [facility] [address] [place] [address] Raffi Kraft MD [address] [place] [address] [place] [address] 11/19/2024 3:50 PM EDT Office Visit [facility] [address] [place] [address] Raffi Kraft MD [address] [place] [address] [place] [address] documented as of this encounter Visit Diagnoses Not on filedocumented in this encounter Care Teams Chair Caner Relationship Specialty Start Date End Date Minnie Almonte NP [address] [place] [address] PCP - General Nurse Practitioner 10/14/24 documented as of this encounter
--- OUTSIDE RECORDS SUMMARY | 2024-10-16 07:59 | XMS_ITS | Encounter Summary ---
Author Organization [facility] Address [address] [facility] [address] [place] [address] Care Team Providers Care Food Consultant Name Role Phone Minnie Almonte Primary Care Provider [phone] Reason for Visit * Reason Comments Med Refill Encounter Details Date Type Department Care Team (Late st Contact Info) Description 07/30/2022 Refill [facility] MEDICINE [address] [place] [address] Minnie Almonte ANP [address] [place] [address] Hyperlipidemia associated with type 2 diabetes mellitus (CMS/[facility]) Social History Tobacco Use Types Packs/Day Years [...] not to disclose 2021 10:14 AM EDT COVID-19 Exposure Response Date Recorded In the last 10 days, have yo u been in contact with someone who was confirmed or suspected to have Coronavirus/COVID-19? No / Unsure 07/14/2022 10:48 AM EST documented as of this encounter Plan of Treatment Upcoming Encounters Date Type Department Care Team (Late st Contact Info) Description 11/20/2024 10:30 AM EDT Office Visit [facility] MEDICINE [address] [place], [place] [phone] Minnie Almonte ANP [address] [place] [address] documented as of this encounter Visit Diagnoses Diagnosis Hyperlipidemia associated with type 2 diabetes mellitus (CMS/[facility]) documented in this encounter Care Teams Food Consultant Relationship Specialty Start Date End Date Minnie Almonte ANP [address] [place] [address] PCP - General Family Medicine 04/15/21 documented as of this encounter
--- OUTSIDE RECORDS SUMMARY | 2024-10-16 07:59 | XMS_ITS | Encounter Summary ---
Author Organization [facility], Address [address] [place] [address] Phone Care Team Providers Care Mandolin Repairer Name Role Phone SuzyMinnie Dakota TREJO Primary Care Provider [phone] Encounter Details Date Type Department Care Team (Late st Contact Info) Description 06/23/2024 Orders Only [facility] [address] [place] [address] Bethany Brink PA Chronic kidney disease, stage 2 (mild); Essential (primary) hypertension; Type 2 diabetes mellitus with diabetic chronic kidney disease (HCC) Social History Tobacco Use Types Packs/Day Years [...] Visit [facility] [address] [place] [address] Raffi Kraft MD [address] [place] [address] 11/19/2024 3:50 PM EDT Office Visit [facility] [address] [place] [address] Raffi Kraft MD [address] [place] [address] documented as of this encounter Visit Diagnoses Diagnosis Chronic kidney disease, stage 2 (mild) Essential (primary) hypertension Type 2 diabetes mellitus with diabetic chronic kidney disease (HCC) documented in this encounter Care Teams Mandolin Repairer Relationship Specialty Start Date End Date Mninie Almonte NP [address] [place] [address] PCP - General Nurse Practitioner 10/14/24 documented as of this encounter
--- OUTSIDE RECORDS SUMMARY | 2024-10-16 07:59 | XMS_ITS | Encounter Summary ---
Author Organization [employer] Address [address] [facility] 7[address] [place] [address] Care Team Providers Care Dye Range Operator Name Role Phone Minnie Almonte Primary Care Provider [phone] Encounter Details Date Type Department Care Team ([facility] Contact Info) Description 07/11/2022 Orders Only [facility] MED & PEDS [address] [place], [place] [phone] Gayle Coulter LPN Social History Tobacco Use Types Packs/Day Years [...] Upcoming Encounters Date Type Department Care Team ([facility] Contact Info) Description 11/20/2024 10:30 AM EDT Office Visit [facility] MEDICINE [address] [place] [address] Minnie Almonte ANP [address] [place] [address] documented as of this encounter Visit Diagnoses Not on filedocumented in this encounter Care Teams Dye Range Operator Relationship Specialty Start Date End Date Minnie Almonte ANP [address] [place] [address] PCP - General Family Medicine 04/15/21 documented as of this encounter
--- OUTSIDE RECORDS SUMMARY | 2024-10-16 08:00 | XMS_ITS | Encounter Summary ---
Author Organization [facility] Address [address] [facility] 7[address] [place] [address] Care Team Providers Care Decal Decorator Name Role Phone Minnie Almonte Primary Care Provider [phone] Reason for Visit * Reason Onset Date Comments requesting a call back 11/23/2022 Encounter Details Date Type Department Care Team (Late Contact Info) Description 11/23/2022 Telephone [facility] MEDICINE [address] [place] [address] Minnie Almonte ANP [address] [place] [address] requesting a call back Social History Tobacco Use Types Packs/Day Years [...] AM EDT documented as of this encounter Miscellaneous Notes * Telephone Encounter - Micaela Engel - 11/23/2022 9:41 AM EDT Tc from pt daughter requesting a call back in regards to pt regular 3 month check-up for diabetes. documented in this encounter Plan of Treatment Upcoming Encounters Date Type Department Care Team (Late Contact Info) Description 11/20/2024 10:30 AM EDT Office Visit [facility] MEDICINE [address] [place] [address] Minnie Almonte ANP [address] [place] [address] documented as of this encounter Visit Diagnoses Not on filedocumented in this encounter Care Teams Decal Decorator Relationship Specialty Start Date End Date Minnie Almnote ANP [address] [place] [address] PCP - General Family Medicine 04/15/21 documented as of this encounter
--- OUTSIDE RECORDS SUMMARY | 2024-10-16 08:00 | XMS_ITS | Clinical Summary ---
Author Organization [employer] Address [address] [place] [address] Care Team Providers Care Director Of Marketing [employer] Name Role Phone Minnie Almonte ERICA Primary Care Provider [phone] Allergies Active Allergy Reactions Criticality Noted Date Comments Luis Inhibitors Cough 07/28/2010 COUGH Amitriptyline Other High 07/28/2010 SUICIDAL IDEATION Aspirin Anaphylaxis,Hives High 07/28/2010 Codeine Hives 04/07/2020 Doxycycline Itching,Angioedema High 11/12/2017 ANGIOEDEMA Ibuprofen Anaphylaxis High 07/28/2010 Morphine Itching Low 07/28/2010 Other reaction(s): itchy all over Penicillins Itching,Rash,Swelling Low 07/28/2010 Medications acetic acid (Vosol) 2 % otic solution use three times per day to affected ear, use for up to 1 week 2 Active clonazePAM (KlonoPIN) 1 MG tablet Take 1 tablet by mouth every 8 (eight) hours. Active dextran 70-hypromellose (artificial tears) 0.1-0.3 % ophthalmic solution Instil 1 drop each eye daily Active escitalopram (Lexapro) 10 MG tablet Take 1 tablet by mouth at bed time. 8 Active risperiDONE (RisperDAL) 1 MG tablet Take 1 tablet by mouth. Active Nebulizers (Compressor Nebulizer) [facility] 0 Active Blood Glucose Monitoring Suppl (ONE TOUCH ULTRA 2) w/Device kitIndications:Hyp erlipidemia associated with type 2 diabetes mellitus (CMS/HCC) TEST BLOOD SUGAR 2-3 TIMES A DAY 1 kit 3 Active albuterol (2.5 MG/3ML) 0.083% nebulizer solution INHALE THE CONTENTS OF 1 VIAL VIA NEBULIZER FOUR TIMES A DAY NEEDED 300 mL 3 3 Active Continuous Blood Gluc Motor Vehicle Field Representative (FreeStyle Hardeep 2 [place]) deviceIndications: Type 2 diabetes mellitus with hyperlipidemia (CMS/HCC) ([facility]) 1 each 5 (five) times a day. 1 each 3 Active Continuous Blood Gluc Sensor (FreeStyle Hardeep 2 Sensor) miscIndications:Ty pe 2 diabetes mellitus with hyperlipidemia (CMS/HCC) ([facility]) 1 each every 14 (fourteen) days. 6 each 3 3 Active Alcohol Swabs (Alcohol Prep) pads USE TO TEST BLOOD GLUCOSE TWICE A DAY 100 each 11 3 Active fluticasone (Flonase) 50 MCG/ACT nasal sprayIndications:N on-seasonal allergic rhinitis, unspecified trigger SPRAY ONE SPRAY INTO EACH NOSTRIL TWO TIMES A DAY 16 g 1 4 Active albuterol 108 (90 Base) MCG/ACT inhaler INHALE TWO PUFFS BY MOUTH FOUR TIMES A DAY NEEDED 18 g 1 4 Active losartan (Cozaar) 100 MG tablet TAKE 1 TABLET BY MOUTH ONCE DAILY 90 tablet 3 4 Active pravastatin (Pravachol) 20 MG tablet TAKE 1 TABLET BY MOUTH EVERY EVENING 90 tablet 3 4 Active glimepiride (Amaryl) 1 MG tablet TAKE 1 TABLET BY MOUTH TWO TIMES A DAY BEFORE MEALS (BEFORE BREAKFAST AND SUPPER) 180 tablet 3 4 Active amLODIPine (Norvasc) 10 MG tablet TAKE ONE TABLET BY MOUTH EVERY DAY 90 tablet 3 4 Active acetaminophen (Tylenol) 500 MG tablet TAKE ONE TO TWO TABLETS THREE TIMES A DAY NEEDED. MAX 6 TABLETS PER 24 HOURS 100 tablet 5 4 Active Oyster Shell Calcium 500 MG tabletIndications: Osteoporosis, unspecified osteoporosis type, unspecified pathological fracture presence TAKE ONE TABLET BY MOUTH ONCE DAILY IN THE MORNING 90 tablet 1 4 Active famotidine (Pepcid) 20 MG tablet TAKE ONE TABLET BY MOUTH TWO TIMES A DAY 180 tablet 1 4 Active diphenhydrAMINE (BENADryl) 12.5 MG/5ML liquidIndications: Allergic reaction, subsequent encounter Take 10 mL (25 mg) by mouth every 6 (six) hours if needed for allergies. 240 mL 1 4 Active Continuous Glucose Motor Vehicle Field Representative (FreeStyle Hardeep 2 [place]) deviceIndications: Diabetic polyneuropathy associated with type 2 diabetes mellitus (CMS/HCC),Needle phobia Scan sensor every 8 hours 1 each 4 Active Continuous Glucose Sensor (FreeStyle Hardeep 2 Sensor) miscIndications:Di abetic polyneuropathy associated with type 2 diabetes mellitus (CMS/HCC),Needle phobia Apply 1 sensor every 14 days 2 each 11 4 Active glucose blood (ConjectTouch Ultra) test stripIndications:D iabetic polyneuropathy associated with type 2 diabetes mellitus (CMS/HCC),Needle phobia USE TO TEST BLOOD SUGAR 2 TO 3 TIMES A DAY 100 strip 11 4 Active Lancets (OneTouch Delica Plus [id number]) miscIndications:Hy perlipidemia associated with type 2 diabetes mellitus (CMS/HCC) USE TO TEST BLOOD SUGAR 2 TO 3 TIMES A DAY 100 each 11 4 Active clopidogrel (Plavix) 75 MG tablet TAKE ONE TABLET BY MOUTH EVERY DAY 90 tablet 3 5 Active D3-1000 25 MCG (1000 UT) capsuleIndications :Osteoporosis, unspecified osteoporosis type, unspecified pathological fracture presence TAKE ONE CAPSULE BY MOUTH TWICE A DAY 180 capsule 3 5 Active metFORMIN XR (Glucophage-XR) 500 MG 24 hr tabletIndications: Hyperlipidemia associated with type 2 diabetes mellitus (CMS/HCC) TAKE TWO TABLETS BY MOUTH TWICE A DAY 360 tablet 1 5 Active EPINEPHrine (Epipen) 0.3 MG/0.3ML injection syringeIndications :Aspirin allergy Inject 0.3 mL (0.3 mg) as directed 1 (one) time if needed for anaphylaxis. 2 each 5 Active Active Problems Problem Noted Date Diagnosed Date Aspirin allergy 08/21/2024 Benign prostatic hyperplasia with incomplete bladder emptying 06/20/2023 Shoulder joint pain 04/09/2023 04/09/2023 Osteoporosis, postmenopausal 04/09/2023 Muscle pain 04/09/2023 04/09/2023 Lumbosacral radiculitis 04/09/2023 04/09/20 Enthesopathy of hip region 04/09/202304/09 Displacement of lumbar inter vertebral disc without myelopathy 04/09/2023 04/09/2023 Diabetic neuropathy 04/09/2023 04/09/2023 Knee pain, left 04/09/2023 04/09/2023 Mild persistent asthma 07/14/2022 Chronic kidney disease, stage 2 (mild) 04/09/2023 Coronary artery disease invo lving makah coronary artery of makah heart without angina pectoris 02/17/2016 Overview (10/12/2022): On plavix, TOSHA allergy to ASA Allergic rhinitis 08/19/2015 Depressive disorder 08/19/2015 Essential hypertension 08/19/2015 Hyperlipidemia associated with type 2 diabetes m ellitus 08/19/2015 Foot pain 08/19/2015 Gastroesophageal reflux disease without esophagi tis 08/19/2015 Intermittent low back pain 08/19/2015 Type 2 diabetes mellitus with hyperlipidemia (CM S/HCC) 08/19/2015 Obesity 08/19/2015 Obstructive sleep apnea syndrome 08/19/2015 Osteoporosis 08/19/2015 Encounters Date Type Department Care Team Description 09/05/2024 9:30 AM EDT Clinical Support [address] [id number] Sofia Goldman RN Essential hypertension 09/05/2024 Travel 08/21/2024 10:00 AM EST Office Visit [facility] [address] [place] [phone] Minnie Almonte ANP Type 2 diabetes mellitus with hyperlipidemia (CMS/HCC) (CMS/HCC) (Primary Dx); Aspirin allergy; Hypertension associated with diabetes (CMS/HCC) (CMS/HCC); Asymptomatic hypertensive urgency; Stress 08/21/2024 Travel 08/21/2024 Refill [facility] [address] [place] [address] Minnie Almonte ANP Hyperlipidemia associated with type 2 diabetes mellitus (CMS/HCC) (CMS/HCC) 08/15/2024 Telephone [facility] [address] [place] [address] Tabatha Delgado MA chart prep 08/08/2024 Patient Outreach [facility] [address] [place] [address] Minnie Almonte ANP Pre-visit Planning (SDOH Screening negative and Tobacco screening negative) 07/30/2024 Refill [facility] [address] [place] [address] Minnie Almonte ANP Osteoporosis, unspecified osteoporosis type, unspecified pathological fracture presence from Last 3 Months Immunizations Name Administration Dates Next Due Hep A, Adult 03/26/2015 Hep B, adult 03/26/2015 Influenza High-dose Quadriva lent Preservative Free 04/10/2023 Influenza Injectable Quadriv alant Preservative Free IIV4 MDCK 05/05/2021,03/09/2020,04/07/2019,06/10 Influenza Quadrivalent Adjuvanted 04/03/2022 Influenza injectable quadriv alent IIV4 with preservative 03/24/2015 Influenza injectable quadriv alent preservative free 04/23/2017,05/31/2016 Influenza, IIV3, injectable 05/25/2018,0 07/01/2014,04/20/2010,05/25 Influenza, Split (incl. [place]ele fied surface antigen) 03/10/2015,05/31/2014,03/10/2014,03/26,04/25/2012 Influenza, trivalent, adjuvanted 04/12/2024 Pneumococcal Conjugate PCV 13 09/13/2021 Pneumococcal Conjugate PCV 20 04/10/2023 Pneumococcal Polysaccharide PPSV23 02/23/2009 TD (adult), 2 Lf tetanus tox oid, preservative free, adsorbed 07/20/2023,11/01/2003,06/29/1998 Tdap 10/28/2012 Zoster, Recombinant 08/29/2018,06/10/2018 Zoster, live 12/05/2016 Social History Tobacco Use Types Packs/Day Years Used Date Smoking Tobacco: Former Cigarettes Smokeless Tobacco: Never Alcohol Use Standard Drinks/Week Comments Not Currently 0 (1 standard drink = 0.6 oz pur e alcohol) Housing Stability Answer Date Recorded What is your housing situation today? I have shwetha melton 08/08/[address] you li ve. Do you have problems with any of the following? None of the above 08/08/2024 Food Insecurity Answer Date Recorded Within the past 12 months, y ou worried that your food would run out before you got money to buy more: Never True 08/08/2024 Within the past 12 months,th e food you bought just didn't last and you didn't have enough money to get more: Never True Transportation Answer Date Recorded In the past 12 months, has l ack of transportation kept you from medical appts, meetings, work or from getting things needed for daily living? No 08/08/2024 Utilities Answer Date Recorded In the past 12 months, has t he electric, gas, oil or water company threatened to shut off services in your home? No 08/08/2024 Internet Access Answer Date Recorded Internet Access Q1 Yes 08/08/2024 Internet Access Q2 Not on file 08/08/2024 Sex and Gender Information Value Date Recorded Sex Assigned at Male 04/24/2022 10:14 AM EDT Legal Sex Male 10:14 AM EDT Gender Identity Male 04/24/2022 10:14 AM EDT Sexual Orientation Choose not to disclose 2021 10:14 AM EDT Last Filed Vital Signs Vital Sign Reading Time Taken Comments Blood Pressure 140/84 09/05/2024 9:37 AM EDT Pulse 101 09/05/2024 9:37 AM EDT Temperature 36.9 ??C (98.5 ??F) 09/05/2024 9:37 AM ED T Respiratory Rate 16 09/05/2024 9:37 AM EDT Oxygen Saturation 98% 09/05/2024 9:37 AM EDT Inhaled Oxygen Concentration - - Weight 97.7 kg (215 lb 6.4 oz) 08/21/2024 10:17 AM EST Height 167.6 cm (5' 6 ) 02/01/2024 9:24 AM EDT Body Mass Index 34.77 02/01/2024 9:24 AM EDT Plan of Treatment Upcoming Encounters Date Type Department Care Team (Late st Contact Info) Description 11/20/2024 10:30 AM EDT Office Visit [facility] [address] [place] [address] Minnie Almonte ANP [address], [place] [id number] Health Maintenance Due Date Last Done Comments CT Colonography 1956 Depression Screening 1955 FIT DNA/Cologuard 1955 FIT 1956 FOBT 1955 Sigmoidoscopy 1955 Hepatitis B Vaccines (2 of 3 - 19+ 3-dose series) 04/23/2015 03/26/2015 RSV Patients and Patients Aged 60 years or older (1 - Risk 60-74 years 1-dose series) 2016 Lung Cancer Screening 10/12/2022 Eye Exam 10/23/2022 COVID-19 Vaccine ( season) 2024 05/25/2022, 05/27/2021, 11/24/2020, Additional history exists Diabetes: Urine Protein Screening 06/30/2024 06/30/2023, 09/05/2021, 03/27/2020, Additional history exists Diabetes: Foot Exam 07/20/2024 07/20/2023, 07/20/2023, 07/20/2023, Additional history exists Diabetes: Hemoglobin A1C 11/18/2024 025, 05/08/2024, 04/05/2024, Additional history exists Lipid Panel 04/05/2025 04/05/2024, 11/2023, 01/07/2022, Additional history exists SDOH Screening 08/08/2025 08/08/2024 Alcohol/Substance Use Screening 08/21/2025 08/21/2024 Tobacco Screening 09/20/2025 09/20/2024 DTaP/Tdap/Td Vaccines (3 - Td or Tdap) 07/20/2033 07/20/2023, 10/28/2012, 11/01/2003, Additional history exists Colonoscopy 04/29/2035 01/22/2019 Colorectal Cancer Screening 04/29/2035 Hepatitis A Vaccines Aged Out 03/26/2015 No long er eligible based on patient's age to complete this topic Zoster Vaccines Completed 08/29/2018, 05/25, 12/05/2016 Hepatitis C Screening Completed 03/25/2023 Pneumococcal Vaccine: 50+ Years Completed 04/10/2023, 09/13/2021, 02/23/2009 Influenza Vaccine Completed 04/12/2024, , 04/10/2023, Additional history exists HIB Vaccines Aged Out No longer eligi ble based on patient's age to complete this topic HPV Vaccines Aged Out No longer eligi ble based on patient's age to complete this topic IPV Vaccines Aged Out No longer eligi ble based on patient's age to complete this topic Meningococcal Vaccine Aged Out No deuce floyd eligible based on patient's age to complete this topic RSV under 20 months Aged Out No longe r eligible based on patient's age to complete this topic Rotavirus Vaccines Aged Out No longer eligible based on patient's age to complete this topic Procedures Procedure Name Priority Date/Time Associated Diagnosis Comments POCT GLYCATED HEMOGLOBIN, TOTAL Routine 08/21/2024 10:39 AM EST Type 2 diabetes mellitus with hyperlipidemia (CMS/HCC) (CMS/HCC) POCT GLUCOSE Routine 08/21/2024 10:32 AM EST Type 2 diabetes mellitus with hyperlipidemia (CMS/HCC) (CMS/HCC) LIPID PANEL, STANDARD Routine 04/05/2024 7:32 AM EDT ALBUMIN, RANDOM URINE W/CREATININE Routine 06/30/2023 8:49 AM EST Type 2 diabetes mellitus with hyperlipidemia (CMS/HCC) Essential hypertension HEPATITIS PANEL, GENERAL Routine 03/25/2023 10:19 AM EDT HM COLONOSCOPY Routine 01/22/2019 from Last 3 Months or Most Recently Relevant to Health Maintenance Results * (ABNORMAL) POCT HGB A1C (08/21/2024 10:39 AM EST) Hemoglobin A1C 8.3(A) 4.0 - 6.0 % QC Media Lot # [id number] Lot# Expiration Date ,860 Blood 08/21/2024 10:3 9 AM EST [facility] POINT OF CARE TEST ENTER/EDIT OR DERABLES Final Result * POCT Glucose (08/21/2024 10:32 AM EST) Glucose Blood, POC 178 60 - 200 mg/dL QC Media Lot # [id number] Lot# Expiration Date [id number] Blood Capillary blood specimen / Unknown 08/21/2024 10:32 AM EST [facility] Almonte [facility] POINT OF CARE TEST ENTER/EDIT OR DERABLES Final Result * (ABNORMAL) Lipid Panel, Standard (04/05/2024 7:32 AM EDT) Triglycerides 157(H) <150 mg/dL [facility] Comment:Desirable Triglyceri de: less than 150 mg/dLBorderline High Triglyceride 150-199 mg/dLHigh Triglyceride: 200-499 mg/dLVery High Triglyceride: greater than or equal to 5OO mg/dL Cholesterol 140 <200 mg/dL [facility] Comment:Desirable Cholestero l: less than 200 mg/dLBorderline High Cholesterol: 200-239 mg/dLHigh Cholesterol: greater than 239 mg/dL LDL Cholesterol Calculated 63 <100 mg/dL [facility] Comment:Desirable LDL: less than 100 mg/dLNear Optimal/Above Optimal LDL: 110- 129 mg/dLBorderline High LDL: 130-159 mg/dLHigh LDL: 160-189 mg/dLVery High LDL: greater than or equal to 190 mg/dL HDL Cholesterol 46 >40 mg/dL [facility] Comment:Desirable HDL: great er than 40 mg/dL Note: This HDL assay may give artificially low results in patients with liver disease. 04/05/2024 7:32 AM EDT 04/05/2024 7:32 AM EDT [facility] External Data Provider LAB BLOOD ORDERAB LES Final Result [facility] [address] [place] [phone] * (ABNORMAL) Albumin, Random Urine W/Creatinine (06/30/2023 8:49 AM EST) Creatinine, Urine 73.47 mg/dL [facility] Microalbumin Urine 135.0 mg/L [facility] Microalbum Creatinine Ratio Ur 183.7(H) <30 ug/mg cr [facility] Comment:Albumin/Creatinine R atio Reference Ranges: Normal: < 30 ug/mg creatinine Microalbuminuria: 30 - 300 ug/mg creatinineClinical Albuminuria: > 300 ug/mg creatinine Urine 06/30/2023 8:49 AM EST 06/30/2023 9:53 AM EST [facility] LAB URINE ORDERABLES Final Resul t Performing Organization Address [facility] de Phone Number [facility] [address] [place] [phone] * (ABNORMAL) Hepatitis Panel, General (03/25/2023 10:19 AM EDT) Pathologist [facility] Hepatitis A IgM Nonreactive Nonreactive [facility] Comment:IgM antibodies to DENNEY V not detected; does not exclude earlyacute or recovered HAV infection. ~Hepatitis B Surface Antibody REACTIVE Nonreactive [facility] Comment:REACTIVE: > 11.99 mI U/mL Hepatitis B Core Antibody Reactive Nonreactive [facility] Comment:Presumptive evidence of anti-HBc. Hepatitis C Antibody Reactive(A) Nonreactive [facility] Comment:Presumptive evidence of antibodies to HCV. Hepatitis B Surface Ag Negative Negative [facility] 03/25/2023 10:1 9 AM EDT 03/25/2023 10:22 AM EDT [facility] External Provider LAB BLO OD ORDERABLES Final Result Performing Organization Address [facility] de Phone Number [facility] [address] [place] [phone] * Hm Colonoscopy (01/22/2019) Colonoscopy Normal Normal Comment:repeat in 5 years us Historical Provider HEALTH MAINTENANCE Final Result from Last 3 Months or Most Recently Relevant to Health Maintenance Insurance - [employer] Care Teams Director Of Marketing [employer] Relationship Specialty Start Date End Date Minnie Almonte ANP [address] [place] [phone] PCP - General Family Medicine 04/15/21
[2024-10-16 08:28] LABS: Estimated Average Glucose 189 mg/dL; Hemoglobin A1C 237.6584 umol/L; Hemoglobin A1c % 8.2 % (<6.0); Total Hemoglobin (HGBA1C) 3595.4955 umol/L
[2024-10-16 08:37] LABS: Anion Gap 14 (12-20); Blood Urea Nitrogen 16 mg/dL (9-16); Calcium 9.7 mg/dL (8.4-10.2); Carbon Dioxide 24 mmol/L (22-29); Chloride 105 mmol/L (96-108); Estimated Glomerular Filt Rate > 60; Glucose Random 232 mg/dL (60-115); Sodium 139 mmol/L (135-145)
[2024-10-16 09:05] LABS: Creatinine Urine 38.18 mg/dL; Microalbum/Creatinine Ratio Ur 411.2 ug/mg cr (<30)
== END 2024-10-16 07:53 | disposition home or self-care (01) ==
LOC: HO.LAB 07:52
PROVIDERS: PCP Nurse Practitioner Primary Care; Visit Provider Internal Medicine Nephrology
DX: I10 Essential (primary) hypertension (principal); Z13.1 Encounter for screening for diabetes mellitus
CPT/HCPCS: 36415; 80048; 82043; 82570; 83036

== ENCOUNTER 2024-12-20 09:36 | Outpatient (REF) | payer OTHER, SELFPAY ==
--- NOTE | ~2024-12-20 | MR_ITS ---
EXAMINATION: MRI LEFT KNEE WITHOUT CONTRAST HISTORY: r/o meniscal tear COMPARISON: There are no prior studies available for comparison. TECHNIQUE: Coronal T1 and fat-suppressed proton density, sagittal proton density and fat-suppressed proton density, and axial fat suppressed T2 weighted MR images of the left knee were obtained. FINDINGS: Bone marrow: Bone marrow signal intensity is normal. Joint effusion: There is a small joint effusion. Car's cyst: There is a small Car's cyst. Articular cartilage: Intact Anterior cruciate ligament: Intact Posterior cruciate ligament: Intact Medial collateral ligament: Intact Lateral collateral ligament: Intact Medial meniscus: Intact Lateral meniscus: Intact Flexor mechanism: There is focal increased T2 signal intensity in the head of the gastrocnemius muscle consistent with a partial tear. There is edema in the distal popliteus tendon, suggestive of a partial tear. Quadriceps tendon: Intact Patellar tendon: Intact Patellar retinacula: Intact MR/MR knee LT wo con IMPRESSION: Small joint effusion and small Car's cyst. Findings suggestive of partial tears of the head of the gastrocnemius muscle and the popliteus tendon.. Electronically signed by: Homero Betts MD 12/22/2024 09:53 AM EDT
[2024-12-20 10:24] LABS: Estimated Average Glucose 174 mg/dL; Hemoglobin A1c % 7.7 % (<6.0); Total Hemoglobin (HGBA1C) 3572.3984 umol/L
[2024-12-20 11:06] LABS: Cholesterol 121 mg/dL (<200); HDL Cholesterol 44 mg/dL (>40); LDL Cholesterol Calculated 56 mg/dL (<100); Triglycerides 108 mg/dL (<150)
== END 2024-12-20 09:37 | disposition home or self-care (01) ==
LOC: HO.MRI 09:36
PROVIDERS: Absent Provider Registered Nurse; PCP Nurse Practitioner Primary Care; Visit Provider Nurse Practitioner Primary Care
DX: M25.562 Pain in left knee (principal); G89.29 Other chronic pain; Z79.899 Other long term (current) drug therapy
CPT/HCPCS: 36415; 73721; 80061; 83036

== ENCOUNTER → 2024-12-20 09:41 | Outpatient (BNV) | payer OTHER, SELFPAY | PROVIDERS: Absent Provider Registered Nurse; PCP Nurse Practitioner Primary Care; Visit Provider Radiology Diagnostic Radiology | DX: M25.462 Effusion, left knee (principal); M71.22 Synovial cyst of popliteal space [Baker], left knee | CPT/HCPCS: 73721 ==

== ENCOUNTER 2024-12-31 10:58 | Outpatient (AMB) | payer OTHER, SELFPAY ==
--- NOTE | 2024-12-31 11:13 | A.OFFVIS_ITS ---
Vital Signs 12/31/24 11:14 Height 5 ft 6 in Weight 211 lb 10.3 oz BMI 34.2 BP 120/80 Blood Pressure Location Lt brachial Position Sitting Pulse 76 Intake Visit Reasons: 2 year follow up Intake Note: 2 year follow-up with ekg Supervisor Throwing Department Required: Yes Supervisor Throwing Department Services: Supervisor Throwing Department Offered & Declined Computer Network Support Specialist: Computer Network Support Specialist Present Accompanied by: Grand Child Allergies aspirin Allergy (Unknown, Verified 07/10/24 07:54) SWELLING diphenhydramine (From Benadryl) Allergy (Unknown, Verified 07/10/24 07:54) RASH ibuprofen Allergy (Unknown, Verified 07/10/24 07:54) SWELLING indomethacin (From INDOCIN) Allergy (Unknown, Verified 07/10/24 07:54) UNKNWON NSAIDS (Non-Steroidal Anti-Inflamma Allergy (Unknown, Verified 07/10/24 07:54) RASH oxycodone Allergy (Unknown, Verified 07/10/24 07:54) SWELLING penicillin V Allergy (Unknown, Verified 07/10/24 07:54) Unknown Penicillins Allergy (Unknown, Verified 07/10/24 07:54) RASH tolmetin (TOLMETIN) Allergy (Unknown, Verified 07/10/24 07:54) UNKNOWN amitriptyline (From Elavil) Allergy (Verified 07/10/24 07:54) Unknown diclofenac Allergy (Verified 07/10/24 07:54) Unknown fenoprofen Allergy (Verified 07/10/24 07:54) Unknown halofantrine (From Halfan) Allergy (Verified 07/10/24 07:54) Unknown ketoprofen Allergy (Verified 07/10/24 07:54) Unknown meclofenamic acid (meclofenamate sodium) Allergy (Verified 07/10/24 07:54) Unknown mefenamic acid (From Ponstel) Allergy (Verified 07/10/24 07:54) Unknown metformin Allergy (Verified 07/10/24 07:54) Unknown morphine Allergy (Verified 07/10/24 07:54) Unknown naproxen Allergy (Verified 07/10/24 07:54) Unknown phenylbutazone Allergy (Verified 07/10/24 07:54) Unknown piroxicam (From Feldene) Allergy (Verified 07/10/24 07:54) Unknown sulindac Allergy (Verified 07/10/24 07:54) Unknown Codeine Phosphate Allergy (Unknown, Uncoded 05/03/24 09:04) Unknown Medication List - Last Reconciled 12/31/24 by Jeevan Marte MD acetaminophen 500 mg PO Q8-10H PRN albuterol sulfate 90 mcg/actuation 2 puffs inhalation Q4-6H PRN albuterol sulfate 2.5 mg inhalation Q4-6H PRN alfuzosin ER 10 mg PO DAILY 90 days amlodipine (Norvasc) 10 mg PO DAILY budesonide 32 mcg/actuation 2 sprays intranasal DAILY cholecalciferol (vitamin D3) 25 mcg PO DAILY clonazepam (Klonopin) 1 mg PO BID clopidogrel 75 mg PO DAILY 90 days diphenhydramine HCl 25 mg PO TID escitalopram oxalate 10 mg PO DAILY famotidine 20 mg PO DAILY losartan 100 mg PO DAILY metformin ER 500 mg PO DAILY montelukast 10 mg PO QPM pravastatin 20 mg PO BEDTIME risperidone (Risperdal) 1 mg PO DAILY HPI Comments Details: Talha comes for follow-up accompanied by his granddaughter. Patient's main current issue over the last 3 weeks is it back pain and hip pain. He said he injured his back in his currently not been able to walk as much. But high prior to that he said he was very functional and walking regularly without any significant exertional chest pain or shortness of breath. Denies any orthopnea, PND, leg edema. He takes all his medications but sometimes he does not when he is sick. He also is not consistently using his CPAP it appears. Complains of chronic cough with productive phlegm. Being followed by Pulmonary. He said he can not tolerate montelukast and has been not taking it. Denies any prolonged palpitation irregular heartbeat. [facility] Medical History Asthma SRINATH (obstructive sleep apnea) Osteopenia Tubular adenoma of colon History of hepatitis C GERD (gastroesophageal reflux disease) Hyperlipidemia Personal history of nicotine dependence Diabetes mellitus HTN (hypertension) Hypertensive heart disease CAD (coronary artery disease) Surgical History History of hand surgery History of endoscopy History of hip surgery History of meniscectomy of right knee History of cardiac cath History of colonoscopy History of blepharoplasty Social History Patient Tobacco Use Status: Former Tobacco user Years Smoked: (former smoker, onset 15yo, 1ppd x 41yrs, 40pyh, quit ~2011) Current occupational status: disabled Current occupation: rt hand Review of Systems Const Denies chills, Denies fatigue, Denies fever(s), Denies frequent falls, Denies weakness, Denies weight gain and Denies weight loss ENT Denies dizziness Card Denies chest pain, Denies leg edema, Denies lightheadedness, Denies palpitations, Denies dyspnea, Denies dyspnea on exertion, Denies orthopnea and Denies other (loss of consciousness) Resp Denies cough, Denies dyspnea and Denies dyspnea on exertion GI Denies hematochezia and Denies change in stool character Musc Denies abnormal gait, Denies muscle weakness, Denies numbness, Denies radiating pain into limb and Denies tingling Neuro Denies abnormal gait, Denies dizziness, Denies frequent falls, Denies numbness, Denies tingling and Denies weakness Endo Denies fatigue and Denies palpitations Physical Exam Vital Signs: Last Vital Signs Pulse 76 12/31/24 11:14 BP 120/80 12/31/24 11:14 BMI result Body Mass Index 34.2 Const General: cooperative, comfortable, alert and awake Nutritional Appearance: obese Orientation/consciousness: patient oriented x3 Limitations: no limitations Neck Neck: Yes trachea midline, Yes supple and Yes no JVD Resp Effort & Inspection: normal respiratory effort Auscultation: clear to auscultation bilaterally Cardio Jugular venous distension: no JVD Palpation: normal PMI Rate: regular rate Rhythm: regular rhythm Heart sounds: S1 normal heart sound present, S2 normal heart sound present and Other heart sounds present ( S4 present) GI Inspection: Yes obesity Auscultation: normal bowel sounds Skin General skin exam: no rashes or lesions noted Neuro General: patient oriented x3 and no focal motor deficits Extrem General: Yes no clubbing, cyanosis or edema Psych Appearance: grossly normal Affect: Sad affect present and Anxious affect present Office Procedures EKG Details: EKG shows normal sinus rhythm with some baseline wander but otherwise nonspec ific T-wave changes [id number], Complete Assessment & Plan Assessment & Plan (1) Hypertensive heart disease: Code(s): I11.9 - Hypertensive heart disease without heart failure Category: Medical Plan: Hypertensive heart disease in his elderly gentleman without any signs or symptoms of heart failure. Importance of aggressive blood pressure control was discussed with him. Also importance of taking medication was discussed. He will continue the same. Also importance of CPAP therapy was discussed. Advised to monitor blood pressure and maintain a log. Low-salt diet was discussed. Signs and symptoms of heart failure were discussed. Continue participate in weight loss program. (2) CAD (coronary artery disease): Code(s): I25.10 - Atherosclerotic heart disease of [place] coronary artery without angina pectoris Category: Medical Plan: Coronary disease with prior reported myocardial infarction. Currently on clopidogrel therapy. Currently well optimized from blood pressure perspective. Importance of good blood pressure control was discussed. Continue aggressive diabetes management goal hemoglobin A1c less than 7%. Goal LDL less than 70 mg/dL. Encouraged to participate in weight loss program regular physical activ ity. Will follow up in the clinic in 2 years time, sooner PRN. Will obtain echocardiogram to follow up on hypertensive heart disease. Thank you for allowing me to partake in his care Orders: Orders CA echo transthoracic complete Today I11.9 - Hypertensive heart disease without heart failure Coding Level of Care Code Est Pt Level 4 (39087) Complex EM visit Add On G2211 Diagnoses Hypertensive heart disease I11.9 CAD (coronary artery disease) I25.10 CPT Codes EKG - CPT: 44511-[id number], Complete ([id number])
[2024-12-31 11:14] VITALS: BP 120/80; PULSE 76; BMI 34.2
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
--- OUTSIDE RECORDS SUMMARY | 2024-12-31 12:07 | XMS_ITS | Clinical Summary ---
Author Organization [facility] Address [address] [place] [address] Care Team Providers Care Bus Company Manager Name Role Phone Poonam Garcia MD Primary Care Provider [phone] Social History Tobacco Use Types Packs/Day Years [...] Zoster (Shingles) Vaccine (1 of 2) 2006 COVID-19 Vaccine ( - 2023-2 5 season) 2024 Influenza Vaccine 01/23/2025 RSV Vaccine 60 years and old er and Patients (1 - 1-dose 75+ series) 08/27/2031 Hepatitis B Vaccines Aged Out No long er eligible based on patient's age to complete this topic Insurance MEDICAID OUT OF [place] [facility] Care Teams Bus Company Manager Relationship Specialty Start Date End Date Poonam Garcia MD PCP - General Surgery, General 11/06/19
--- OUTSIDE RECORDS SUMMARY | 2024-12-31 12:07 | XMS_ITS | Encounter Summary ---
Author Organization [facility], Address [address] [place] [address] Phone Care Team Providers Care Finance Accounting Internship Name Role Phone Minnie Almonte NP Primary Care Provider [phone] Encounter Details Date Type Department Care Team (Late Contact Info) Description 04/27/2022 Documentation Only [facility] [address] [place] [address] Bethany Brink PA [address] [place] [address] Social History Tobacco Use Types Packs/Day Years [...] Department Care Team (Late Contact Info) Description 01/13/2025 10:20 AM EDT Office Visit [facility] [address] [place] [address] Raffi Kraft MD [address] [place] [address] [place] [address] documented as of this encounter Visit Diagnoses Not on filedocumented in this encounter Care Teams Finance Accounting Internship Relationship Specialty Start Date End Date Minnie Almonte NP [address] [place] [phone] PCP - General Nurse Practitioner 10/14/24 documented as of this encounter
--- OUTSIDE RECORDS SUMMARY | 2024-12-31 12:07 | XMS_ITS | Encounter Summary ---
Author Organization [employer] Address [address] [facility] [address] [place] [address] Care Team Providers Care Superintendent Overhead Distribution Name Role Phone Minnie Almonte ERICA Primary Care Provider [phone] Coni Singh PharmD Unavailable [phone] Encounter Details Date Type Department Care Team ([facility] Contact Info) Description 07/11/2022 Orders Only [facility] MED & PEDS [address] [place] [address] Gayle Coulter LPN Social History Tobacco Use [...] Upcoming Encounters Date Type Department Care Team ([facility] Contact Info) Description 01/07/2025 10:00 AM EDT Medication Management [facility] MEDICINE [address] [place], [place] [phone] Coni Singh, PharmD [address] [place], [place] [phone] 02/13/2025 1:30 PM EDT Telemedicine [facility] MEDICINE [address] [place] [address] Minnie Almonte ANP [address] [place] [address] documented as of this encounter Visit Diagnoses Not on filedocumented in this encounter Care Teams Superintendent Overhead Distribution Relationship Specialty Start Date End Date Minnie Almonte ANP [address] [place] [id number] PCP - General Family Medicine 04/15/21 Coni Singh, Jaimee [address] [place] [phone] Pharmacist Internal Medicine 12/09/24 documented as of this encounter
== END 2024-12-31 11:45 | disposition home or self-care (01) ==
LOC: HO.HCS 10:58
PROVIDERS: PCP Nurse Practitioner Primary Care; Visit Provider Internal Medicine Cardiovascular Disease
DX: I11.9 Hypertensive heart disease without heart failure (principal); I25.10 Atherosclerotic heart disease of native coronary artery without angina pectoris
CPT/HCPCS: 93010; 99214; G2211

== ENCOUNTER → 2024-12-31 10:58 | Outpatient (BNVA) | payer OTHER, SELFPAY | PROVIDERS: PCP Nurse Practitioner Primary Care; Visit Provider Internal Medicine Cardiovascular Disease | DX: I11.9 Hypertensive heart disease without heart failure (principal) | CPT/HCPCS: 93005; 99212 ==

== ENCOUNTER 2025-01-08 08:44 | Outpatient (AMB) | payer OTHER, SELFPAY ==
--- NOTE | 2025-01-08 08:30 | MHC.OFFVIS ---
Intake Visit Reasons: Follow Up 6mo Microbiology Teacher Required: No Accompanied by: Daughter Allergies aspirin Allergy (Unknown, Verified 01/08/25 08:30) SWELLING diphenhydramine (From Benadryl) Allergy (Unknown, Verified 01/08/25 08:30) RASH ibuprofen Allergy (Unknown, Verified 01/08/25 08:30) SWELLING indomethacin (From INDOCIN) Allergy (Unknown, Verified 01/08/25 08:30) UNKNWON NSAIDS (Non-Steroidal Anti-Inflamma Allergy (Unknown, Verified 01/08/25 08:30) RASH oxycodone Allergy (Unknown, Verified 01/08/25 08:30) SWELLING penicillin V Allergy (Unknown, Verified 01/08/25 08:30) Unknown Penicillins Allergy (Unknown, Verified 01/08/25 08:30) RASH tolmetin (TOLMETIN) Allergy (Unknown, Verified 01/08/25 08:30) UNKNOWN amitriptyline (From Elavil) Allergy (Verified 01/08/25 08:30) Unknown diclofenac Allergy (Verified 01/08/25 08:30) Unknown fenoprofen Allergy (Verified 01/08/25 08:30) Unknown halofantrine (From Halfan) Allergy (Verified 01/08/25 08:30) Unknown ketoprofen Allergy (Verified 01/08/25 08:30) Unknown meclofenamic acid (meclofenamate sodium) Allergy (Verified 01/08/25 08:30) Unknown mefenamic acid (From Ponstel) Allergy (Verified 01/08/25 08:30) Unknown metformin Allergy (Verified 01/08/25 08:30) Unknown morphine Allergy (Verified 01/08/25 08:30) Unknown naproxen Allergy (Verified 01/08/25 08:30) Unknown phenylbutazone Allergy (Verified 01/08/25 08:30) Unknown piroxicam (From Feldene) Allergy (Verified 01/08/25 08:30) Unknown sulindac Allergy (Verified 01/08/25 08:30) Unknown Codeine Phosphate Allergy (Unknown, Uncoded 05/03/24 09:04) Unknown Medication List - Last Reconciled 01/08/25 by Merle Middleton, PLASTIC EYE TECHNICIAN acetaminophen 500 mg PO Q8-10H PRN albuterol sulfate 90 mcg/actuation 2 puffs inhalation Q4-6H PRN albuterol sulfate 2.5 mg inhalation Q4-6H PRN alfuzosin ER 10 mg PO DAILY 90 days amlodipine (Norvasc) 10 mg PO DAILY budesonide 32 mcg/actuation 2 sprays intranasal DAILY cholecalciferol (vitamin D3) 25 mcg PO DAILY clonazepam (Klonopin) 1 mg PO BID clopidogrel 75 mg PO DAILY 90 days diphenhydramine HCl 25 mg PO TID escitalopram oxalate 10 mg PO DAILY famotidine 20 mg PO DAILY losartan 100 mg PO DAILY metformin ER 500 mg PO DAILY montelukast 10 mg PO QPM pravastatin 20 mg PO BEDTIME risperidone (Risperdal) 1 mg PO DAILY HPI Comments Details: 68-yr-old male presents for follow-up televideo visit for f/u of mild SRINATH.. Pt is accompanied by his dtr. 09/27/2023, HST, which revealed: mild SRINATH w/ AHI 12/hr and O2 jose angel 74%. Patient states he has not been able to consistently use his APAP as he has been having allergy symptoms, including congestion and cough. His daughter feels that he likely has seasonal allergies. She notes that herself and her children also have significant environmental/seasonal allergies. When he does use the machine, he does sleep and feels better during the day. [address], [facility] Email: [email or web address] Compliance Report Usage 10/02/2024 - 12/30/2024 Overall usage 6% Usage greater than 4 hours 6% Average usage days used 4 hour 6 minutes AirSense 10 AutoSet Serial number [id number] Mode APAP 5-20 cm H2O with EPR level 2 Maximum pressure: 10.9 cm H2O Median Leaks: 5 L/min Residual events per hour (AHI): 0.2 per hour [facility] Medical History Asthma SRINATH (obstructive sleep apnea) Osteopenia Tubular adenoma of colon History of hepatitis C GERD (gastroesophageal reflux disease) Hyperlipidemia Personal history of nicotine dependence Diabetes mellitus HTN (hypertension) Hypertensive heart disease CAD (coronary artery disease) Surgical History History of hand surgery History of endoscopy History of hip surgery History of meniscectomy of right knee History of cardiac cath History of colonoscopy History of blepharoplasty Social History Patient Tobacco Use Status: Former Tobacco user Years Smoked: (former smoker, onset 15yo, 1ppd x 41yrs, 40pyh, quit ~2011) Current occupational status: disabled Current occupation: rt hand Physical Exam Const General: no acute distress Orientation/consciousness: patient oriented x3 Neuro General: patient oriented x3 Psych Mental Status: mental status grossly normal Speech and movement: Clear speech present Attitude: cooperative Telehealth Telehealth Telehealth Platform: [employer] Location of provider rendering services: practice address Location of patient: address on file Patient Identification confirmed using: Name, : Yes Telehealth method: video Patient verbally consented to treatment: Yes Patient verbally consented to billing insurance company: Yes Patient informed of any privacy concerns related to visit: Yes Minutes spent on Phone/Video with Pt.: 12 Assessment & Plan Assessment & Plan (1) Mild obstructive sleep apnea: Comment: 10/02/23: HST AHI 12/hr w/ O2 jose angel 74% Code(s): G47.33 - Obstructive sleep apnea (adult) (pediatric) Category: Medical (2) Allergic rhinitis: Code(s): J30.9 - Allergic rhinitis, unspecified Category: Medical Qualifiers: Allergic rhinitis trigger: unspecified Allergic rhinitis seasonality: unspecified Qualified Code(s): J30.9 - Allergic rhinitis, unspecified Plan As patient has upper respiratory/allergy symptoms, which are interfering with his ability to use his APAP machine, we will request ENT consult to assess for alternate sleep apnea treatments as well as for allergy evaluation. Daughter will confirm with her personal zinc plate grainer, to see if you would be open addition patient for allergy evaluation, and she will let us know if they can. In the meantime trial adding azelastine nasal spray 2 sprays at bedtime following his budesonide nasal spray, may use every 12 hours as needed. Reviewed azelastine nasal spray technique would daughter patient. Sleep with head elevated as tolerated. Encourage patient to use APAP 5-20 cmH2O as tolerated, with the goal of using greater than 4 hours a night, as he does have good clinical effect from use. Once patient is able to use CPAP more consistently, consider nocturnal pulse oximetry reading x1 night to assess effectiveness of APAP on reducing degree of nocturnal hypoxemia. Clean and change PAP supplies routinely. Continue to use distilled water in CPAP water reservoir tubing. Pt to notify us or respiratory company w/ any issues or concerns r/t his PAP machine/use. follow-up in 6-12 months or sooner prn. Orders: Referrals Ear/Nose/Throat Referral G47.33 - Obstructive sleep apnea (adult) (pediatric), J30.9 - Allergic rhinitis, unspecified Medications: New azelastine administer into each nostril 2 sprays intranasal Q12H 30 mL 1RF 30 days Coding Level of Care Code Tele Est Pt Level 3 (83326) Diagnoses Mild obstructive sleep apnea G47.33 Allergic rhinitis, unspecified seasonality, unspecified trigger J30.9 Allergic rhinitis trigger: unspecified Allergic rhinitis seasonality: unspecified
--- OUTSIDE RECORDS SUMMARY | 2025-01-08 08:53 | XMS_ITS | Encounter Summary ---
Author Organization [employer] Address [address] [place] [address] Care Team Providers Care Diesel Service Technician Name Role Phone Minnie Almonte ERICA Primary Care Provider [phone] Coni Singh PharmD Unavailable Encounter Details Date Type Department Care Team ([facility] Contact Info) Description 07/11/2022 Orders Only [facility] CHC MED & PEDS [address] [place] [address] Gayle Coulter LPN Social History Tobacco Use [...] Upcoming Encounters Date Type Department Care Team ([facility] Contact Info) Description 02/02/2025 9:00 AM EDT Medication Management [facility] MEDICINE [address] [place] [address] Coni Singh, PharmD [address] [place], [place] [phone] 02/13/2025 1:30 PM EDT Telemedicine [facility] MEDICINE [address] [place] [address] Minnie Almonte ANP [address] [place] [address] documented as of this encounter Visit Diagnoses Not on filedocumented in this encounter Care Teams Diesel Service Technician Relationship Specialty Start Date End Date Minnie Almonte ANP [address] [place] [id number] PCP - General Family Medicine 04/15/21 Coni Singh, Jaimee [address] [place] [phone] Pharmacist Internal Medicine 12/09/24 documented as of this encounter
--- OUTSIDE RECORDS SUMMARY | 2025-01-08 08:53 | XMS_ITS | Clinical Summary ---
Author Organization [facility] Address [address] [place] [address] Care Team Providers Care Engine Buildup Mechanic Name Role Phone Poonam Garcia MD Primary Care Provider [phone] Social History Tobacco Use Types Packs/Day Years [...] this topic Insurance MEDICAID OUT OF STATE [facility] Care Teams Engine Buildup Mechanic Relationship Specialty Start Date End Date Poonam Garcia MD PCP - General Surgery, General 11/06/19
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
== END 2025-01-08 09:56 | disposition home or self-care (01) ==
PROVIDERS: PCP Nurse Practitioner Primary Care; Visit Provider Nurse Practitioner Family
DX: G47.33 Obstructive sleep apnea (adult) (pediatric) (principal); J30.9 Allergic rhinitis, unspecified
CPT/HCPCS: 99213

== ENCOUNTER 2025-01-21 08:04 | Outpatient (REF) | payer OTHER, SELFPAY ==
--- NOTE | ~2025-01-21 | XR_ITS ---
EXAMINATION: XR KNEE, LEFT CLINICAL INFORMATION: M25.562 - Pain in left knee COMPARISON: Correlated to MRI dated December 20, 2024. TECHNIQUE: AP view of the distended position both knees. Lateral and sunrise view of the left knee. FINDINGS: Joint space narrowing involving mostly the medial compartment. Mild sclerosis along the tibial plateau. No acute cortical disruption or gross malalignment, left knee. No suprapatellar bursa joint left knee. No subcutaneous emphysema. No metallic or radiopaque foreign body XR/XR knee LT 3V IMPRESSION: Mild medial compartment osteoarthrosis. Electronically signed by: Ruddy Licea MD 01/21/2025 01:41 PM EDT
--- OUTSIDE RECORDS SUMMARY | 2025-01-22 08:10 | XMS_ITS | Clinical Summary ---
Author Organization [facility] Address [address] [place] [address] Care Team Providers Care Truck Trailer Final Inspector Name Role Phone Poonam Garcia MD Primary Care Provider [phone] Social History Tobacco Use Types Packs/Day Years [...] this topic Insurance MEDICAID OUT OF STATE [facility] [place] Care Teams Truck Trailer Final Inspector Relationship Specialty Start Date End Date Poonam Garcia MD PCP - General Surgery, General 11/06/19
--- OUTSIDE RECORDS SUMMARY | 2025-01-22 08:10 | XMS_ITS | Encounter Summary ---
Author Organization [employer] Address 75 [facility] 7t [place] [address] Care Team Providers Care Gauger Chief Name Role Phone Suzy Minnie MALDONADO Primary Care Provider [phone] Coni Singh PharmD Unavailable Reason for Visit * Reason Comments Med Refill Encounter Details Date Type Department Care Team (Late st Contact Info) Description 01/21/2025 Refill [facility] MED[facility]INE [address] [place] [address] Samia Jacob MD 230 [place] [address] Social History Tobacco Use Types Packs/Day Years [...] Description 02/02/2025 9:00 AM EDT Medication Management [address] [address] Coni Singh PharmD [address] [place] [address] 02/13/2025 1:30 PM EDT Telemedicine [facility] MEDICINE [address] [place] [address] Minnie Almonte ANP [address] [place] [address] documented as of this encounter Visit Diagnoses Not on filedocumented in this encounter Care Teams Gauger Chief Relationship Specialty Start Date End Date Minnie Almonte ANP [address] [place] [address] PCP - General Family Medicine 04/15/21 Coni Singh PharmD [address] [place] [address] Pharmacist Internal Medicine 12/09/24 documented as of this encounter
--- OUTSIDE RECORDS SUMMARY | 2025-01-22 08:10 | XMS_ITS | Encounter Summary ---
Author Organization [facility] Address [address] [place] [address] Phone Care Team Providers Care Deburrer Machine Name Role Phone Minnie Almonte NP Primary Care Provider [phone] Encounter Details Date Type Department Care Team (Late Contact Info) Description 04/27/2022 Documentation Only [facility] [address] [place] [address] Bethany Brink PA [address] [place] [address] [place] [address] Social History Tobacco Use Types [...] Visit [facility] [address] [place] [address] Raffi Kraft MD [address] [place] [address] [place] [address] documented as of this encounter Visit Diagnoses Not on filedocumented in this encounter Care Teams Deburrer Machine Relationship Specialty Start Date End Date Minnie Almonte NP [address] [place] [address] [phone] PCP - General Nurse Practitioner 10/14/24 documented as of this encounter
== END 2025-01-21 08:05 | disposition home or self-care (01) ==
LOC: HO.HOSX 08:04
PROVIDERS: Visit Provider Physician Assistant
DX: M17.12 Unilateral primary osteoarthritis, left knee (principal); M25.562 Pain in left knee; M21.062 Valgus deformity, not elsewhere classified, left knee
CPT/HCPCS: 20610; 73562; 99212; J1010; J2003

== ENCOUNTER 2025-01-21 13:11 | Outpatient (AMB) | payer OTHER, SELFPAY ==
[2025-01-21 13:29] VITALS: BMI 34.1
--- NOTE | 2025-01-21 13:29 | MHC.OFFVIS ---
Vital Signs 01/21/25 13:29 Height 5 ft 6 in Weight 211 lb BMI 34.1 Intake Visit Reasons: New prob-chronic pain of left knee Intake Note: Talha is a 69 year old male who presents today as an established patient, new problem visit for an evaluation of left knee pain and instability. Patient was seen by PCP, who ordered an MRI and referred to orthopedics. Patient reports pain has been ongoing for more than 5 years. His pain is located at the medial aspect of the knee and occasionally travels to the lateral aspect. He states when the pain is in the lateral aspect his knees buckle and give out. Occasional pain that radiates up towards his hip. Finds minimal relief in pain with use of Tylenol. Denies any previous treatment or injury to knee. He believes he possibly had an injection in the past in his left knee. MR/MR knee LT wo con IMPRESSION: Small joint effusion and small Car's cyst. Findings suggestive of partial tears of the head of the gastrocnemius muscle and the popliteus tendon. Allergies aspirin Allergy (Unknown, Verified 01/21/25 13:53) SWELLING diphenhydramine (From Benadryl) Allergy (Unknown, Verified 01/21/25 13:53) RASH ibuprofen Allergy (Unknown, Verified 01/21/25 13:53) SWELLING indomethacin (From INDOCIN) Allergy (Unknown, Verified 01/21/25 13:53) UNKNWON NSAIDS (Non-Steroidal Anti-Inflamma Allergy (Unknown, Verified 01/21/25 13:53) RASH oxycodone Allergy (Unknown, Verified 01/21/25 13:53) SWELLING penicillin V Allergy (Unknown, Verified 01/21/25 13:53) Unknown Penicillins Allergy (Unknown, Verified 01/21/25 13:53) RASH tolmetin (TOLMETIN) Allergy (Unknown, Verified 01/21/25 13:53) UNKNOWN amitriptyline (From Elavil) Allergy (Verified 01/21/25 13:53) Unknown diclofenac Allergy (Verified 01/21/25 13:53) Unknown fenoprofen Allergy (Verified 01/21/25 13:53) Unknown halofantrine (From Halfan) Allergy (Verified 01/21/25 13:53) Unknown ketoprofen Allergy (Verified 01/21/25 13:53) Unknown meclofenamic acid (meclofenamate sodium) Allergy (Verified 01/21/25 13:53) Unknown mefenamic acid (From Ponstel) Allergy (Verified 01/21/25 13:53) Unknown metformin Allergy (Verified 01/21/25 13:53) Unknown morphine Allergy (Verified 01/21/25 13:53) Unknown naproxen Allergy (Verified 01/21/25 13:53) Unknown phenylbutazone Allergy (Verified 01/21/25 13:53) Unknown piroxicam (From Feldene) Allergy (Verified 01/21/25 13:53) Unknown sulindac Allergy (Verified 01/21/25 13:53) Unknown Codeine Phosphate Allergy (Unknown, Uncoded 01/21/25 13:53) Unknown HPI HPI New prob-chronic pain of left knee: Details: 69 yo male presents to the office today for left knee pain x5 years. He denies injury. He states the pain is worse with stairs and walking long distances. He states there are moments he feels the knee will give out. He has instability with ambulation.. He c/o medial sided knee pain which radiates towards the front of the knee. He states he has not had PT. He may have had an injection over 12 years ago, but unsure. [facility] Medical History Asthma SRINATH (obstructive sleep apnea) Osteopenia Tubular adenoma of colon History of hepatitis C GERD (gastroesophageal reflux disease) Hyperlipidemia Personal history of nicotine dependence Diabetes mellitus HTN (hypertension) Hypertensive heart disease CAD (coronary artery disease) Surgical History History of hand surgery History of endoscopy History of hip surgery History of meniscectomy of right knee History of cardiac cath History of colonoscopy History of blepharoplasty Social History Patient Tobacco Use Status: Former Tobacco user Years Smoked: (former smoker, onset 15yo, 1ppd x 41yrs, 40pyh, quit ~2011) Current occupational status: disabled Current occupation: rt hand Review of Systems Const All systems reviewed & are unremarkable except as noted in HPI and below Physical Exam Vital Signs: BMI result Body Mass Index 34.1 Const General: cooperative and no acute distress Orientation/consciousness: patient oriented x3 Resp Effort & Inspection: normal respiratory effort and able to speak in complete sentences Cardio Peripheral pulses: Peripheral pulses 2+ throughout Neuro General: patient oriented x3 Extrem Other: He has normal to inspection he has no open wounds or joint effusion present. He has significant medial joint line tenderness with valgus deformity. Range of motion is full. Neurovascularly intact. Office Procedures AMB Joint Injection/Aspiration Joint Injection/Aspiration Primary Site: left knee Prep: site was prepped using aseptic technique, ethochloride spray was applied and injection warnings given Injected: 40 mg of, DepoMedrol, with 8 mL of, 1% plain lidocaine and in the joint Approach Used: anterolateral Procedure: The patient tolerated the procedure well and there was some relief with the local anesthesia Coding - Glenohumeral/Tronchanteric Bursa/Intraarticular Procedure code (CPT) selection complete Results Reviewed Results Reviewed: X-rays of the left knee obtained in the office today and reviewed by me show moderate arthritis Assessment & Plan Assessment & Plan (1) Osteoarthritis of left knee: Code(s): M17.12 - Unilateral primary osteoarthritis, left knee Category: Medical Plan: We discussed options today which includes physical therapy to work on strengthening conditioning exercises. A referral was placed today and the patient was given the contact information to make an appointment. I also discussed the benefits of steroid injections and the patient would like to proceed with this today. He is diabetic and his sugars are well controlled. I did explain to the patient the side effect steroid can have on elevating sugars. He will monitor these over the next several days. Left knee was injected which the patient tolerated well today. I also recommend a medial process control manager knee brace to help with stability and offset the strain along the medial joint. He is interested in this and an order was placed. If symptoms persist or worsen he will contact our office otherwise he can follow up as needed. We can repeat injections every 3-6 months as needed. Orders: Orders XR knee LT 3V Today M25.562 - Pain in left knee PT Evaluation and Treatment Today M17.12 - Unilateral primary osteoarthritis, left knee, M21.062 - Valgus deformity, not elsewhere classified, left knee Coding Level of Care Code New Pt Level 3 (12934) Complex EM visit Add On G2211 Diagnoses Osteoarthritis of left knee M17.12 CPT Codes Coding - Joint 7: - Glenohumeral/Tronchanteric Bursa/Intraarticular ([id number])
--- OUTSIDE RECORDS SUMMARY | 2025-01-21 13:42 | XMS_ITS | Encounter Summary ---
Author Organization [facility] Address [address] [place] [address] Phone Care Team Providers Care Interactive Graphic Designer Name Role Phone Minnie Almonte NP Primary Care Provider [phone] Encounter Details Date Type Department Care Team (Late Contact Info) Description 04/27/2022 Documentation Only [facility] [address] [place] [place] [address] Bethany Brink PA [address] [place] [address] [place] [address] Social History Tobacco Use Types [...] Department Care Team (Late Contact Info) Description 05/05/2025 9:20 AM EST Office Visit [facility] [address] [place] [address] Raffi Kraft MD [address] [place] [address] [place] [address] documented as of this encounter Visit Diagnoses Not on filedocumented in this encounter Care Teams Interactive Graphic Designer Relationship Specialty Start Date End Date Minnie Almonte NP [address] [place] [address] [phone] PCP - General Nurse Practitioner 10/14/24 documented as of this encounter
--- OUTSIDE RECORDS SUMMARY | 2025-01-21 13:42 | XMS_ITS | Encounter Summary ---
Author Organization [employer] Address 75 [facility] 7t [place] [address] Care Team Providers Care Wallpaper Consultant Name Role Phone Suzy Minnie MALDONADO Primary Care Provider [phone] Coni Singh PharmD Unavailable Reason for Visit * Reason Comments Med Refill Encounter Details Date Type Department Care Team (Late st Contact Info) Description 01/21/2025 Refill [facility] [address] [place] [address] Samia Jacob MD 230 [place] [address] Social History Tobacco Use Types Packs/Day Years [...] Care Team (Late st Contact Info) Description 02/02/2025 9:00 AM EDT Medication Management [address] [address] Coni Singh PharmD [address] [place] [address] 02/13/2025 1:30 PM EDT Telemedicine [facility] [address] [place] [address] Minnie Almonte ANP [address] [place] [address] documented as of this encounter Visit Diagnoses Not on filedocumented in this encounter Care Teams Wallpaper Consultant Relationship Specialty Start Date End Date Minnie Almonte ANP [address] [place] [address] PCP - General Family Medicine 04/15/21 Coni Singh PharmD [address] [place] [address] Pharmacist Internal Medicine 12/09/24 documented as of this encounter
--- OUTSIDE RECORDS SUMMARY | 2025-01-21 13:42 | XMS_ITS | Clinical Summary ---
Author Organization [facility] Address [address] [place] [address] Care Team Providers Care Agriscience Teacher Name Role Phone Poonam Garcia MD Primary Care Provider [phone] Social History Tobacco Use Types Packs/Day Years [...] this topic Insurance MEDICAID OUT OF STATE [facility] [place] Care Teams Agriscience Teacher Relationship Specialty Start Date End Date Poonam Garcia MD PCP - General Surgery, General 11/06/19
== END 2025-01-21 14:40 | disposition home or self-care (01) ==
PROVIDERS: PCP Nurse Practitioner Primary Care; Visit Provider Physician Assistant
DX: M17.12 Unilateral primary osteoarthritis, left knee (principal); E11.9 Type 2 diabetes mellitus without complications
CPT/HCPCS: 20610; 99213

== ENCOUNTER → 2025-01-21 13:25 | Outpatient (BNV) | payer OTHER, SELFPAY | PROVIDERS: Visit Provider Radiology Diagnostic Radiology | DX: M17.12 Unilateral primary osteoarthritis, left knee (principal) | CPT/HCPCS: 73562 ==

== ENCOUNTER 2025-02-02 09:28 | Outpatient (REF) | payer OTHER, SELFPAY ==
--- OUTSIDE RECORDS SUMMARY | 2025-02-02 09:57 | XMS_ITS | Encounter Summary ---
Author Organization [facility] [employer] Address [address] [facility] [address] 7t [place] [address] Care Team Providers Care Gallery Host Name Role Phone Suzy Minnie MALDONADO Primary Care Provider [phone] Coni Singh PharmD Unavailable [phone] Encounter Details Date Type Department Care Team (Latest Contact Info) Description 02/02/2025 Travel Social History Tobacco Use Types Packs/Day Years [...] Care Team (Late st Contact Info) Description 02/13/2025 1:30 PM EDT Telemedicine [facility] MED[facility]INE [address] [place] [phone] Minnie Almonte ANP [address] [place] [address] 03/09/2025 9:00 AM EDT Medication Management [facility] [address] [place] [address] Coni Singh PharmD [address] [place] [address] documented as of this encounter Visit Diagnoses Not on filedocumented in this encounter Care Teams Gallery Host Relationship Specialty Start Date End Date Minnie Almonte ANP [address] [place] [phone] PCP - General Family Medicine 04/15/21 Coni Singh PharmD [address] [place] [address] Pharmacist Internal Medicine 12/09/24 documented as of this encounter
--- OUTSIDE RECORDS SUMMARY | 2025-02-02 09:58 | XMS_ITS | Clinical Summary ---
Author Organization [facility] Address [address] [place] [address] Care Team Providers Care Avionics Electronics Technician Name Role Phone Poonam Garcia MD Primary Care Provider [phone] Social History Tobacco Use Types Packs/Day Years [...] this topic Insurance [place]ICAID [place] [facility] [place] Care Teams Avionics Electronics Technician Relationship Specialty Start Date End Date Poonam Garcia MD PCP - General Surgery, General 11/06/19
--- OUTSIDE RECORDS SUMMARY | 2025-02-02 09:58 | XMS_ITS | Encounter Summary ---
Author Organization [facility] Address [address] [place] [address] Phone Care Team Providers Care Switch Inspector Name Role Phone Minnie Almonte NP Primary Care Provider [phone] Encounter Details Date Type Department Care Team (Late Contact Info) Description 04/27/2022 Documentation Only [facility] [address] [place] [address] Bethany Brink PA [address] [place] [address] [place] [address] Social History Tobacco Use Types [...] Visit [facility] [address] [place] [address] Raffi Kraft MD [address] [place] [address] [place] [address] documented as of this encounter Visit Diagnoses Not on filedocumented in this encounter Care Teams Switch Inspector Relationship Specialty Start Date End Date Minnie Almonte NP [address] [place] [address] [phone] PCP - General Nurse Practitioner 10/14/24 documented as of this encounter
[2025-02-02 12:06] LABS: Anion Gap 12 (12-20); Blood Urea Nitrogen 21 mg/dL (9-16); Calcium 9.3 mg/dL (8.4-10.2); Carbon Dioxide 26 mmol/L (22-29); Chloride 108 mmol/L (96-108); Estimated Glomerular Filt Rate > 60; Potassium 4.0 mmol/L (3.3-5.1); Sodium 142 mmol/L (135-145)
[2025-02-02 12:18] LABS: Vitamin B12 359 pg/mL (200-900)
[2025-02-02 12:35] LABS: Microalbum/Creatinine Ratio Ur 162.2 ug/mg cr (<30)
== END 2025-02-02 09:29 | disposition home or self-care (01) ==
LOC: HO.HHCL 09:28
PROVIDERS: PCP Nurse Practitioner Primary Care; Visit Provider Nurse Practitioner Primary Care
DX: E11.69 Type 2 diabetes mellitus with other specified complication (principal); I10 Essential (primary) hypertension; E78.5 Hyperlipidemia, unspecified
CPT/HCPCS: 36415; 80048; 82043; 82570; 82607

== ENCOUNTER → 2025-02-04 10:43 | Outpatient (REF) | payer OTHER, SELFPAY ==
--- NOTE | 2025-02-04 10:46 | CA_ITS ---
Transthoracic Echocardiogram Patient (Last, First, Middle): Talha Trejo H Gender: Male Date of : 1955 Age: 69 Procedure Date: 02/04/2025 Procedure Type: Transthoracic Echocardiogram Location: OP Height: 167.64 cm Weight: 95.71 kg BSA: 2.05 m2 Heart Rate: bpm BP: 120 / 80 mmHg Check Clerk: LIBAN Referring MD: Jeevan Marte MD Administration Dean: Jeevan Marte MD Symptoms: I11.9 - Hypertensive heart disease without heart failure Study Quality: Fair ECG Rhythm: Sinus Conclusions: - 1. Normal LV ejection fraction of 55-60% with mild LVH with impaired relaxation filling pattern 2. Normal cardiac valvular Dopplers 3. No gross pericardial effusion Findings Left Ventricle Normal left ventricular size and systolic function. There is mildly increased left ventricular wall thickness. The visually estimated ejection fraction is between 55-60%. Spectral Doppler is indicative of an impaired relaxation filling pattern. E/E prime ratio is between 8 and 15 consistent with indeterminate filling pressures. Right Ventricle Normal right ventricular cavity size and systolic function. Atria The left atrium is normal in size. Interatrial shunt cannot be excluded. The right atrium was not well visualized. Aortic Valve There is mild calcification of the aortic valve. There is no aortic valve stenosis. There is no aortic valve regurgitation. Mitral Valve There is mild anterior and posterior mitral leaflet thickening. There is trace mitral valve regurgitation. There is no mitral valve stenosis. Pulmonic Valve The pulmonic valve was not well visualized. Tricuspid Valve Likely normal tricuspid valve structure and function. Tricuspid regurgitation envelope is inadequate for calculation of right ventricular systolic pressure. Great Vessels All visible segments of the aorta are normal in size. The aorta was not well visualized. The pulmonary artery was not well visualized. Venous The inferior vena cava is normal in size and collapses greater than 50% with inspiration. Pericardium/Pleural There is no evidence of pericardial effusion. Prior Study Comparison No significant change compared to prior study dated: 03/18/2021. Measurements 2D Linear Measurements IVSd: 1.25 0.6-0.9/0.6-1.0 cm LVIDd: 4.31 3.9-5.3/4.2-5.9 cm LVIDd Index: 2.10 2.4-3.2/2.2-3.1 cm/m2 LVIDs: 3.04 2.0-3.6 cm LVPWd: 1.14 0.7-1.1 cm LA Diam: 3.50 2.7-3.8/3.0-4.0 cm LAIDs Index: 1.71 1.5-2.3 cm/m2 LV Mass: 229.53 67-162/88-224 g LV Mass Index: 111.96 43-95/49-115 g/m2 LVOT Diam: 2.00 3.0+(-)1.3 cm 2D Systolic Function EF 4C: 57.60 >55% EF 2C: 58.60 >55% EF BiP: 56.60 >55% Mitral Valve MV Pk E: 0.60 MV PK A: 1.00 MV Decel Time: 253.00 E/A: 0.60 E'Lateral: 6.42 E'Medial: 5.55 E/E' Med: 10.80 E/E' Lat: 9.30 PHT: 74.00 MVA PHT: 2.97 Decel Atkinson: 2.38 Aortic Valve AoV Pk Po: 1.61 AoV Mn Po: 1.18 AoV VTI: 0.32 AoV Pk Grad: 10.00 Aov Mn Grad: 6.00 ARNOL Cont.VTI: 1.96 LVOT LVOT Pk Po: 1.25 LVOT Mn Po: 0.77 LVOT VTI: 0.20 LVOT Pk Grad: 6.00 LVOT Mn Grad: 3.00 LVOT Diam: 2.00 LVOT Area: 3.14 Diastolic Function MV Pk E: 0.60 MV Pk A: 1.00 E/A: 0.60 E'Medial: 5.55 E/E' Med: 10.80 E' Laterial: 6.42 E/E' Lat: 9.30 Right Ventricle TAPSE (mm): 23.50 TVS' Po: 15.20 Tricuspid Valve RA Press: 3.00 Great Vessels Aorta Sinus of Valsalva: 3.38 2.0-3.5 cm Ao Asc: 3.40 2.1-3.4 cm Ao Arch: 3.40 Updated in Other Vendor System with Status of Final Jeevan Marte MD electronically signed on 02/04/2025 3:08:28 PM with status of Final
--- OUTSIDE RECORDS SUMMARY | 2025-02-04 11:35 | XMS_ITS | Encounter Summary ---
Author Organization [employer] Address [address] [facility] [address] [address] 7t [place] [address] Care Team Providers Care Research Environmental Engineer Name Role Phone Suzy Minnie MALDONADO Primary Care Provider [phone] Coni Singh PharmD Unavailable [phone] Encounter Details Date Type Department Care Team [...] Info) Description 02/13/2025 1:30 PM EDT Telemedicine [facility] MEDICINE [address] [place] [address] Minnie Almonte ANP [address] [place] [address] 03/09/2025 9:00 AM EDT Medication Management [facility] [address] [place] [address] Coni Singh PharmD [address] [place] [address] documented as of this encounter Visit Diagnoses Not on filedocumented in this encounter Care Teams Research Environmental Engineer Relationship Specialty Start Date End Date Minnie Almonte ANP [address] [place] [address] PCP - General Family Medicine 04/15/21 Coni Singh PharmD [address] [place] [address] Pharmacist Internal Medicine 12/09/24 documented as of this encounter
--- OUTSIDE RECORDS SUMMARY | 2025-02-04 11:35 | XMS_ITS | Encounter Summary ---
Author Organization [facility] Address [address] [place] [address] Phone Care Team Providers Care Fluorescent Solution Mixer Name Role Phone Minnie Almonte NP Primary Care Provider [phone] Encounter Details Date Type Department Care Team (Late Contact Info) Description 04/27/2022 Documentation Only [facility] [address] [place] [address] Bethany Brink PA [address] [place] [address] [place] [address] Social History Tobacco Use Types [...] Visit [facility] [address] [place] [address] Raffi Kraft MD [address] [place] [address] [place] [address] documented as of this encounter Visit Diagnoses Not on filedocumented in this encounter Care Teams Fluorescent Solution Mixer Relationship Specialty Start Date End Date Minnie Almonte NP [address] [place] [address] [phone] PCP - General Nurse Practitioner 10/14/24 documented as of this encounter
--- OUTSIDE RECORDS SUMMARY | 2025-02-04 11:35 | XMS_ITS | Clinical Summary ---
Author Organization [facility] Address [address] [place] [address] Care Team Providers Care Banquet Server On Call Name Role Phone Poonam Garcia MD Primary Care Provider [phone] Social History Tobacco Use Types Packs/Day Years [...] this topic Insurance [place] [facility] [place] Teams Banquet Server On Call Relationship Specialty Start Date End Date Poonam Garcia MD PCP - General Surgery, General 11/06/19
== END ==
LOC: HO.CARD 10:43
PROVIDERS: PCP Nurse Practitioner Primary Care; Visit Provider Internal Medicine Cardiovascular Disease
DX: I11.9 Hypertensive heart disease without heart failure (principal)
CPT/HCPCS: 93306

== ENCOUNTER → 2025-02-04 10:46 | Outpatient (BNV) | payer OTHER, SELFPAY | PROVIDERS: PCP Nurse Practitioner Primary Care; Visit Provider Internal Medicine Cardiovascular Disease | DX: I35.8 Other nonrheumatic aortic valve disorders (principal); I51.89 Other ill-defined heart diseases | CPT/HCPCS: 93306 ==

== ENCOUNTER 2025-02-27 08:02 | Outpatient (REF) | payer OTHER, SELFPAY ==
--- OUTSIDE RECORDS SUMMARY | 2025-02-27 08:10 | XMS_ITS | Encounter Summary ---
Author Organization [employer] Address 75 [facility] 7t [place] [address] Care Team Providers Care Safety And Security Officer Name Role Phone Minnie Almonte Primary Care Provider [phone] Coni Singh PharmD Unavailable Reason for Visit * Reason Comments Med Refill Encounter Details Date Type Department Care Team ([facility] st Contact Info) Description 04/11/2023 Refill [facility] MEDICINE [address] [place] [address] Minnie Almonte ANP [address] [place] [address] Social History Tobacco Use Types Packs/Day Years [...] Care Team (Late st Contact Info) Description 03/09/2025 9:00 AM EDT Medication Management [facility] MEDICINE [address] [place], [place] [phone] Coni Singh PharmD [address] [place] [address] documented as of this encounter Visit Diagnoses Not on filedocumented in this encounter Care Teams Safety And Security Officer Relationship Specialty Start Date End Date Minnie Almonte ANP [address] [place] [address] PCP - General Family Medicine 04/15/21 Coni Singh PharmD [address] [place] [address] Pharmacist Internal Medicine 12/09/24 documented as of this encounter
--- OUTSIDE RECORDS SUMMARY | 2025-02-27 08:10 | XMS_ITS | Encounter Summary ---
Author Organization [employer] Address 75 [facility] 7t [place] [address] Care Team Providers Care Shirrer Name Role Phone Minnie Almonte ERICA Primary Care Provider [phone] Coni Singh PharmD Unavailable Encounter Details Date Type Department Care Team ([facility] Contact Info) Description 07/11/2022 Orders Only [facility] [address] [place] [address] Gayle Coulter LPN Social History Tobacco Use [...] Upcoming Encounters Date Type Department Care Team ([facility] Contact Info) Description 03/09/2025 9:00 AM EDT Medication Management [facility] MEDICINE [address] [place] [address] Coni Singh, PharmD [address] [place], [place] [phone] documented as of this encounter Visit Diagnoses Not on filedocumented in this encounter Care Teams Shirrer Relationship Specialty Start Date End Date Minnie Almonte ANP [address] [place] [address] PCP - General Family Medicine 04/15/21 Coni Singh PharmD [address] [place] [address] Pharmacist Internal Medicine 12/09/24 documented as of this encounter
--- OUTSIDE RECORDS SUMMARY | 2025-02-27 08:10 | XMS_ITS | Encounter Summary ---
Author Organization [employer] Address 75 [facility] 7t [place] [address] Care Team Providers Care Baggage Agent Supervisor Name Role Phone Minnie Almonte Primary Care Provider [phone] Coni Singh PharmD Unavailable Reason for Visit * Reason Comments Med Refill Encounter Details Date Type Department Care Team (Late st Contact Info) Description 07/30/2022 Refill [facility] MEDICINE [address] [place] [address] Minnie Almonte ANP [address] [place] [address] Hyperlipidemia associated with type 2 diabetes mellitus (CMS/HCC) Social History Tobacco Use Types Packs/Day Years [...] Description 03/09/2025 9:00 AM EDT Medication Management [facility] MEDICINE [address] [place] [address] Coni Singh PharmD [address] [place] [address] documented as of this encounter Visit Diagnoses Diagnosis Hyperlipidemia associated with type 2 diabetes mellitus (CMS/HCC) documented in this encounter Care Teams Baggage Agent Supervisor Relationship Specialty Start Date End Date Minnie Almonte ANP [address] [place] [phone] PCP - General Family Medicine 04/15/21 Coni Singh PharmD [address] [place] [address] Pharmacist Internal Medicine 12/09/24 documented as of this encounter
--- OUTSIDE RECORDS SUMMARY | 2025-02-27 08:10 | XMS_ITS | Encounter Summary ---
Author Organization [facility] Address [address] [place] [address] Phone Care Team Providers Care Cloth Mender Name Role Phone Minnie Almonte NP Primary Care Provider [phone] Encounter Details Date Type Department Care Team (Late Contact Info) Description 04/27/2022 Documentation Only [facility] [address] [place] [address] Bethany rBink PA [address] [place] [address] [place] [address] Social History Tobacco Use Types [...] Visit [facility] [address] [place] [address] Raffi Kraft MD [address] [place] [address] [place] [address] documented as of this encounter Visit Diagnoses Not on filedocumented in this encounter Care Teams Cloth Mender Relationship Specialty Start Date End Date Minnie Almonte NP [address] [place] [address] [phone] PCP - General Nurse Practitioner 10/14/24 documented as of this encounter
--- OUTSIDE RECORDS SUMMARY | 2025-02-27 08:10 | XMS_ITS | Encounter Summary ---
Author Organization [employer] Address [address] [facility] [address] 7t [place] [address] Care Team Providers Care Sheet Metal Apprentice Name Role Phone Almonte Minnie MALDONADO Primary Care Provider [phone] Coni Singh PharmD Unavailable [phone] Encounter Details Date Type Department Care Team ([facility] st Contact Info) Description 05/11/2023 Abstract [facility] MEDICINE [address] [place] [address] Joyce Ely Social History Tobacco Use Types [...] Description 03/09/2025 9:00 AM EDT Medication Management [facility] [address] [place] [address] Coni Singh PharmD 230 [place] [address] documented as of this encounter Procedures Procedure Name Priority Date/Time Associated Diagnosis Comments COLONOSCOPY Routine 01/22/2019 documented in this encounter Results * Colonoscopy (01/22/2019) Colonoscopy Normal Normal Comment:repeat in 5 years us Historical Provider HEALTH MAINTENANCE Final Result documented in this encounter Visit Diagnoses Not on filedocumented in this encounter Care Teams Sheet Metal Apprentice Relationship Specialty Start Date End Date Minnie Almonte ANP [address] [place] [phone] PCP - General Family Medicine 04/15/21 Coni Singh PharmD [address] [place] [address] Pharmacist Internal Medicine 12/09/24 documented as of this encounter
--- OUTSIDE RECORDS SUMMARY | 2025-02-27 08:11 | XMS_ITS | Encounter Summary ---
Author Organization [employer] Address 75 [facility] 7t [place] [address] Care Team Providers Care Real Estate Agency Licensee Name Role Phone Minnie Almonte Primary Care Provider [phone] Coni Singh PharmD Unavailable [phone] Reason for Visit * Reason Onset Date Comments requesting a call back 11/23/2022 Encounter Details Date Type Department Care Team (Late st Contact Info) Description 11/23/2022 Telephone [facility] MEDICINE [address] [place] [address] Minnie Almonte ANP [address] [place] [address] requesting a call back Social History Tobacco [...] Description 03/09/2025 9:00 AM EDT Medication Management [facility] MEDICINE [address] [place] [address] Coni Singh PharmD [address] [place] [address] documented as of this encounter Visit Diagnoses Not on filedocumented in this encounter Care Teams Real Estate Agency Licensee Relationship Specialty Start Date End Date Minnie Almonte ANP [address] [place] [address] PCP - General Family Medicine 04/15/21 Coni Singh PharmD [address] [place] [phone] Pharmacist Internal Medicine 12/09/24 documented as of this encounter
--- OUTSIDE RECORDS SUMMARY | 2025-02-27 08:11 | XMS_ITS | Clinical Summary ---
Author Organization [employer] Address [address] [facility] [address] [place] [address] Care Team Providers Care Skin Pass Operator Name Role Phone Garcia Powers ERICA Primary Care Provider [phone] Coni Singh PharmD Unavailable Allergies Active Allergy Reactions Criticality Noted Date Comments Luis Inhibitors Cough 07/28/2010 COUGH Amitriptyline Other High 07/28/2010 SUICIDAL IDEATION Aspirin Anaphylaxis,Hives High 07/28/2010 Codeine Hives 04/07/2020 Doxycycline Itching,Angioedema High 11/12/2017 ANGIOEDEMA Ibuprofen Anaphylaxis High 07/28/2010 Morphine Itching Low 07/28/2010 Other reaction(s): itchy all over Penicillins Itching,Rash,Swelling Low 07/28/2010 Medications acetic acid (Vosol) 2 % otic solution 022 Active clonazePAM (KlonoPIN) 1 MG tablet Take 1 tablet by mouth every 8 (eight) hours. Active dextran 70-hypromellose (artificial tears) 0.1-0.3 % ophthalmic solution Active Nebulizers (Compressor Nebulizer) [facility] 010 Active Blood Glucose Monitoring Suppl (ONE TOUCH ULTRA 2) w/Device kitIndications:Hy perlipidemia associated with type 2 diabetes mellitus (CMS/HCC) TEST BLOOD SUGAR 2-3 TIMES A DAY 1 kit 023 Active albuterol (2.5 MG/3ML) 0.083% nebulizer solution INHALE THE CONTENTS OF 1 VIAL VIA NEBULIZER FOUR TIMES A DAY NEEDED 300 mL 3 023 Active Alcohol Swabs (Alcohol Prep) pads USE TO TEST BLOOD GLUCOSE TWICE A DAY 100 each 11 023 Active albuterol 108 (90 Base) MCG/ACT inhaler INHALE TWO PUFFS BY MOUTH FOUR TIMES A DAY NEEDED 18 g 1 024 Active acetaminophen (Tylenol) 500 MG tablet TAKE ONE TO TWO TABLETS THREE TIMES A DAY NEEDED. MAX 6 TABLETS PER 24 HOURS 100 tablet 5 024 Active diphenhydrAMINE (BENADryl) 12.5 MG/5ML liquidIndications :Allergic reaction, subsequent encounter Take 10 mL (25 mg) by mouth every 6 (six) hours if needed for allergies. 240 mL 1 024 Active glucose blood (Innovation InternationalTouch Ultra) test stripIndications: Diabetic polyneuropathy associated with type 2 diabetes mellitus (CMS/HCC),Needle phobia USE TO TEST BLOOD SUGAR 2 TO 3 TIMES A DAY 100 strip 11 024 Active Lancets (Innovation InternationalTouch Delica Plus Luuznm12M) miscIndications:H yperlipidemia associated with type 2 diabetes mellitus (CMS/HCC) USE TO TEST BLOOD SUGAR 2 TO 3 TIMES A DAY 100 each 11 024 Active clopidogrel (Plavix) 75 MG tablet TAKE ONE TABLET BY MOUTH EVERY DAY 90 tablet 3 025 Active D3-1000 25 MCG (1000 UT) capsuleIndication s:Osteoporosis, unspecified osteoporosis type, unspecified pathological fracture presence TAKE ONE CAPSULE BY MOUTH TWICE A DAY 180 capsule 3 025 Active EPINEPHrine (Epipen) 0.3 MG/0.3ML injection syringeIndication s:Aspirin allergy Inject 0.3 mL (0.3 mg) as directed 1 (one) time if needed for anaphylaxis. 2 each 025 Active pravastatin (Pravachol) 20 MG tablet TAKE 1 TABLET BY MOUTH EVERY EVENING 90 tablet 3 Active famotidine (Pepcid) 20 MG tablet TAKE ONE TABLET BY MOUTH TWO TIMES A DAY 180 tablet 1 025 Active Oyster Shell Calcium 500 MG tabletIndications :Osteoporosis, unspecified osteoporosis type, unspecified pathological fracture presence TAKE ONE TABLET BY MOUTH ONCE DAILY IN THE MORNING 90 tablet 1 025 Active fluticasone (Flonase) 50 MCG/ACT nasal sprayIndications: Non-seasonal allergic rhinitis, unspecified trigger 1 spray into each nostril 1-2 times daily. Shake gently. Before first use, prime pump. After use, clean tip and replace cap. 48 g 025 Active cetirizine (ZyrTEC) 10 MG tabletIndications :Non-seasonal allergic rhinitis, unspecified trigger Take 1 tab as needed for allergies 90 tablet 1 025 Active escitalopram (Lexapro) 20 MG tablet TOME GARY TABLETA VIA ORAL CADA MANANA 025 Active risperiDONE (RisperDAL) 2 MG tablet TOME SHADIA TABLETA VIA ORAL CADA NOCHE A LA HORA DE ACOSTARSE 025 Active alfuzosin ER (Uroxatral) 10 MG 24 hr tablet TOME GARY TABLETA VIA ORAL CADA MARA AFTER THE SAME MEAL EACH DAY 025 Active Dulaglutide (Trulicity) 1.5 MG/0.5ML solution auto-injectorIndi cations:Type 2 diabetes mellitus with hyperlipidemia (CMS/HCC) ([facility]) Inject 1.5 mg under the skin every 7 (seven) days. 2 mL 3 025 Active amLODIPine (Norvasc) 10 MG tablet TAKE ONE TABLET BY MOUTH EVERY DAY 90 tablet 3 025 Active montelukast (Singulair) 10 MG tablet TAKE ONE TABLET BY MOUTH EVERY EVENING 90 tablet 3 025 Active Azelastine HCl 137 MCG/SPRAY solution INSTILL 2 SPRAYS INTO EACH NOSTRIL EVERY 12 HOURS 025 Active fish oil concentrate ([place]-3) 1000 MG capsule Patient purchasing OTC Active losartan-hydroCHL OROthiazide (Hyzaar) 100-12.5 MG tabletIndications :Essential hypertension Take 1 tablet by mouth in the morning. 90 tablet 025 Active metFORMIN XR (Glucophage-XR) 500 MG 24 hr tabletIndications :Type 2 diabetes mellitus with hyperlipidemia (CMS/HCC) ([facility]) Take 1 tablet (500 mg) by mouth 2 times daily. Do not crush, chew, or split. 180 tablet 025 Active losartan (Cozaar) 100 MG tablet TAKE 1 TABLET BY MOUTH ONCE DAILY 90 tablet 3 025 2024 Discontinued(O ther) metFORMIN XR (Glucophage-XR) 500 MG 24 hr tabletIndications :Type 2 diabetes mellitus with hyperlipidemia (CMS/HCC) (CMS/HCC) Take 1 tablet (500 mg) by mouth 2 times daily. Do not crush, chew, or split. 180 tablet 025 2024 Discontinued(R eorder (will not trigger notification to Pharmacy)) omega-3 acid ethyl esters (Lovaza) 1 g capsule Patient purchasing OTC 2024 Discontinued(O ther) Active Problems Problem Noted Date Diagnosed Date Aspirin allergy 08/21/2024 Benign prostatic hyperplasia with incomplete bladder emptying 06/20/2023 Shoulder joint pain 04/09/2023 04/09/2023 Muscle pain 04/09/2023 04/09/2023 Lumbosacral radiculitis 04/09/2023 04/09/20 Enthesopathy of hip region 04/09/202304/09 Displacement of lumbar inter vertebral disc without myelopathy 04/09/2023 04/09/2023 Diabetic neuropathy 04/09/2023 04/09/2023 Knee pain, left 04/09/2023 04/09/2023 Mild persistent asthma 07/14/2022 Chronic kidney disease, stage 2 (mild) 04/09/2023 Coronary artery disease invo lving [place] coronary artery of [place] heart without angina pectoris 02/17/2016 Overview (10/12/2022): On plavix, TOSHA allergy to ASA Allergic rhinitis 08/19/2015 Depressive disorder 08/19/2015 Essential hypertension 08/19/2015 Foot pain 08/19/2015 Gastroesophageal reflux disease without esophagi tis 08/19/2015 Intermittent low back pain 08/19/2015 Type 2 diabetes mellitus with hyperlipidemia (CM S/HCC) 08/19/2015 Obesity 08/19/2015 Obstructive sleep apnea syndrome 08/19/2015 Osteoporosis 08/19/2015 Resolved Problems Problem Noted Date Diagnosed Date Resolved Date Needle phobia 11/25/2024 02/02/2025 Encounters Date Type Department Care Team Description 02/20/[address] [address] Coni Singh, PharmD 02/19/2025 Telephone [facility] [address] [place] [address] Garcia Powers ANP Appointment Request 02/19/2025 Telephone [facility] [address] [place] [address] Garcia Powers ANP Med Refill 02/13/2025 1:30 PM EDT Telemedicine [facility] [address] [place] [address] Garcia Powers ANP Type 2 diabetes mellitus with hyperlipidemia (CMS/HCC) (CMS/HCC) (Primary Dx) 02/13/2025 Travel 02/12/2025 Telephone [facility] [address] [place] [address] Garcia Powers ANP chartprep 02/06/2025 Travel 02/02/2025 Travel 02/01/2025 Travel 01/21/2025 Refill [facility] [address] [place] [address] Samia Jacob MD 01/07/2025 Travel 12/27/2024 Refill [facility] [address] [facility] [place] [address] Garcia Powers ANP Hyperlipidemia associated with type 2 diabetes mellitus (CMS/HCC) 12/22/2024 Results Follow-Up [facility] [place] [address] Garcia Powers ANP MR Knee w/o Contrast Left, Albumin, Random Urine W/Creatinine, Basic Metabolic Panel, Vitamin B12 12/20/2024 Orders Only [facility] [place] [address] Garcia Powers ANP 12/09/2024 Telephone [facility] [facility] [place] [address] Coni Singh, PharmD 12/09/2024 Travel 12/01/2024 Orders Only [facility] [address] [facility] [place] [address] Chago Elizabeth MD Type 2 diabetes mellitus with hyperlipidemia (CMS/HCC) (CMS/HCC) (Primary Dx) from Last 3 Months Immunizations Immunization Administration Dates Next Due Hep A, Adult 03/26/2015 Hep B, adult 03/26/2015 Influenza High-dose Quadriva lent Preservative Free 04/10/2023 Influenza Injectable Quadriv alant Preservative Free IIV4 MDCK 05/05/2021,03/09/2020,04/07/2019,06/10 Influenza Quadrivalent Adjuvanted 04/03/2022 Influenza injectable quadriv alent IIV4 with preservative 03/24/2015 Influenza injectable quadriv alent preservative free 04/23/2017,05/31/2016 Influenza, IIV3, injectable 05/15/2023,1 07/26/2017,07/01/2014,04/20,05/25/2008 Influenza, Split (incl. [place] fied surface antigen) [...] drink = 0.6 oz pur e alcohol) Depression Answer Date Recorded Patient Health Questionnaire-9 Score 6 02/13/2025 Patient Health Questionnaire-9 Score 6 02/13/2025 Last PHQ-9: Questionnaire Data Not on file 0 02/13/2025 Housing Stability Answer Date Recorded What is [...] off services in your home? No 08/08/2024 Depression Answer Date Recorded Patient Health Questionnaire-2 Score 1 02/13/2025 Internet Access Answer Date Recorded Internet Access [...] Sign Reading Time Taken Comments Blood Pressure 142/64 02/02/2025 9:15 AM EDT Pulse 76 02/02/2025 9:08 AM EDT Temperature 36.9 C (98.5 F) 09/05/2024 9:37 AM EDT Respiratory Rate 16 11/20/2024 10:42 AM EDT Oxygen Saturation 98% 09/05/2024 9:37 AM EDT Inhaled Oxygen Concentration - - Weight 97.3 kg (214 lb 6.4 oz) 02/02/2025 9:00 A M EDT Height 168.9 cm (5' 6.5 ) 02/02/2025 9:00 AM EDT Body Mass Index 34.09 02/02/2025 9:00 AM EDT Plan of Treatment Upcoming Encounters Date Type Department Care Team (Late st Contact Info) Description 03/09/2025 9:00 AM EDT Medication Management [facility] [address] [place], [place] [phone] Coni Singh, PharmD [address] [place] [address] Health Maintenance Due Date Last Done Comments CT Colonography 1955 FIT DNA/Cologuard 1955 FIT 1955 FOBT 1955 Sigmoidoscopy 1955 Hepatitis B Vaccines (2 of 3 - 19+ 3-dose series) 04/23/2015 03/26/2015 RSV Patients and Patients Aged 60 years or older (1 - Risk 60-74 years 1-dose series) 2016 Lung Cancer Screening 10/12/2022 Eye Exam 10/23/2022 Diabetes: Foot Exam 07/20/2024 07/20/2023, 07/20/2023, 07/20/2023, Additional history exists COVID-19 Vaccine ( season) 2025 05/25/2022, 05/27/2021, 11/24/2020, Additional history exists Influenza Vaccine (#1) 2025 , 05/15/2023, 04/10/2023, Additional history exists Diabetes: Hemoglobin A1C 03/22/2025 025, 11/20/2024, 08/21/2024, Additional history exists SDOH Screening 08/08/2025 08/08/2024 Alcohol/Substance Use Screening 08/21/2025 08/21/2024 Lipid Panel 12/20/2025 12/20/2024, 03/25, 06/30/2023, Additional history exists Diabetes: Urine Protein Screening 02/02/2026 02/02/2025, 06/30/2023, 09/05/2021, Additional history exists Depression Screening 02/13/2026 02/13/2025, 02/14/20 25 Tobacco Screening 02/13/2026 02/13/2025 DTaP/Tdap/Td Vaccines (3 - Td or Tdap) 07/20/2033 07/20/2023, 10/28/2012, 11/01/2003, Additional history exists Colonoscopy 04/29/2035 01/22/2019 Colorectal Cancer Screening 04/29/2035 Hepatitis A Vaccines Aged Out 03/26/2015 No long er eligible based on patient's age to complete this topic Zoster Vaccines Completed 08/29/2018, 05/25, 12/05/2016 Hepatitis C Screening Completed 03/25/2023 Pneumococcal Vaccine: 50+ Years Completed 04/10/2023, 09/13/2021, 02/23/2009 HIB Vaccines Aged Out No longer eligi ble based on patient's age to complete this topic HPV Vaccines Aged Out No longer eligi ble based on patient's age to complete this topic IPV Vaccines Aged Out No longer eligi ble based on patient's age to complete this topic Meningococcal B Vaccine Aged Out No l onger eligible based on patient's age to complete [...] Procedure Name Priority Date/Time Associated Diagnosis Comments VITAMIN B12 Routine 02/02/2025 9:40 AM EDT Hyperlipidemia associated with type 2 diabetes mellitus (CMS/HCC) BASIC METABOLIC PANEL Routine 02/02/2025 9:40 AM EDT Hyperlipidemia associated with type 2 diabetes mellitus (CMS/HCC) ALBUMIN, RANDOM URINE W/CREATININE Routine 02/02/2025 9:40 AM EDT Hyperlipidemia associated with type 2 diabetes mellitus (CMS/HCC) MR KNEE WO CONTRAST LEFT Routine 12/20/2024 10:00 AM EDT Chronic pain of left knee LIPID PANEL, STANDARD Routine 12/20/2024 9:46 AM EDT HEMOGLOBIN A1C Routine 12/20/2024 9:46 AM EDT HEPATITIS PANEL, GENERAL Routine 03/25/2023 10:19 AM EDT HM COLONOSCOPY Routine 01/22/2019 from Last 3 Months or Most Recently Relevant to Health Maintenance Results * (ABNORMAL) Albumin, Random Urine W/Creatinine (02/02/2025 9:40 AM EDT) Creatinine, Urine 41.91 mg/dL [facility] Microalbumin Urine 68.0 mg/L [facility] Microalbum Creatinine Ratio Ur 162.2(H) <30 ug/mg cr [facility] Comment:Albumin/Creatinine R atio Reference Ranges: Normal: < 30 ug/mg creatinine Microalbuminuria: 30 - 300 ug/mg creatinineClinical Albuminuria: > 300 ug/mg creatinine Urine 02/02/2025 9:40 AM EDT 02/02/2025 11:14 AM EDT Garcia Powers ANP LAB URINE ORDERABLES Final Resul t Performing Organization Address [facility] de Phone Number [facility] [address] [place] [phone] * Vitamin B12 (02/02/2025 9:40 AM EDT) Vitamin B12 359 200 - 900 pg/mL [facility] Comment:NORMAL 200-900 PG/ML INDETERMINATE 160-199 PG/ML DEFICIENT < 160 PG/ML Blood Venous blood specimen / Unknown 02/02/2025 9:40 AM EDT 02/02/2025 11:22 AM EDT Garcia Powers ANP LAB BLOOD ORDERABLES Final Resul t Performing Organization Address [facility] de Phone Number [facility] [address] [place] [phone] * (ABNORMAL) Basic Metabolic Panel (02/02/2025 9:40 AM EDT) Sodium 142 135 - 145 mmol/L [facility] Potassium 4.0 3.3 - 5.1 mmol/L [facility] Chloride 108 96 - 108 mmol/L [facility] Carbon Dioxide 26 22 - 29 mmol/L [facility] Anion Gap 12 12 - 20 [facility] Urea Nitrogen (BUN) 21(H) 9 - 16 mg/dL [facility] Creatinine, Serum 0.87 0.5 - 1.4 mg/dL [facility] Estimated Glomerular Filt Rate >60 [facility] Comment:Chronic Kidney Disea se: Estimated GFR < 60 mL/min/1.75e8Derzsa Kidney Disease: Estimated GFR < 15 mL/min/1.73m2 Glucose 119(H) 60 - 115 mg/dL [facility] Calcium 9.3 8.4 - 10.2 mg/dL [facility] Blood Venous blood specimen / Unknown 02/02/2025 9:40 AM EDT 02/02/2025 11:22 AM EDT Garcia Powers ANP LAB BLOOD ORDERABLES Final Resul t Performing Organization Address City/State/[facility] Co de Phone Number [facility] [address] [place] [phone] * MR Knee w/o Contrast Left (12/20/2024 10:00 AM EDT) Anatomical Region Laterality Modality Magnetic Resonan ce 12/20/2024 10:0 0 AM EDT Narrative 12/22/2024 9:56 AM EDT [address] [address] Magnetic Resonance Report Signed Patient: Talha Trejo MR#: [id number] : 1955 Acct:[id number] Age/Sex: 69 / M ADM Date: 12/20/24 Loc: HO.MRI Attending Dr: Garcia Powers NP Ordering Physician: GARCIA POWERS NP Date of Service: 12/20/24 Procedure(s): MR knee LT wo con Accession Number(s): [id number] cc: GARCIA POWERS NP EXAMINATION: MRI LEFT KNEE WITHOUT CONTRAST HISTORY: r/o meniscal tear COMPARISON: There are no prior studies available for comparison. TECHNIQUE: Coronal T1 and fat-suppressed proton density, sagittal proton density and fat-suppressed proton density, and axial fat suppressed T2 weighted MR images of the left knee were obtained. FINDINGS: Bone marrow: Bone marrow signal intensity is normal. Joint effusion: There is a small joint effusion. Car's cyst: There is a small Car's cyst. Articular cartilage: Intact Anterior cruciate ligament: Intact Posterior cruciate ligament: Intact Medial collateral ligament: Intact Lateral collateral ligament: Intact Medial meniscus: Intact Lateral meniscus: Intact Flexor mechanism: There is focal increased T2 signal intensity in the head of the gastrocnemius muscle consistent with a partial tear. There is edema in the distal popliteus tendon, suggestive of a partial tear. Quadriceps tendon: Intact Patellar tendon: Intact Patellar retinacula: Intact MR/MR knee LT wo con IMPRESSION: Small joint effusion and small Car's cyst. Findings suggestive of partial tears of the head of the gastrocnemius muscle and the popliteus tendon.. Electronically signed by: Homero Betts MD 12/22/2024 09:53 AM EDT RP Dictated By: Homero Betts MD Signed By: <Electronically signed by Homero Betts MD in OV> 12/22/24 0953 DD/ 1000 TD/TT: 12/20/24 1022 [employer] I Laborer: Procedure Note Donotuseinterpreter, Image - 12/22/2024 [place] [address] Magnetic Resonance Report Signed Patient: Talha Trejo R#: [id number] : 7Acct:[id number] Age/Sex: 69 / MADM Date: 12/20/24 Loc: HO.MRI Attending Dr: Garcia Powers NP Ordering Physician: GARCIA POWERS NP Date of Service: 12/20/24 Procedure(s): MR knee LT wo con Accession Number(s): [id number] cc: GARCIA POWERS NP EXAMINATION: MRI LEFT KNEE WITHOUT CONTRAST HISTORY: r/o meniscal tear COMPARISON: There are no prior studies available for comparison. TECHNIQUE: Coronal T1 and fat-suppressed proton density, sagittal proton density and fat-suppressed proton density, and axial fat suppressed T2 weighted MR images of the left knee were obtained. FINDINGS: Bone marrow: Bone marrow signal intensity is normal. Joint effusion: There is a small joint effusion. Car's cyst: There is a small Car's cyst. Articular cartilage: Intact Anterior cruciate ligament: Intact Posterior cruciate ligament: Intact Medial collateral ligament: Intact Lateral collateral ligament: Intact Medial meniscus: Intact Lateral meniscus: Intact Flexor mechanism: There is focal increased T2 signal intensity in the head of the gastrocnemius muscle consistent with a partial tear. There is edema in the distal popliteus tendon, suggestive of a partial tear. Quadriceps tendon: Intact Patellar tendon: Intact Patellar retinacula: Intact MR/MR knee LT wo con IMPRESSION: Small joint effusion and small Car's cyst. Findings suggestive of partial tears of the head of the gastrocnemius muscle and the popliteus tendon.. Electronically signed by: Homero Betts MD 12/22/2024 09:53 AM EDT RP Dictated By: Homero Betts MD Signed By: <Electronically signed by Homero Betts MD in OV> 12/22/24 0953 DD/ 1000 TD/TT: 12/20/24 1022 [employer] I Laborer: us Garcia Powers ANP IMG MRI PROCEDURES Final Result * (ABNORMAL) Hemoglobin A1c (12/20/2024 9:46 AM EDT) Hemoglobin A1c 7.7(H) <6.0 % [facility] Comment:Hemoglobin A1C Refer ence Range Adults: 4.8 - 6.0 % Non diabetic: < 6.0 % Goal: < 7.0 %Additional Action Suggested: > 8.0 %Note: Hemoglobin A1c results are invalid for patients with abnormal amounts of HbF. Blood transfusions may impact the HbA1c concentration in the patient sample. Estimated Average Glucose 174 mg/dL [facility] Comment:eAG = Estimated ave rage glucose which is %A1C expressed asaverage glucose, using the formula of the [id number] Glucose study (ADAG), Diabetes Care, Vol.31,#8,Jan. 2007 12/20/2024 9:46 AM EDT 12/20/2024 9:46 AM EDT us Garcia Powers ANP LAB BLOOD ORDERABLES Final Resul t Performing Organization Address City/State/[facility] Co de Phone Number [facility] [address] [place] [address] [phone] * Lipid Panel, Standard (12/20/2024 9:46 AM EDT) Triglycerides 108 <150 mg/dL [facility] Comment:Desirable Triglyceri de: less than 150 mg/dLBorderline High Triglyceride 150-199 mg/dLHigh Triglyceride: 200-499 mg/dLVery High Triglyceride: greater than or equal to 5OO mg/dL Cholesterol 121 <200 mg/dL [facility] Comment:Desirable Cholestero l: less than 200 mg/dLBorderline High Cholesterol: 200-239 mg/dLHigh Cholesterol: greater than 239 mg/dL LDL Cholesterol Calculated 56 <100 mg/dL [facility] Comment:Desirable LDL: less than 100 mg/dLNear Optimal/Above Optimal LDL: 110- 129 mg/dLBorderline High LDL: 130-159 mg/dLHigh LDL: 160-189 mg/dLVery High LDL: greater than or equal to 190 mg/dL HDL Cholesterol 44 >40 mg/dL [facility] Comment:Desirable HDL: great er than 40 mg/dL Note: This HDL assay may give artificially low results in patients with liver disease. 12/20/2024 9:46 AM EDT 12/20/2024 9:46 AM EDT [facility] LAB BLOOD ORDERABLES Final Resul t Performing Organization Address [facility] Co de Phone Number [facility] [address] [place] [phone] [phone] * (ABNORMAL) Hepatitis Panel, General (03/25/2023 10:19 AM EDT) Hepatitis A IgM Nonreactive Nonreactive [facility] Comment:IgM antibodies to DENNEY V not detected; does not exclude earlyacute or recovered HAV infection. ~Hepatitis B Surface Antibody REACTIVE Nonreactive [facility] Comment:REACTIVE: > 11.99 mI U/mL Hepatitis B Core Antibody Reactive Nonreactive [facility] Comment:Presumptive evidence of anti-HBc. Hepatitis C Antibody Reactive(A) Nonreactive [facility] Comment:Presumptive evidence of antibodies to HCV. Hepatitis B Surface Ag Negative Negative [facility] 03/25/2023 10:1 9 AM EDT 03/25/2023 10:22 AM EDT [facility] External Provider LAB BLO OD ORDERABLES Final Result [facility] [address] [place] [address] [phone] * Colonoscopy (01/22/2019) Colonoscopy Normal Normal Comment:repeat in 5 years Historical Provider MD HEALTH MAINTENANCE Final Result from Last 3 Months or Most Recently Relevant to Health Maintenance Insurance [facility] LONG-TERM OPTIONS (O D-SNP) [place] [id number] Care Teams Skin Pass Operator Relationship Specialty Start Date End Date Garcia Powers ANP [address] [place] [address] PCP - General Family Medicine 04/15/21 Coni Singh, Jaimee [address] [place] [phone] Pharmacist Internal Medicine 12/09/24
--- OUTSIDE RECORDS SUMMARY | 2025-02-27 08:11 | XMS_ITS | Encounter Summary ---
Author Organization [facility] Address [address] [place] [address] Phone Care Team Providers Care Director Franchise Sales Name Role Phone AlmonteMinnie Dakota TREJO Primary Care Provider [phone] Encounter Details Date Type Department Care Team (Late st Contact Info) Description 06/23/2024 Orders Only [facility] [address] [place] [address] Bethany Brink PA [address] [place] [address] Chronic kidney disease, stage 2 (mild); Essential [...] Care Team (Late st Contact Info) Description 05/05/2025 9:20 AM EST Office Visit [facility] [address] [place] [address] Raffi Kraft MD [address] [place] [address] documented as of this encounter Visit Diagnoses Diagnosis Chronic kidney disease, stage 2 (mild) Essential (primary) hypertension Type 2 diabetes mellitus with diabetic chronic kidney disease (HCC) documented in this encounter Care Teams Director Franchise Sales Relationship Specialty Start Date End Date Minnie Almonte NP [address] [place] [address] PCP - General Nurse Practitioner 10/14/24 documented as of this encounter
--- OUTSIDE RECORDS SUMMARY | 2025-02-27 08:11 | XMS_ITS | Clinical Summary ---
Author Organization [facility] Address [address] [place] [address] Care Team Providers Care Automotive Parts Specialist Name Role Phone Poonam Garcia MD Primary Care Provider [phone] Social History Tobacco Use Types Packs/Day Years Used Date Smoking Tobacco: Never Assessed Sex and Gender Information Value Date Recorded Sex Assigned at Not on file Legal Sex Male 6:28 PM EST Gender Identity Not on file Sexual Orientation Not on file Plan of Treatment Health Maintenance Due Date Last Done Comments Advance Care Planning 1955 Hepatitis C Virus Screening 1955 DTaP/Tdap/Td Vaccines [...] Insurance MEDICAID OUT OF STATE [facility] Care Teams Automotive Parts Specialist Relationship Specialty Start Date End Date Poonam Garcia MD PCP - General Surgery, General 11/06/19
--- OUTSIDE RECORDS SUMMARY | 2025-02-27 08:11 | XMS_ITS | Encounter Summary ---
Author Organization [facility] [employer] Address [address] [facility] [address] [place] [address] Care Team Providers Care Financial Health Counselor Name Role Phone Minnie Almonte Primary Care Provider [phone] Coni Singh PharmD Unavailable Reason for Visit * Reason Comments Med Refill Encounter Details Date Type Department Care Team (Late st Contact Info) Description 09/12/[address] [facility] [address] [place] [address] Minnie Almonte ANP [address] [place] [address] Hyperlipidemia associated with type 2 diabetes mellitus ([facility]) Social History Tobacco Use Types Packs/Day Years [...] Description 03/09/2025 9:00 AM EDT Medication Management [facility] [address] [place] [address] Coni Singh, PharmD [address] [place] [address] documented as of this encounter Visit Diagnoses Diagnosis Hyperlipidemia associated with type 2 diabetes mellitus (CMS/HCC) documented in this encounter Care Teams Financial Health Counselor Relationship Specialty Start Date End Date Minnie Almonte ANP [address] [place] [address] PCP - General Family Medicine 04/15/21 Coni Singh PharmD [address] [place] [id number] Pharmacist Internal Medicine 12/09/24 documented as of this encounter
--- OUTSIDE RECORDS SUMMARY | 2025-02-27 08:11 | XMS_ITS | Encounter Summary ---
Author Organization [facility] Address [address] [place] [address] Phone Care Team Providers Care Machine Cleaner Name Role Phone Minnie Almonte NP Primary Care Provider [phone] Encounter Details Date Type Department Care Team (Late Contact Info) Description 10/17/2024 Documentation Only [facility] [address] [place] [address] [place], [place] [address] [place] [address] Social History Tobacco Use Types Packs/Day Years [...] Visit [facility] [address] [place] [address] Raffi Kraft MD [address] [place] [address] [place] [address] documented as of this encounter Visit Diagnoses Not on filedocumented in this encounter Care Teams Machine Cleaner Relationship Specialty Start Date End Date Minnie Almonte NP [address] [place] [address] [id number] PCP - General Nurse Practitioner 10/14/24 documented as of this encounter
--- OUTSIDE RECORDS SUMMARY | 2025-02-27 08:11 | XMS_ITS | Clinical Summary ---
Author Organization [facility] Address [address] [place] [address] [place] [address] Phone Care Team Providers Care Bronzer Name Role Phone Minnie Almonte NP Primary Care Provider [phone] Allergies Active Allergy Reactions Criticality Noted Date [...] A DAY NEEDED. MAX 6 TABLETS/24 HOURS 0 Active alendronate (FOSAMAX) 70 MG tablet 0 Active amLODIPine (NORVASC) 10 MG tablet 0 Active D3-1000 25 MCG (1000 UT) capsule 0 Active clonazePAM (KlonoPIN) 1 MG tablet 0 Active clopidogrel (PLAVIX) 75 MG tablet 0 Active cyclobenzaprine (FLEXERIL) 10 MG tablet TOME GARY TABLETA VIA ORAL JERAD VECES AL MARA CONNIE SEA NECESARIO PARA BACK PAIN 0 Active escitalopram (LEXAPRO) 20 MG tablet 0 Active losartan (COZAAR) 100 MG tablet 0 Active metFORMIN XR (GLUCOPHAGE-XR) 500 MG 24 hr tablet 0 Active montelukast (SINGULAIR) 10 MG tablet Take 10 mg by mouth 1 (one) time each day in the evening 0 Active pravastatin (PRAVACHOL) 20 MG tablet 0 Active risperiDONE (RisperDAL) 2 MG tablet 0 Active raNITIdine (ZANTAC) 150 MG tablet Take 150 mg by mouth 2 (two) times a day Active Calcium Carbonate (CALCIUM 500 PO) Take 500 mg by mouth 1 (one) time each day Active famotidine (PEPCID) 20 MG tablet Take 20 mg by mouth 2 (two) times a day Active Trulicity 1.5 MG/0.5ML solution auto-injector Inject 1.5 mg under the skin once a week 5 Active Active Problems Problem Noted Date Diagnosed Date Chronic kidney disease, stage 2 (mild) 1 Essential (primary) hypertension 10/11/2020 Type 2 diabetes mellitus wit h diabetic chronic kidney disease 04/07/2020 Resolved Problems Problem Noted Date Diagnosed Date Resolved Date Neuropathy due to diabetes mellitus 04/07/2020 04/25/2021 Hyperlipidemia 04/07/2020 04/25/2021 Proteinuria 04/07/2020 04/25/2021 Renal disorder due to type 2 diabetes mellitus 04/07/2020 04/25/2021 Encounters Date Type Department Care Team Description 01/13/2025 10:20 AM EDT Office [facility] [address] [place] [address] Raffi Kraft MD Essential (primary) hypertension (Primary [...] Visit [facility], [address] [place] [address] Raffi Kraft MD [address] [place] [address] Health Maintenance Due Date Last Done Comments Colorectal Cancer Screening: Annual FOBT 2005 Colorectal Cancer Screening: Colonoscopy 2005 Colorectal Cancer Screening: Sigmoidoscopy 2005 Diabetes: Ophthalmology Exam 09/15/2019 Diabetes: Pedal Pulse Checked 09/15/2019 Diabetes: Sensory Foot Exam 09/15/2019 Diabetes: Visual Foot Exam 09/15/2019 Influenza Vaccine (#1) 2025 4, 04/03/2022, 05/05/2021, Additional history exists Diabetes: Hemoglobin A1C 03/22/2025 025, 11/20/2024, 08/21/2024, Additional history exists Hepatitis B Vaccine Aged Out 03/26/2015 No longe r eligible based on patient's age to complete this topic Pneumococcal Vaccine: 50+ Years Completed 04/10/2023, 09/13/2021, 02/23/2009 Pneumococcal Vaccine: Peds (0 to 5 Years) and At-Risk Patients (6 to 49 Years) Discontinued 04/10/2023, 09/13/2021, 02/23/2009 Insurance [facility] [employer] Dual SNP ([id number]) [place] [id number] Care Teams Bronzer Relationship Specialty Start Date End Date Minnie Almonte NP [address] [place] [id number] PCP - General Nurse Practitioner 10/14/24
[2025-02-27 09:44] LABS: Anion Gap 12 (12-20); Blood Urea Nitrogen 16 mg/dL (9-16); Calcium 10.1 mg/dL (8.4-10.2); Carbon Dioxide 28 mmol/L (22-29); Chloride 104 mmol/L (96-108); Estimated Glomerular Filt Rate > 60; Potassium 3.8 mmol/L (3.3-5.1); Sodium 140 mmol/L (135-145)
== END 2025-02-27 08:03 | disposition home or self-care (01) ==
LOC: HO.LAB 08:02
PROVIDERS: PCP Nurse Practitioner Primary Care; Visit Provider Nurse Practitioner Primary Care
DX: I10 Essential (primary) hypertension (principal)
CPT/HCPCS: 36415; 80048

== ENCOUNTER 2025-06-06 09:54 | Outpatient (REF) | payer OTHER, SELFPAY ==
--- OUTSIDE RECORDS SUMMARY | 2025-06-06 09:58 | XMS_ITS | Clinical Summary ---
Author Organization [facility] Address [address] [place] [address] Care Team Providers Care Car Washer Name Role Phone Poonam Garcia MD Primary Care Provider [phone] Social History Tobacco Use Types Packs/Day Years [...] Vaccine (1 of 2) 2006 Influenza Vaccine 01/23/2025 COVID-19 Vaccine (1 - 2023-2 5 season) 2025 RSV Vaccine 50 years and old er and Patients (1 - 1-dose 75+ series) 08/27/2031 Hepatitis B Vaccines Aged Out No long er eligible based on patient's age to complete this topic Insurance MEDICAID OUT OF STATE [facility] Care Teams Car Washer Relationship Specialty Start Date End Date Poonam Garcia MD PCP - General Surgery, General 11/06/19
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
[2025-06-06 11:48] LABS: Microalbum/Creatinine Ratio Ur 56.0 ug/mg cr (<30)
[2025-06-06 11:58] LABS: Alanine Aminotransferase 45 U/L (0-40); Albumin Level 4.5 g/dL (3.5-5.0); Alkaline Phosphatase 79 U/L (39-117); Anion Gap 14 (12-20); Aspartate Amino Transferase 27 U/L (5-37); Blood Urea Nitrogen 21 mg/dL (9-16); Calcium 9.7 mg/dL (8.4-10.2); Carbon Dioxide 27 mmol/L (22-29); Chloride 103 mmol/L (96-108); Estimated Glomerular Filt Rate > 60; Potassium 4.1 mmol/L (3.3-5.1); Sodium 140 mmol/L (135-145); Total Protein 7.4 g/dL (6.5-8.0)
== END 2025-06-06 09:55 | disposition home or self-care (01) ==
LOC: HO.LAB 09:54
PROVIDERS: Absent Provider Nurse Practitioner Primary Care; PCP Nurse Practitioner Primary Care; Visit Provider Internal Medicine Nephrology
DX: G25.2 Other specified forms of tremor (principal); E11.69 Type 2 diabetes mellitus with other specified complication; E78.5 Hyperlipidemia, unspecified; I10 Essential (primary) hypertension
CPT/HCPCS: 36415; 80048; 80076; 82043; 82570; 84443